=== PATIENT | female | born 1995 | race Caucasian/White ===

== ENCOUNTER 2017-10-13 15:16 | Emergency (ER) | payer BC, SELFPAY ==
[2017-10-13 15:21] VITALS: BP 131/81; PULSE 88; RESP 16; TEMP 37; O2SAT 98
[2017-10-13 15:43] LABS: Clarity Sl Cloudy
[2017-10-13 15:44] LABS: Bilirubin Color Interference (Negative); Blood Color Interference (Negative); Glucose Color Interference mg/dL (Negative); Ketones Color Interference mg/dL (Negative); Leukocyte Esterase Color Interference (Negative); Nitrite Color Interference (Negative); Urobilinogen Color Interference EU/dL (Up TO 0.2)
[2017-10-13 15:49] LABS: Bacteria Many HPF (Negative); C & S Indicated? Yes; RBC >50 (0-2); WBC >50 HPF (0-5)
--- NOTE | 2017-10-13 15:53 | ED.GENADUL ---
Disposition Clinical Impression: Urinary tract infection Disposition: HOME Condition: Stable Instructions: Urinary Tract Infection in Women (ED) Additional Instructions: Return immediately for any new or worsening symptoms including high fevers, persistent vomiting, or any further concerns she may have. Otherwise follow-up with your primary care provider as previously scheduled for next week for reassessment and take your antibiotics until fully complete. Prescriptions: Cephalexin [Keflex] 500 mg PO Q8H #21 cap Ondansetron ODT [Zofran Odt] 4 mg PO Q8H PRN #9 tabef PRN Reason: Nausea Referrals: Cristina Brown PA [Primary Care Provider] - 1 week (Follow-up with your primary care provider as previously arranged for reassessment.) Medical Decision Making - Lab Data Laboratory Tests 10/13/17 15:25 Urine Color [place] Urine Clarity Sl cloudy Urine pH Not Applicable Ur Specific [place] 1.020 Urine Protein Color interference Urine Ketones Color interference Urine Blood Color interference Urine Nitrite Color interference Urine Bilirubin Color interference Urine Urobilinogen Color interference Ur Leukocyte Esterase Color interference Urine RBC >50 H Urine WBC >50 Ur Epithelial Cells Not Applicable Urine Crystals Not Applicable Urine Bacteria Many Urine Mucus Not Applicable Ur Culture Indicated? Yes Urine Glucose Color interference Results reviewed for labs ordered during visit: Yes - Medical Decision Making Patient presenting to the emergency department for chief complaint of burning urination, and less than 24 hours of right flank pain and some associated nausea. Physical exam shows right CVA tenderness and suprapubic tenderness otherwise unremarkable exam. Patient did state that she has had vaginal discharge for years and no change in this and no odor vaginal exam was offered but she stated no chance of sexually transmitted disease and that due to this going on for years she would prefer to follow-up with gynecology for exam. I feel that deferring this exam at this time is appropriate given symptoms are more consistent with urinary tract infection and more suspicion of radiation to right flank and actually pyelonephritis given the patient's vital signs are stable and patient is overall well in appearance nontoxic. Plan to perform urinalysis and test. After review of urinalysis which is obscured by patient taking AZO tablets but does show significant number of WBCs and bacteria culture was automatically ordered by lab and I do feel that treatment is warranted. Patient was previously on Bactrim within 6 months so I do feel that putting patient on Keflex is appropriate at this time. Patient prescribed Keflex 500 mg every 8 hours for 7 days and informed that she should follow-up with her primary care provider in 1 week for reassessment. Patient to return immediately for any new or worsening symptoms. Patient also prescribed Zofran for any further nausea. Patient encouraged to return for any new or worsening symptoms including high fevers, persistent vomiting, or any further concerns she may have. After discussion of diagnosis and plan of care with patient patient agreed and stated no further needs, questions, or concerns at this time. History of Present Illness - General Chief complaint: Urinary Stated complaint: KIDNEY PAIN, UTI Time Seen by Provider: 10/13/17 15:22 - History of Present Illness Initial comments: Patient reports 3 days ago she began having some suprapubic pain and burning with urination. She did have symptoms a couple weeks ago and was seen at [facility] but never started her antibiotics. Yesterday she began having significant flank pain along with the burning urination is now feeling sick. She did state that she got nauseous along with her symptoms but otherwise denies fever chills, vomiting, diarrhea. Onset/Timin -: days(s) Location: back (flank), abdomen (Suprapubic) Severity scale (1-10): 8 Quality: aching Consistency: constant Improves with: none Worsens with: none Associated Symptoms: denies other symptoms Treatments Prior to Arrival: other (AZO) - Related Data Acetaminophen [Tylenol] 325 mg PO PRN 04/19/17 Norelgestromin/Ethin.estradiol [Xulane Patch] 1 each TD weekly 90 Days #9 patch.wk 06/02/17 Ibuprofen [Motrin] 600 mg PO TID PRN #15 tab 07/19/17 Cephalexin [Keflex] 500 mg PO Q8H #21 cap 10/13/17 Ondansetron ODT [Zofran Odt] 4 mg PO Q8H PRN #9 tabef 10/13/17 Allergies Allergy/AdvReac Type Severity Reaction Status Date / Time aspirin AdvReac Intermediate Nausea Unverified 07/19/17 06:30 Review of Systems Constitutional: malaise. denies: chills, fever Respiratory: no symptoms reported Gastrointestinal: abdominal pain (Suprapubic), nausea. denies: vomiting, diarrhea Genitourinary: as per HPI, urgency, dysuria, frequency, discharge (For years with no change, no odor). 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 Absent: respiratory distress, wheezes, rales, rhonchi, stridor - Cardiovascular Cardiovascular Exam: Present: regular rate, normal rhythm, normal heart sounds. Absent: tachycardia, systolic murmur, diastolic murmur, rubs, gallop, clicks - GI/Abdominal GI/Abdominal exam: Present: soft, tenderness (Suprapubic), normal bowel sounds. Absent: guarding, rebound, rigid, organomegaly, mass, bruit - Expanded GI/Abdominal Exam No standard instances GI/Abdominal exam: Absent: Mendieta's sign, Rovsing's sign, tenderness at Mcburney's Point - Back Exam Back exam: Present: CVA tenderness (R). Absent: CVA tenderness (L) - Neurological Exam Neurological exam: Present: alert, oriented X3, normal gait. Absent: altered - Skin Skin exam: Present: warm, dry, normal color Course Vital Signs - 24 hr 10/13/17 15:21 Temperature 37.0 C Pulse 88 Respiratory 16 Rate Blood Pressure 131/81 Pulse Oximetry 98
[2017-10-13] MEDS: Cephalexin 500 MG CAP PO (16:10)
[2017-10-13] MEDS: Ondansetron O.D.T. 4 MG TABEF PO (16:10)
[2017-10-13 16:13] VITALS: BP 131/81; PULSE 88; RESP 16; TEMP 37; O2SAT 98
== END 2017-10-13 16:20 | disposition home or self-care (01) ==
PROVIDERS: Emergency Provider Physician Assistant; PCP Physician Assistant Medical
DX: N39.0 Urinary tract infection, site not specified (principal); B96.20 Unspecified Escherichia coli [E. coli] as the cause of diseases classified elsewhere
CPT/HCPCS: 81025; 87077; 99283; 81003; 81015; 87086; 87186

== ENCOUNTER → 2017-10-19 18:05 | Outpatient (REF) | payer BC, SELFPAY ==
[2017-10-19 20:57] LABS: Epithelial Cells Many HPF (Negative); Other Cells Mod Transitional (Negative); WBC 20-50 HPF (0-5)
[2017-10-19 20:58] LABS: Bacteria Many HPF (Negative); C & S Indicated? No/Sq. Contamination; Crystals Negative HPF (Negative); Mucus Moderate (Negative)
== END ==
LOC: NCHCN 18:05
PROVIDERS: PCP Physician Assistant Medical; Visit Provider Specialist/Technologist Athletic Trainer
DX: N39.0 Urinary tract infection, site not specified (principal); R10.2 Pelvic and perineal pain
CPT/HCPCS: 81015; 87480; 87510; 87660

== ENCOUNTER 2017-11-15 18:54 | Outpatient (REF) | payer BC, SELFPAY | END 2017-11-15 19:14 | LOC: NCHCN 18:54 | PROVIDERS: PCP Physician Assistant Medical; Visit Provider Physician Assistant Medical | DX: R11.0 Nausea (principal); R31.9 Hematuria, unspecified; R10.9 Unspecified abdominal pain | CPT/HCPCS: 87086 ==

== ENCOUNTER 2017-11-17 13:16 | Outpatient (CLI) | payer BC, SELFPAY ==
--- NOTE | 2017-11-17 12:52 | DI.US_ITS ---
SYMPTOMS/DIAGNOSIS: JUDY FLANK PAIN, BLOOD IN URINE, ? KIDNEY STONES RENAL ULTRASOUND: Comparison is made with renal colic CT dated [id number]. The kidneys are normal in size and show normal parenchymal thickness and echogenicity. No renal calculi or hydronephrosis is seen. There is no perinephritic collection. The bladder prevoid volume measured 171 cc's. Both ureteral jets were identified. There is no postvoid residual. No bladder mass or bladder stone is seen. IMPRESSION: Negative renal ultrasound.
== END 2017-11-17 13:36 ==
PROVIDERS: PCP Physician Assistant Medical; Visit Provider Specialist/Technologist Athletic Trainer
DX: R31.9 Hematuria, unspecified (principal); R10.31 Right lower quadrant pain; R10.32 Left lower quadrant pain
CPT/HCPCS: 76770

== ENCOUNTER 2017-11-29 15:19 | Outpatient (REF) | payer BC, SELFPAY ==
[2017-12-01 10:45] LABS: HIV-1/2 Ag & Ab Screen Negative (NEGAT)
[2017-12-01 12:25] LABS: Hepatitis C Ab w Rflx HCV PCR Negative (NEGAT)
[2017-12-01 12:29] LABS: Syphilis Serology (RPR) Negative (Negative)
[2017-12-01 14:22] LABS: Chlamydia Result Negative; GC Result Negative; Specimen Description CERVIX
== END 2017-11-29 15:39 ==
LOC: NCHCN 15:19
PROVIDERS: PCP Physician Assistant Medical; Visit Provider Physician Assistant Medical
DX: N89.8 Other specified noninflammatory disorders of vagina (principal); Z11.3 Encounter for screening for infections with a predominantly sexual mode of transmission; Z11.4 Encounter for screening for human immunodeficiency virus [HIV]; Z01.84 Encounter for antibody response examination; N39.0 Urinary tract infection, site not specified
CPT/HCPCS: 86803; 87389; 87491; 87591; 86592; 87086; 87480; 87510; 87660

== ENCOUNTER 2018-03-02 16:43 | Outpatient (REF) | payer BC, SELFPAY ==
[2018-03-05 13:56] LABS: Chlamydia Result Negative; GC Result Negative
== END 2018-03-02 17:03 ==
LOC: LBN 16:43
PROVIDERS: PCP Physician Assistant Medical; Visit Provider Obstetrics & Gynecology Gynecology
DX: R10.2 Pelvic and perineal pain (principal); Z11.3 Encounter for screening for infections with a predominantly sexual mode of transmission
CPT/HCPCS: 87491; 87591; 87480; 87510; 87660

== ENCOUNTER 2018-04-11 15:56 | Emergency (ER) | payer BC, SELFPAY ==
--- NOTE | 2018-04-11 16:34 | NUR.NOTE ---
last night PT developed flank pain 7/10 bilateral and when the PT urinates she states 10/10 pain in her urethra. urin dark urn (ornge/brown) pt has a history of UTIs she states more than i can count
[2018-04-11 16:39] VITALS: BP 134/70; PULSE 95; RESP 15; TEMP 36.8; O2SAT 99
[2018-04-11 17:25] LABS: Clarity Cloudy; Specific Gravity 1.025 (1.005-1.025)
[2018-04-11 17:46] LABS: WBC >50 HPF (0-5)
[2018-04-11 17:47] LABS: C & S Indicated? Yes; RBC >50 (0-2)
--- NOTE | 2018-04-13 19:07 | NUR.NOTE ---
Nursing Note: called patient at 1900 04/13/2018 regarding positive Escherichia coli in urine patient stated that she eloped from our ED and received care the same day at [facility] she received levofloxacin 500 mg daily for 7 days. I reported her treatment to DR. Kendall and he stated that it was appropriate.
== END 2018-04-11 18:43 ==
PROVIDERS: Emergency Provider Physician Assistant; PCP Family Medicine
DX: N39.0 Urinary tract infection, site not specified (principal); Z53.21 Procedure and treatment not carried out due to patient leaving prior to being seen by health care provider
CPT/HCPCS: 87077; 99282; 81003; 81015; 87086; 87186

== ENCOUNTER 2019-07-19 16:33 | Emergency (ER) | payer BC, SELFPAY ==
--- NOTE | 2019-07-19 16:36 | ED.GENADUL_ITS ---
Discharge Plan Disposition Patient Disposition: HOME Condition: Good Discharge Details Chief Complaint: FlankPain Clinical Impression: Abdominal pain, Hypokalemia Primary Care Provider: Chika Fleming V ED Provider: Ana M Villeda Home Meds and New Rx's Prescriptions: New ondansetron 4 mg tablet,disintegrating 4 mg PO Q6H PRN (Reason: nausea and vomiting) Qty: 14 RF: 0 Continued acetaminophen [Tylenol] 325 MG tablet 325 mg PO PRN RF: 0 norethindrone acetate 5 mg tablet 5 mg PO DAILY RF: 0 Lupron Depot (6 Month) 45 mg Syringe Kit 45 mg IM [id number] RF: 0 Discharge Instructions Instructions: Hypokalemia (ED), Abdominal Pain (ED) Additional Instructions: Encourage water intake. You may use the Zofran as prescribed to help with any recurrence of your nausea. Please call Dr. Desouza tomorrow morning to schedule follow-up appointment to discuss your recurrence abdominal discomfort. Your labs are reassuring here. Your potassium was low. You may replace this either with oral supplementations and vitamins or increase your potassium in your diet. If you develop new or worsening symptoms please seek care urgently once again. Referrals: Chika Fleming MD [Primary Care Provider] - Wyatt Desouza [ [facility] ST[facility]FF PHYSICIAN] - Discharge Data Discharge Date/Time-TO BE ENTERED AT DEPARTURE: 07/19/19 18:37 Medical Decision Making Patient is a pleasant 24-year-old female with past medical history of multiple urinary tract infections, anxiety, BV, chlamydia, depression, endometriosis presenting today with chief complaint of 1 month of nausea and left-sided abdominal pain. She reports that she is having nausea for the past month since stopping her leuprolide. She reports that the Lupron was helping with this chronic nausea that she associated with her endometriosis. Patient reports that she had an exploratory laparotomy in January. Is been on the Lupron since that time. Patient reports that the current symptoms are very similar to when her endometriosis historically. She is concerned this may be returning. She denies any unusual vaginal discharge. No dysuria. Has had UTIs historically and states that this does not feel similar. Denies any fevers or chills. Left- sided abdominal pain began this afternoon and does radiate around to the left flank. This pain is worse with rotational movements, particularly rotation to the right. She denies any chest pain or shortness of breath. Denies any alcohol intake. No illicit drug use. On exam, patient is resting comfortably. Lungs are clear, normal cardiac exam, no CVA tenderness. Although patient endorses some mild discomfort along the length of the left side of the abdomen, no peritoneal findings were noted. Patient is not tender over her pelvis. At this point, patient's history is most concerning for recurrent endometriosis. Her abdominal exam is without evidence of surgical abdomen. No pain over McBurney's point, negative Mendieta sign. She has no tenderness over her pelvis. History and exam are not consistent with ovarian torsion. UPT is negative, history is not consistent with ectopic . Patient has had multiple CTs historically. I do not feel that imaging is warranted at this time and will begin with baseline screening labs. Labs were reviewed and discussed with the patient. Urine was contaminated. However, she is largely asymptomatic at this time. She reports that this does not feel like her urinary tract infections have historically. Patient's potassium is low at 3.2. She was given oral supplementation here and I did enco urage potassium intake at home. No leukocytosis. Labs otherwise without significant abnormality. Patient is very teary. She states that this feels very similar to when she has had endometriosis historically. She is concerned that the cessation of the Lupron caused her symptoms to return. She states that this is very debilitating for her historically. She is followed closely by gynecology at [facility]. Encourage that she follow Dr. Desouza to schedule more prompt follow-up appointment. She does have appointment in a few weeks. Patient did have good resolution of her symptoms while on Lupron. Patient and I discussed new/worsening symptoms that should prompt her to seek care urgently once again. [facility] General Mode of arrival: ambulatory . Date/Time Provider Initiated Documentation: 07/19/19 16:34 . Limitations to Documentation: no limitations . Information obtained by: patient and RN notes reviewed . History of Present Illness 24 year old F presents to the emergency department with the chief complaint of left sided abdominal pain, nausea, described as moderate and similar to prior episodes (endorses chronic abdominal pain associated with endometriosis. L sided pain new today. Nausea x 1 month), with intensity rated at 5. Quality is described as aching, and is localized to the abdomen. Patient reports radiation to back. Patient started experiencing this hour(s) (left sided abdominal pain began this morning) and it has been constant. Immobilization improves symptom(s), Movement worsens symptoms . Patient notes loss of appetite and nausea/vomiting (endorses nausea x 1 month); denies chest pain, cough, fever/chills, rash and shortness of breath. Patient did receive the following treatments prior to arrival, none Related Data Home Medications Medication Instructions Recorded Confirmed acetaminophen [Tylenol] 325 mg PO PRN 04/19/17 07/19/19 Lupron Depot (6 Month) 45 mg IM [id number] 07/19/19 07/19/19 norethindrone acetate 5 mg PO DAILY 07/19/19 07/19/19 ondansetron 4 mg PO Q6H PRN #14 tab 07/19/19 Previous Rx's Medication Instructions Recorded ondansetron 4 mg PO Q6H PRN #14 tab 07/19/19 Allergies Allergy/AdvReac Type Severity Reaction Status Date / Time aspirin AdvReac Intermediate Nausea Unverified 07/19/19 16:42 General SANTHOSH: 3 Review of Systems Constitutional Constitutional: Reports as per HPI, Denies chills, Denies fatigue, Denies fever(s) and Denies headache(s) ENT Ears, Nose, Mouth, and Throat: Denies headache(s) Cardiovascular Cardiovascular: Reports as per HPI, Denies chest pain and Denies dyspnea Respiratory Respiratory: Reports as per HPI, Denies cough and Denies dyspnea Gastrointestinal Gastrointestinal: Reports as per HPI Musculoskeletal Musculoskeletal: Reports as per HPI and Denies back pain Integumentary/Breasts Skin/Breast: Reports as per HPI and Denies rash Neurologic Neurologic: Reports as per HPI and Denies headache(s) Endocrine Endocrine: Denies fatigue [facility] Medical History BV (bacterial vaginosis) (Resolved) 11/2016. Rx with Metronidazole 03/20/17. Rx with Metronidazole. Chlamydia infection (Resolved) 04/17/14. Treated with neg LEANNE. 06/04/15 New infection. Rx with Azithromycin 03/29/2016 Rx with Azithromycin. LEANNE neg 05/02/16. Contraceptive management (Acute) 03/2014 Nexplanon 07/2016 Nexplanon removed. OCPs started. 09/2016 Noncompliant with OCPs. Mirena IUD inserted. 05/2017 Mirena removed, Ortho Evra patch initiated Dysmenorrhea in adolescent (Resolved) improved with hormonal contraception. Frequent headaches (Resolved) ? menstrual related. UTI (urinary tract infection) (Resolved) 03/2017 EColi. Surgical History Repair of umbilical hernia (Resolved ~2010) Family History (Updated 03/12/14 @ 22:30 by Vero Simpson MD) Mother No problems noted. Other Graves disease Social History Smoking/Tobacco Use Status: Never Alcohol Intake: never Drug use: Current Sobriety Substance use type: marijuana and other Details: marijauna daily 4-5 x day Housing: house Number of Children: 0 current occupation: [employer] Sexually active: Yes Seatbelt use: always Do you feel safe in your relationship?: Yes Female Reproductive History Menstrual control method: patch Exam Const General: cooperative, healthy appearing, comfortable, no acute distress and well developed Nutritional Appearance: average body habitus and well nourished Orientation: alert and awake HENMT Head: normal to inspection Mouth: moist mucous membranes Resp Effort & Inspection: normal respiratory effort, able to speak in complete sentences and no respiratory distress Auscultation: clear to auscultation bilaterally, no rales, no rhonchi and no wheezes Cardio Rate: regular rate Rhythm: regular rhythm Heart Sounds: S1 normal and S2 normal GI Inspection: normal to inspection, no abdominal wall ecchymosis, no edema, non- distended, no visible herniation and no visible pulsation Palpation: soft, no hepatosplenomegaly, not firm, no guarding, no hernias, no masses, not rigid and tender (fairly diffuse tenderness along left side) obturator sign negative, psoas sign negative and with no rebound tenderness Percussion: normal to percussion Auscultation: normal bowel sounds Back/Spine/Pelvis Back: no CVA tenderness Thoracic/Lumbar Spine: thoracic and lumbar spine normal to inspection (tenderness with rotation to right side) Skin General skin exam: no rashes or lesions noted Trauma: no lacerations or abrasions Neuro General: patient alert and patient awake Cognition: normal cognition Speech: speech normal Gait: normal gait Psych Appearance: grossly normal and well kempt Mental Status: mental status grossly normal Speech and Movement: speech and movement normal
[2019-07-19 16:40] VITALS: BP 132/86; PULSE 89; RESP 18; TEMP 36.7; O2SAT 98
[2019-07-19] MEDS: Ondansetron 4 MG/2 ML VIAL IVP (17:03)
[2019-07-19] MEDS: Lactated Ringers 1,000 ML 1000 ML IV (17:03)
[2019-07-19] MEDS: Normal Saline Flush 10 ML SYR IVP (17:04)
[2019-07-19 17:43] LABS: ALT 20 U/L (14-59); AST 13 U/L (15-37); Albumin 4.7 g/dL (3.4-5.0); Alkaline Phosphatase 70 U/L (46-116); Anion Gap 4.2 mmol/L (3-11); BUN 12 mg/dL (7-18); Bilirubin, Total 0.4 mg/dL (0.2-1.0); CO2 30.8 mmol/L (21.0-32.0); CREATININE 0.91 mg/dL (0.55-1.02); Calcium 9.2 mg/dL (8.5-10.1); Chloride 101 mmol/L (98-107); Glucose 97 mg/dL (74-106); Lipase 80 U/L (73-393); Potassium 3.2 mmol/L (3.5-5.1); Sodium 136 mmol/L (136-145); Total Protein 8.5 g/dL (6.4-8.2)
[2019-07-19 17:54] LABS: Abs Immature Grans 0.01 k/cumm (0.0-0.09); Absolute Basophil Count 0.02 k/cumm (0.0-0.2); Absolute Eosinophil Count 0.04 k/cumm (0.0-0.7); Absolute Lymphocyte Count 2.08 k/cumm (1.2-3.4); Absolute Monocyte Count 0.51 k/cumm (0.11-0.7); Absolute Neutrophil Count 4.02 k/cumm (1.2-6.7); Basophils % 0.3; Eosinophils % 0.6; HCT 42.2 % (36.0-46.0); HGB 14.1 g/dL (12.0-15.5); Immature Grans % 0.1 %; Lymphocytes % 31.1; Mean Corp. HGB Concentration 33.4 g/dL (32.0-36.0); Mean Corpuscular Hemoglobin 30.1 pg (27.0-33.0); Mean Corpuscular Volume 90.2 fL (80-95); Mean Platelet Volume 10.5 fL (8.0-11.0); Monocytes % 7.6; Neutrophils % 60.3; Platelet Count 280 x1000/uL (130-400); RBC 4.68 m/cumm (4.00-5.20); RBC Distribution Width 11.7 % (11.7-14.6); White Blood Cell Count 6.68 k/cumm (4.4-10.8)
[2019-07-19 18:03] LABS: Bilirubin Negative (Negative); Blood Negative (Negative); Clarity Clear (Clear); Glucose Negative (Negative); Ketones Negative (Negative); Leukocyte Esterase Trace (Negative); Nitrite Negative (Negative); Specific Gravity 1.025 (1.005-1.025); Urobilinogen 0.2 EU/dL (Up TO 0.2); pH 7.5 (5-8)
[2019-07-19 18:08] LABS: RBC Negative HPF (0-2); WBC 0-2 HPF (0-5)
[2019-07-19 18:09] LABS: Bacteria Few HPF (Negative); C & S Indicated? No/Sq. Contamination; Casts Negative LPF (Negative); Crystals Moderate Amorphous HPF (Negative); Epithelial Cells Moderate HPF (Negative); Mucus Trace (Negative)
[2019-07-19] MEDS: POTASSIUM CHLORIDE 20 MEQ, POTASSIUM CHLORIDE 10 MEQ 30 MEQ PO (18:21)
== END 2019-07-19 18:37 | disposition home or self-care (01) ==
PROVIDERS: Emergency Provider Physician Assistant; PCP Family Medicine
DX: R10.32 Left lower quadrant pain (principal); M54.5 Low back pain; R11.0 Nausea; E87.6 Hypokalemia; Z87.440 Personal history of urinary (tract) infections
CPT/HCPCS: 36415; 80053; 81025; 83690; 96361; 96374; 99284; 81003; 81015; 85025; J2405

== ENCOUNTER 2019-12-18 08:10 | Emergency (ER) | payer SELFPAY ==
[2019-12-18 08:19] VITALS: BP 107/76; PULSE 110; RESP 16; TEMP 36.7; O2SAT 99
--- NOTE | 2019-12-18 08:38 | ED.GENADUL_ITS ---
Discharge Plan Disposition Patient Disposition: HOME Condition: Stable Discharge Details Clinical Impression: Diarrhea Primary Care Provider: Chika Fleming V ED Provider: Sohan Youngblood Home Meds and New Rx's Prescriptions: Continued acetaminophen [Tylenol] 325 MG tablet 325 mg PO PRN RF: 0 Discharge Instructions Instructions: Acute Diarrhea (ED) Additional Instructions: At this time you have declined any testing. Plenty of fluids to avoid dehydration. [id number] Imodium as directed for discomfort. Please watch for new or worsening symptoms and return to the ER for any concerns. Otherwise I recommend reaching out to your primary care provider at your convenience for outpatient care. Stand Alone Forms: Work Release Medical Decision Making 24-year-old female presents requesting a work note so she may return to work today. She had diarrhea and abdominal cramping yesterday which caused her to leave work early. She reports feeling much improved today, feels as though she can go to work normally, and denies any abdominal pain. She denies fever, black tarry stools, bright red blood in her stools, recent travel, sick contact or bad food exposure. She does admit that she is lactose intolerant and had milk 2 nights ago which may have caused her symptoms. She declines any blood work, IV access, IV fluids etc. She states I am sorry for wasting your time, I just need a work note. Patient appears well, nontoxic. Heart rate was 110 in triage but upon my evaluation she was in the upper 80s. Abdomen is soft, nontender. She is tolerating p.o. fluids without difficulty. Will provide work note to return to work at 9:00 this morning. She was encouraged to return to the ER for new or worsening symptoms, otherwise contact her primary care provider. Patient has no additional questions or concerns. Medical Records Medical records reviewed: Yes I reviewed the patient's medical records. HPI General Mode of arrival: ambulatory . Date/Time Provider Initiated Documentation: 12/18/19 08:12 . Limitations to Documentation: no limitations . Information obtained by: patient . HPI Narrative: 24-year-old female presents to the ER requesting a return to work note. She states that yesterday she left work early because she had mild diarrhea and is scheduled to return to work at 9 AM this morning, work requires her to be seen and obtain a work note. She reports that she is lactose intolerant, had milk the night before, and wonders if this may have caused her symptoms. She reports that this morning she feels significantly better than she did yesterday. She had mild abdominal cramping with the diarrhea yesterday but denies any pain today. Denies any recent travel, sick exposure, bad food exposure. She denies fever, chest pain, back pain, nausea, vomiting, dysuria, constipation, black tarry stools or bright red blood in her stools. She has made it known that she does not desire to have any blood work, IV access, IV fluid, etc. Related Data Home Medications Medication Instructions Recorded Confirmed acetaminophen [Tylenol] 325 mg PO PRN 04/19/17 12/18/19 Allergies Allergy/AdvReac Type Severity Reaction Status Date / Time aspirin AdvReac Intermediate Nausea Unverified 12/18/19 08:22 General Stated Complaint: Abd Prob SANTHOSH: 3 Review of Systems Constitutional Constitutional: Denies fever(s) and Denies headache(s) ENT Ears, Nose, Mouth, and Throat: Denies headache(s) Cardiovascular Cardiovascular: Denies chest pain Respiratory Respiratory: Denies cough Gastrointestinal Gastrointestinal: Reports abdominal pain, Denies melena, Denies hematochezia, Reports diarrhea, Denies nausea and Denies vomiting Musculoskeletal Musculoskeletal: Denies back pain Integumentary/Breasts Skin/Breast: Denies rash Neurologic Neurologic: Denies headache(s) [facility] Medical History BV (bacterial vaginosis) 11/2016. Rx with Metronidazole 03/20/17. Rx with Metronidazole. Chlamydia infection 04/17/14. Treated with neg LEANNE. 06/04/15 New infection. Rx with Azithromycin 03/29/2016 Rx with Azithromycin. LEANNE neg 05/02/16. Contraceptive management 03/2014 Nexplanon 07/2016 Nexplanon removed. OCPs started. 09/2016 Noncompliant with OCPs. Mirena IUD inserted. 05/2017 Mirena removed, Ortho Evra patch initiated Dysmenorrhea in adolescent improved with hormonal contraception. Frequent headaches ? menstrual related. UTI (urinary tract infection) 03/2017 EColi. Surgical History Repair of umbilical hernia (~2010) Family History Mother No problems noted. Other Graves disease Social History Smoking/Tobacco Use Status: Never Alcohol Intake: never Drug use: Current Sobriety Substance use type: marijuana and other Details: marijauna daily 4-5 x day Housing: house Number of Children: 0 current occupation: [employer] [place] [employer] Sexually active: Yes Seatbelt use: always Do you feel safe at home: Yes Do you feel safe in your relationship?: Yes Female Reproductive History Menstrual control method: patch Exam Const General: cooperative, healthy appearing, comfortable and no acute distress Orientation: alert and awake HENMT Head: normal to inspection, normocephalic and atraumatic Mouth: moist mucous membranes Eyes Conjunctivae: conjunctivae normal Sclera: sclerae normal Neck Neck: normal visual inspection, full ROM, trachea midline and supple Resp Effort & Inspection: normal respiratory effort and able to speak in complete sentences Auscultation: clear to auscultation bilaterally Cardio Rate: regular rate Rhythm: regular rhythm GI Palpation: soft, not firm, no guarding, not rigid and nontender Back/Spine/Pelvis Back: No back tenderness Skin General skin exam: no rashes or lesions noted Neuro General: patient alert, patient awake, moves all extremities and no focal motor deficits Cognition: normal cognition Speech: speech normal Gait: normal gait Sensory Exam: no sensory deficits noted Psych Appearance: grossly normal Mental Status: mental status grossly normal Course Vital Signs Vital signs: Vital Signs Temperature 36.7 C 12/18/19 08:19 Pulse 110 H 12/18/19 08:19 Respiratory Rate 16 12/18/19 08:19 Blood Pressure 107/76 12/18/19 08:19 Pulse Oximetry 99 12/18/19 08:19 Temperature 36.7 C 12/18/19 08:19 Temperature Source Tympanic 12/18/19 08:19 Pulse 110 H 12/18/19 08:19 Respiratory Rate 16 12/18/19 08:19 Blood Pressure 107/76 12/18/19 08:19 Blood Pressure Position Sitting 12/18/19 08:19 Pulse Oximetry 99 12/18/19 08:19 Oxygen Delivery Method Room Air 12/18/19 08:19 Oxygen Flow Rate 0 12/18/19 08:19 Pain Level 4 12/18/19 08:19
== END 2019-12-18 08:46 | disposition home or self-care (01) ==
PROVIDERS: Emergency Provider Physician Assistant; PCP Internal Medicine
DX: R19.7 Diarrhea, unspecified (principal); Z02.79 Encounter for issue of other medical certificate
CPT/HCPCS: 99282

== ENCOUNTER 2020-02-18 04:07 | Emergency (ER) | payer BC, SELFPAY ==
[2020-02-18 04:15] VITALS: BP 149/96; PULSE 89; RESP 18; TEMP 36.4; O2SAT 98
--- NOTE | 2020-02-18 04:27 | ED.GENADUL_ITS ---
Discharge Plan Disposition Patient Disposition: HOME Condition: Stable Discharge Details Clinical Impression: Nausea Primary Care Provider: Lucy Waters ED Provider: Chris Kendall Home Meds and New Rx's Prescriptions: New ondansetron 4 mg tablet,disintegrating 4 mg PO Q8H PRN (Reason: nausea and vomiting) Qty: 30 RF: 0 Discharge Instructions Additional Instructions: follow up as scheduled on monday with your provider you can take 1000mg tylenol and if not allergies to it 600mg ibuprofen every 6 hours if you feel more ill, have worsening pain or persistent vomit return to the emergency department Medical Decision Making 24 yo female who states she has a hx of endometriosis for which she is prescribed oxycodone, anxiety, comes in with lower abdominal and pelvic pain radiating to the back since yesterday. She didn't take any oxycodone or other medications as she felt like she may throw it up. She arrives tearful though when talking does speak clearly and seems less in pain. She localizes the pain to the left and right lower abdomen and is tender with no guarding or rebound and no upper abdominal tenderness. Denies vaginal bleeding or d/c and urine hcg negative. Could be exacerbation of her endometriosis but could also be torsion vs appendicitis vs diverticulitis among other pathology. I recommended lab work and a cat scan but she declines and states she just wants to have zofran to help her nausea. She has the capacity to make her own decisions and understands risks of missing these and other pathology that ct and lab work would show along with possible pelvic exam but she declines and just wants her nausea to go away as she states this feels just like her endometriosis. Will administer zofran and reassess. pt tolerating po and does have some relief of pain with tylenol and would like to go home and f/u with her obgyn as scheduled on monday. She still declinse workup at this time, she understands she can return if she would like lab work and imaging and another abdominal exam. Differential Diagnosis Differential Diagnosis: torsion, endometriosis, uti, ectopic, appendicitis Medical Records Medical records reviewed: Yes I reviewed the patient's medical records. HPI General Mode of arrival: ambulatory . Date/Time Provider Initiated Documentation: 02/18/20 04:19 . Limitations to Documentation: no limitations . Information obtained by: patient . History of Present Illness 24 year old F presents to the emergency department with the chief complaint of nausea, described as moderate, Patient started experiencing this day(s) (1) and it has been constant. No relieving factors improve symptom(s), No exacerbating factors reported . Patient notes denies cough. 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 Rx with Metronidazole 03/20/17. Rx with Metronidazole. Chlamydia infection 04/17/14. Treated with neg LEANNE. 06/04/15 New infection. Rx with Azithromycin 03/29/2016 Rx with Azithromycin. LEANNE neg 05/02/16. Contraceptive management 03/2014 Nexplanon 07/2016 Nexplanon removed. OCPs started. 09/2016 Noncompliant with OCPs. Mirena IUD inserted. 05/2017 Mirena removed, Ortho Evra patch initiated Dysmenorrhea in adolescent improved with hormonal contraception. Frequent headaches ? menstrual related. UTI (urinary tract infection) 03/2017 EColi. Surgical History Repair of umbilical hernia (~2010) Family History Mother No problems noted. Other Graves disease Social History Smoking/Tobacco Use Status: Never Smoking risk assessment performed?: Yes Alcohol Intake: never Drug use: Occasionally Substance use type: marijuana and other Details: rasheed daily 4-5 x day Housing: house Number of Children: 0 current occupation: [employer] [place] [employer] Sexually active: Yes Seatbelt use: always Do you feel safe at home: Yes Do you feel safe in your relationship?: Yes Female Reproductive History Menstrual control method: patch Exam Const General: anxious Orientation: alert HENMT Head: normal to inspection Ears: external ears normal General nose exam: external nose normal Mouth: moist mucous membranes Eyes General: appearance normal, both eyes and all related structures Neck Neck: normal visual inspection Resp Effort & Inspection: normal respiratory effort and able to speak in complete sentences Cardio Rate: regular rate GI Palpation: soft and not rigid Skin General skin exam: no rashes or lesions noted Neuro General: patient alert and patient oriented x3 Extrem General: normal to inspection Psych Mental Status: mental status grossly normal Course Vital Signs Vital signs: Vital Signs Temperature 36.4 C L 02/18/20 04:15 Pulse 89 02/18/20 04:15 Respiratory Rate 18 02/18/20 04:15 Blood Pressure 149/96 H 02/18/20 04:15 Pulse Oximetry 98 02/18/20 04:15 Temperature 36.4 C L 02/18/20 04:15 Temperature Source Skin 02/18/20 04:15 Pulse 89 02/18/20 04:15 Respiratory Rate 18 02/18/20 04:15 Respiratory Effort 02/18/20 04:22 Blood Pressure 149/96 H 02/18/20 04:15 Blood Pressure Position Sitting 02/18/20 04:15 Pulse Oximetry 98 02/18/20 04:15 Oxygen Delivery Method Room Air 02/18/20 04:15 Oxygen Flow Rate 0 02/18/20 04:15 Pain Level 10 02/18/20 04:22
[2020-02-18] MEDS: Ondansetron O.D.T. 4 MG TABEF PO (04:32)
[2020-02-18] MEDS: Acetaminophen 500 MG TAB 1000 MG PO (04:32)
[2020-02-18] MEDS: Ibuprofen 600 MG TAB PO (05:05)
== END 2020-02-18 05:15 | disposition home or self-care (01) ==
PROVIDERS: Emergency Provider Emergency Medicine; PCP Internal Medicine
DX: R11.0 Nausea (principal); N80.9 Endometriosis, unspecified
CPT/HCPCS: 81025; 99283

== ENCOUNTER 2020-05-08 07:07 | Emergency (ER) | payer BC, SELFPAY ==
[2020-05-08 07:09] VITALS: BP 123/83; PULSE 103; RESP 14; TEMP 36.4; O2SAT 97
--- NOTE | 2020-05-08 07:38 | W.ED.GENAD ---
Discharge Plan Disposition Patient Disposition: HOME Condition: Stable Discharge Details Clinical Impression: Conjunctivitis, Swelling of left eyelid Primary Care Provider: Lucy Waters ED Provider: Edna Duran Home Meds and New Rx's Prescriptions: No Action No Known Home Meds RF: 0 Discharge Instructions Instructions: Blepharitis (ED), Conjunctivitis (ED) Additional Instructions: Apply the erythromycin ointment to your left eye including the portion of your upper and lower eyelid most closest to your eye 4 times daily for the next 5 days. Alternate tylenol and motrin as needed and directed for pain. Follow-up with your primary care doctor in 1 week. Return to the emergency department with any worsening or new concerning symptoms, such as fever, increased pain, redness or swelling. Discharge Data Discharge Date/Time-TO BE ENTERED AT DEPARTURE: 05/08/20 08:43 Discharge Physician: Edna Duran Medical Decision Making 25-year-old female presents with left eye and eyelid irritation, itching and tenderness since last night. She is concerned about possible pinkeye. Vitals within normal limits. She appears nontoxic. She has minimal left conjunctival injection with minimal left upper and lower eyelid edema and erythema just closest lashes. PERRLA. EOMI. No pain with EOMI. normal ENT exam. No focal deficits. No meningeal signs. No lymphadenopathy. Presentation most likely consistent with an early bacterial conjunctivitis, also consider a superficial early bacterial infection of upper or lower eyelid or a stye. Does not appear consistent with periorbital or orbital cellulitis. History and presentation not consistent with allergic or viral conjunctivitis. As she has tenderness to her eyelid and also complained of yellow crusting, will treat with erythromycin ointment to her eye and eyelids. Advised to return here immediately if she develops any new or worsening symptoms such as fever, increased pain, redness or swelling for reevaluation. Medical Records Medical records reviewed: Yes I reviewed the patient's medical records. HPI General Mode of arrival: ambulatory. Date/Time Provider Initiated Documentation: 05/08/20 07:38. Limitations to Documentation: no limitations. Information obtained by: patient. HPI Narrative: Patient is a 25-year-old female presents with left eye and eyelid irritation, itching and tenderness since last night. Patient states she is concerned about possible pinkeye. She denies any known exposure to pinkeye. She states the left upper and lower eyelid is slightly tender to touch. She also admits to tearing and minimal crusted yellow discharge. She denies headache, dizziness, neck pain, runny nose, sore throat or cough. She admits to some blurry vision in her left eye. She denies any new soaps, lotions, detergents, face wash, and states she does not wear make-up. She denies any other new medications. Related Data Home Medications Medication Instructions Recorded Confirmed Unknown [No Known Home Meds] 05/08/20 05/08/20 Allergies Allergy/AdvReac Type Severity Reaction Status Date / Time aspirin AdvReac Intermediate Nausea Unverified 05/08/20 07:11 General Stated Complaint: EyeProblem SANTHOSH: 5 Review of Systems All systems reviewed & are unremarkable except as noted in HPI and below Constitutional Constitutional: Reports as per HPI, Denies chills and Denies fever(s) Eyes Eyes: Denies blurry vision, Reports irritation and Reports itchy eyes ENT Ears, Nose, Mouth, and Throat: Denies dizziness, Denies sore throat and Denies throat swelling Cardiovascular Cardiovascular: Denies chest pain and Denies dyspnea Respiratory Respiratory: Denies cough and Denies dyspnea Gastrointestinal Gastrointestinal: Denies abdominal pain, Denies diarrhea and Denies vomiting Genitourinary Genitourinary: Denies hematuria and Denies dysuria Musculoskeletal Musculoskeletal: Denies back pain and Denies numbness Integumentary/Breasts Skin/Breast: Denies lesions and Denies rash Neurologic Neurologic: Denies dizziness, Denies localized weakness and Denies numbness Allergic/Immunologic Allergic/Immunologic: Reports itchy eyes and Denies throat swelling [facility] Medical History BV (bacterial vaginosis) 11/2016. Rx with Metronidazole 03/20/17. Rx with Metronidazole. Chlamydia infection 04/17/14. Treated with neg LEANNE. 06/04/15 New infection. Rx with Azithromycin 03/29/2016 Rx with Azithromycin. LAENNE neg 05/02/16. Contraceptive management 03/2014 Nexplanon 07/2016 Nexplanon removed. OCPs started. 09/2016 Noncompliant with OCPs. Mirena IUD inserted. 05/2017 Mirena removed, Ortho Evra patch initiated Dysmenorrhea in adolescent improved with hormonal contraception. Frequent headaches ? menstrual related. UTI (urinary tract infection) 03/2017 EColi. Surgical History Repair of umbilical hernia (~2010) Family History Mother No problems noted. Other Graves disease Social History Smoking/Tobacco Use Status: Never Smoking risk assessment performed?: Yes Alcohol Intake: never Drug use: Daily Substance use type: marijuana Housing: house Number of Children: 0 current occupation: [employer] [place] [employer] Sexually active: Yes Seatbelt use: always Do you feel safe at home: Yes Do you feel safe in your relationship?: Yes Female Reproductive History Menstrual control method: patch Exam Const General: cooperative, healthy appearing and no acute distress HENMT Head: normal to inspection Ears: hearing grossly normal bilaterally, external ears normal and TM's normal bilaterally General nose exam: external nose normal Mouth: oral mucosae normal Throat: posterior oropharynx normal Eyes General: appearance normal, both eyes and all related structures Periorbital: periorbital findings normal Eyelids: eyelid abnormality left upper eyelid erythema (very minimal upper eyelid near lashes), swelling (mild edema lower part near lashes) and tenderness (lower aspect near lashes) and left lower eyelid swelling (mild area just below lashes) Conjunctivae: conjunctival abnormality left conjunctival injection (very minimal); without chemosis, without discharge, without pallor and without subconjunctival hemmorhages Sclera: sclerae normal Cornea: corneas normal Pupils: PERRL EOM: EOM intact bilaterally Neck Neck: normal visual inspection Resp Effort & Inspection: normal respiratory effort and able to speak in complete sentences Cardio Rate: regular rate Skin General skin exam: no rashes or lesions noted Neuro General: patient alert, patient awake and patient oriented x3 Motor: muscle tone normal throughout Extrem General: normal to inspection and full ROM Psych Appearance: grossly normal Affect: normal affect Course Vital Signs Vital signs: Vital Signs Temperature 97.5 F L 05/08/20 07:09 Pulse 103 H 05/08/20 07:09 Respiratory Rate 14 05/08/20 07:09 Blood Pressure 123/83 05/08/20 07:09 Pulse Oximetry 97 05/08/20 07:09 Temperature 97.5 F L 05/08/20 07:09 Temperature Source Oral 05/08/20 07:09 Pulse 103 H 05/08/20 07:09 Respiratory Rate 14 05/08/20 07:09 Respiratory Effort Non-Labored 05/08/20 07:24 Blood Pressure 123/83 05/08/20 07:09 Blood Pressure Position Sitting 05/08/20 07:09 Pulse Oximetry 97 05/08/20 07:09 Oxygen Delivery Method Room Air 05/08/20 07:09 Oxygen Flow Rate 0 05/08/20 07:09 Pain Level 3 05/08/20 07:09
[2020-05-08 08:43] VITALS: PULSE 96
[2020-05-08] MEDS: Erythromycin Ophth Oint 3.5 GM TUBE OU (08:43)
== END 2020-05-08 08:43 | disposition home or self-care (01) ==
PROVIDERS: Emergency Provider Physician Assistant; PCP Internal Medicine
DX: H10.022 Other mucopurulent conjunctivitis, left eye (principal); H01.00B Unspecified blepharitis left eye, upper and lower eyelids
CPT/HCPCS: 99283

== ENCOUNTER 2020-05-23 19:29 | Emergency (ER) | payer BC, SELFPAY ==
[2020-05-23 19:33] VITALS: BP 136/89; PULSE 86; RESP 16; TEMP 36.3; O2SAT 100
--- NOTE | 2020-05-23 19:58 | ED.GENADUL_ITS ---
Discharge Plan Disposition Patient Disposition: HOME Condition: Stable Discharge Details Clinical Impression: Dental infection Primary Care Provider: Lucy Waters ED Provider: Sohan Youngblood Home Meds and New Rx's Prescriptions: New ondansetron HCl [Zofran] 4 mg tablet 4 mg PO Q8H PRNQty: 10 RF: 0 amoxicillin 875 mg tablet 875 mg PO BID Qty: 20 RF: 0 No Action No Known Home Meds RF: 0 Discharge Instructions Instructions: Dental Abscess (ED) Additional Instructions: Amoxicillin and Zofran as directed. [id number] Tylenol and/or Motrin as directed for discomfort. Cool and/or warm compresses every 2 hours for 20 minutes. Please watch for new or worsening symptoms and return to the ER for any concerns. Using the dental list provided, please establish dental care on Monday during business hours. Medical Decision Making 25-year-old female presents complaining of left lower dental pain for the past 24-48 hours. She is concerned about a dental infection and is requesting antibiotics. Patient is comfortable taking [id number] medications for pain control. Given her nausea, I will give her a single dose of Zofran now and then her first dose of amoxicillin as pharmacies are closed, she can case picker her prescription tomorrow. I will also provide her with a dental list to help expedite outpatient dental care. She appears well, nontoxic, manages secretions no difficulty, no evidence of trismus. She was encouraged to return to the ER for new or worsening symptoms. Patient comfortable with this plan and has no additional questions or concerns. Medical Records Medical records reviewed: Yes I reviewed the patient's medical records. HPI General Mode of arrival: ambulatory . Date/Time Provider Initiated Documentation: 05/23/20 19:50 . Limitations to Documentation: no limitations . Information obtained by: patient . HPI Narrative: This is a 25-year-old female, past medical history that includes anxiety, headaches, presenting to the ER today reporting worsening left lower dental pain over the past 1-2 days. She has taken [id number] medication with minimal relief. She now feels na useous. She denies fever, difficulty swallowing or speaking. She is able to manage her secretions. Patient states that she uses marijuana daily but does not smoke cigarettes. She does not have any dental care and reports that she is probably not seen a dentist in at least 10 years. No additional concerns or complaints at this time Related Data Home Medications Medication Instructions Recorded Confirmed Unknown [No Known Home Meds] 05/08/20 05/23/20 amoxicillin 875 mg PO BID #20 tab 05/23/20 ondansetron HCl [Zofran] 4 mg PO Q8H PRN #10 tab 05/23/20 Previous Rx's Medication Instructions Recorded amoxicillin 875 mg PO BID #20 tab 05/23/20 ondansetron HCl [Zofran] 4 mg PO Q8H PRN #10 tab 05/23/20 Allergies Allergy/AdvReac Type Severity Reaction Status Date / Time aspirin AdvReac Intermediate Nausea Unverified 05/23/20 19:37 General Stated Complaint: DentalOral SANTHOSH: 5 Review of Systems Constitutional Constitutional: Denies fever(s) ENT Ears, Nose, Mouth, and Throat: Denies neck pain and Denies sore throat Gastrointestinal Gastrointestinal: Reports nausea Musculoskeletal Musculoskeletal: Denies neck pain [facility] Medical History BV (bacterial vaginosis) 11/2016. Rx with Metronidazole 03/20/17. Rx with Metronidazole. Chlamydia infection 04/17/14. Treated with neg LEANNE. 06/04/15 New infection. Rx with Azithromycin 03/29/2016 Rx with Azithromycin. LEANNE neg 05/02/16. Contraceptive management 03/2014 Nexplanon 07/2016 Nexplanon removed. OCPs started. 09/2016 Noncompliant with OCPs. Mirena IUD inserted. 05/2017 Mirena removed, Ortho Evra patch initiated Dysmenorrhea in adolescent improved with hormonal contraception. Frequent headaches ? menstrual related. UTI (urinary tract infection) 03/2017 EColi. Surgical History Repair of umbilical hernia (~2010) Family History Mother No problems noted. Other Graves disease Social History Smoking/Tobacco Use Status: Never Smoking risk assessment performed?: Yes Alcohol Intake: never Drug use: Daily Substance use type: marijuana Housing: house Number of Children: 0 current occupation: [employer] [place] [employer] Sexually active: Yes Seatbelt use: always Do you feel safe at home: Yes Do you feel safe in your relationship?: Yes Female Reproductive History Menstrual control method: patch Exam Const General: cooperative, healthy appearing, comfortable and no acute distress Orientation: alert and awake [facility] Head: normal to inspection, normocephalic and atraumatic Ears: external ears normal, TM's normal bilaterally and EAC's normal General nose exam: external nose normal Face and sinus: normal facial exam Mouth: oral mucosae normal and moist mucous membranes Teeth and gingiva: poor dentition (Throughout) Teeth image: 1. Dental caries with discomfort to palpation. No swelling, erythema, drainage, pointing abscess Throat: posterior oropharynx normal Eyes General: appearance normal, both eyes and all related structures Conjunctivae: conjunctivae normal Neck Neck: normal visual inspection, full ROM, no lymphadenopathy, trachea midline, supple and nontender Resp Effort & Inspection: normal respiratory effort and able to speak in complete sentences Auscultation: clear to auscultation bilaterally Cardio Rate: regular rate Rhythm: regular rhythm Skin General skin exam: no rashes or lesions noted Neuro General: patient alert, patient awake, moves all extremities and no focal motor deficits Cognition: normal cognition Speech: speech normal Sensory Exam: no sensory deficits noted Psych Appearance: grossly normal Mental Status: mental status grossly normal Course Vital Signs Vital signs: Vital Signs Temperature 36.3 C L 05/23/20 19:33 Pulse 86 05/23/20 19:33 Respiratory Rate 16 05/23/20 19:33 Blood Pressure 136/89 05/23/20 19:33 Pulse Oximetry 100 05/23/20 19:33 Temperature 36.3 C L 05/23/20 19:33 Temperature Source Skin 05/23/20 19:33 Pulse 86 05/23/20 19:33 Respiratory Rate 16 05/23/20 19:33 Respiratory Effort 05/23/20 19:37 Blood Pressure 136/89 05/23/20 19:33 Pulse Oximetry 100 05/23/20 19:33 Pain Level 10 05/23/20 19:33
[2020-05-23] MEDS: Amoxicillin 875 MG TAB PO (20:03)
[2020-05-23] MEDS: Ondansetron O.D.T. 4 MG TABEF PO (20:03)
== END 2020-05-23 20:30 | disposition home or self-care (01) ==
PROVIDERS: Emergency Provider Physician Assistant; PCP Internal Medicine
DX: K04.7 Periapical abscess without sinus (principal)
CPT/HCPCS: 99283

== ENCOUNTER 2021-03-14 06:55 | Emergency (ER) | payer BC, SELFPAY ==
[2021-03-14 07:02] VITALS: BP 119/76; PULSE 104; RESP 14; TEMP 36.8; O2SAT 99
[2021-03-14 07:07] VITALS: RESP 16
--- NOTE | 2021-03-14 07:16 | ED.GENADUL_ITS ---
Discharge Plan Disposition Patient Disposition: HOME Condition: Stable Discharge Details Clinical Impression: Exposure to COVID-19 virus, Vaginal bleeding Primary Care Provider: Lucy Waters ED Provider: Chris Kendall Home Meds and New Rx's Prescriptions: Continued ondansetron HCl [Zofran] 4 mg tablet 4 mg PO Q8H PRNQty: 10 RF: 0 Discharge Instructions Additional Instructions: you had a covid test done today, you will be contacted with the results your pregancy test was negative, follow up with your obgyn provider this week if you feel more ill, have difficulty breathing or severe abdominal pain return to the emergency department Stand Alone Forms: PENDING COVID-19 TESTING Medical Decision Making 26 yo female comes in with primary complaint of feeling as though she has covid, has body aches, runny noseand dry cough, no dyspnea or vomit, no severe headaches and states she was exposed at work recently to someone with covid. She is in no distress on exam, normal oxygenation, speaking clearly, clear lung sounds. suspect viral syndrome and will send covid test, do not feel she requires cxr given well appearance and normal oxygenation. She also notes she gets intermittent heavy periods and has one now. Denies any severe abdominal pain or fevers, or vaginal discharge other than blood. She has no abdominal tenderness on exam. Will check urine but she is not pale and not significantly tachycardic. Discussed with pt and she declines pelvic at this time which I feel is reasonable, if negative will have her f/u with her obgyn Differential Diagnosis Differential Diagnosis: covid, dysfunctional bleeding HPI General Mode of arrival: ambulatory . Date/Time Provider Initiated Documentation: 03/14/21 06:56 . Limitations to Documentation: no limitations . Information obtained by: patient . History of Present Illness 26 year old F presents to the emergency department with the chief complaint of concern for covid, described as moderate, Patient started experiencing this day(s) (1) and it has been constant. No relieving factors improve symptom(s), No exacerbating factors reported . Patient did receive the following treatments prior to arrival, none Related Data Home Medications Medication Instructions Recorded Confirmed ondansetron HCl [Zofran] 4 mg PO Q8H PRN #10 tab 05/23/20 03/14/21 Previous Rx's Medication Instructions Recorded ondansetron HCl [Zofran] 4 mg PO Q8H PRN #10 tab 05/23/20 Allergies Allergy/AdvReac Type Severity Reaction Status Date / Time aspirin AdvReac Intermediate Nausea Unverified 03/14/21 07:06 General Stated Complaint: GenMedical SANTHOSH: 3 Review of Systems All systems reviewed & are unremarkable except as noted in HPI and below Constitutional Constitutional: Denies chills, Denies fever(s) and Denies weakness Cardiovascular Cardiovascular: Denies chest pain and Denies dyspnea Respiratory Respiratory: Denies cough and Denies dyspnea Gastrointestinal Gastrointestinal: Denies abdominal pain, Denies nausea and Denies vomiting Musculoskeletal Musculoskeletal: Denies joint swelling Neurologic Neurologic: Denies weakness PFSH All Active Problems (Updated 03/14/21 @ 07:28 by Chris Kendall MD) Conjunctivitis (Acute) Swelling of left eyelid (Acute) Dental infection (Acute) Exposure to COVID-19 virus (Acute) Vaginal bleeding (Acute) Contraceptive management (Acute) 03/2014 Nexplanon 07/2016 Nexplanon removed. OCPs started. 09/2016 Noncompliant with OCPs. Mirena IUD inserted. 05/2017 Mirena removed, Ortho Evra patch initiated Abnormal weight loss (Acute 12/16/11) 04/17 nutrition consult and lab eval. Anxiety (Acute 01/14/13) BV (bacterial vaginosis) (Acute 03/20/17) Breakthrough bleeding on Nexplanon (Acute 03/16/15) Chlamydia (Acute 04/15/14) 05/2014 neg LEANNE. 06/04/15 New infection. Rx with Azithromycin 03/2016 ? new infection vs partner never treated. Rx with Azithromycin for both pt and her partner. 04/28/16 LEANNE - no GC/CT. Pt has been counseled regarding condoms. Constipation (Acute 01/03/12) Dental caries (Acute 12/16/11) Depression (Acute 05/02/14) Eczema (Acute 06/29/12) Excessive and frequent menstruation (Acute 01/03/12) Headache (Acute 12/16/11) IUD (intrauterine device) in place (Acute 09/08/16) Idiopathic scoliosis (Acute 12/16/11) Learning difficulty (Acute 12/16/11) Learning difficulty (Acute 12/16/11) thumb wound (Acute) Medical History BV (bacterial vaginosis) 11/2016. Rx with Metronidazole 03/20/17. Rx with Metronidazole. Chlamydia infection 04/17/14. Treated with neg LEANNE. 06/04/15 New infection. Rx with Azithromycin 03/29/2016 Rx with Azithromycin. LEANNE neg 05/02/16. Contraceptive management 03/2014 Nexplanon 07/2016 Nexplanon removed. OCPs started. 09/2016 Noncompliant with OCPs. Mirena IUD inserted. 05/2017 Mirena removed, Ortho Evra patch initiated Dysmenorrhea in adolescent improved with hormonal contraception. Frequent headaches ? menstrual related. UTI (urinary tract infection) 03/2017 EColi. Surgical History Repair of umbilical hernia (~2010) Family History Mother No problems noted. Other Graves disease Social History Smoking/Tobacco Use Status: Never Smoking risk assessment performed?: Yes Alcohol Intake: never Drug use: Daily Substance use type: marijuana Housing: house Number of Children: 0 current occupation: [employer] Sexually active: Yes Seatbelt use: always Do you feel safe at home: Yes Do you feel safe in your relationship?: Yes Female Reproductive History Menstrual control method: patch Exam Const General: no acute distress Orientation: alert HENMT Head: normal to inspection Ears: external ears normal General nose exam: external nose normal Mouth: moist mucous membranes Eyes General: appearance normal, both eyes and all related structures Neck Neck: normal visual inspection Resp Effort & Inspection: normal respiratory effort and able to speak in complete sentences Cardio Rate: regular rate GI Palpation: soft and nontender Skin General skin exam: no rashes or lesions noted Neuro General: patient alert and patient oriented x3 Extrem General: normal to inspection Psych Mental Status: mental status grossly normal Course Vital Signs Vital signs: Vital Signs Temperature 36.8 C 03/14/21 07:02 Pulse 104 H 03/14/21 07:02 Respiratory Rate 14 03/14/21 07:02 Blood Pressure 119/76 03/14/21 07:02 Pulse Oximetry 99 03/14/21 07:02 Temperature 36.8 C 03/14/21 07:02 Temperature Source Skin 03/14/21 07:02 Pulse 104 H 03/14/21 07:02 Respiratory Rate 16 03/14/21 07:07 Respiratory Effort 03/14/21 07:07 Respiratory Depth Normal 03/14/21 07:07 Respiratory Pattern Normal 03/14/21 07:07 Blood Pressure 119/76 03/14/21 07:02 Pulse Oximetry 99 03/14/21 07:02 Oxygen Delivery Method Room Air 03/14/21 07:02 Oxygen Flow Rate 0 03/14/21 07:02 Pain Level 4 03/14/21 07:02
[2021-03-14 07:57] LABS: Bilirubin Negative (Negative); Blood Moderate (Negative); Clarity Clear (Clear); Glucose Negative (Negative); Ketones 15 mg/dL (Negative); Leukocyte Esterase Negative (Negative); Nitrite Negative (Negative); Urobilinogen 0.2 EU/dL (Up TO 0.2); pH 8.5 (5-8)
[2021-03-14 08:39] LABS: Bacteria Moderate HPF (Negative); Crystals Negative HPF (Negative); Epithelial Cells Moderate HPF (Negative); RBC 0-2 HPF (0-2); WBC Negative HPF (0-5)
[2021-03-14 08:40] LABS: C & S Indicated? No/Sq. Contamination; Mucus Heavy (Negative)
[2021-03-15 17:17] LABS: COVID-19 RT-PCR UVMMC Result Positive (Negative)
--- NOTE | 2021-03-15 19:14 | W.ED.FU ---
03/15/21 1710 patient contacted to go over COVID-positive results. Informed patient about CDC recommended quarantine and guidelines. After full discussion of COVID guidelines and quarantine, reasons that patient should be reassessed, and answering all the patient's questions she stated no further needs questions or concerns at this time.
== END 2021-03-14 07:48 | disposition home or self-care (01) ==
PROVIDERS: Emergency Provider Emergency Medicine; PCP Internal Medicine
DX: U07.1 COVID-19 (principal); N93.9 Abnormal uterine and vaginal bleeding, unspecified
CPT/HCPCS: 81025; 99282; U0003; 81003; 81015; 99283

== ENCOUNTER 2021-04-04 10:48 | Emergency (ER) | payer BC, SELFPAY ==
[2021-04-04 10:54] VITALS: BP 120/82; PULSE 107; RESP 16; TEMP 36.8; O2SAT 98
--- NOTE | 2021-04-04 11:07 | ED.GENADUL_ITS ---
Discharge Plan Disposition Patient Disposition: HOME Condition: Improving Discharge Details Clinical Impression: Urinary tract infection Primary Care Provider: Lucy Waters ED Provider: Juan Enriquez Home Meds and New Rx's Prescriptions: New cephalexin 500 mg capsule 500 mg PO TID 7 Days Qty: 21 RF: 0 Continued ondansetron HCl [Zofran] 4 mg tablet 4 mg PO Q8H PRNQty: 10 RF: 0 No Action acetaminophen 650 mg Tablet 1,300 mg PO QID PRNRF: 0 Discharge Instructions Instructions: Urinary Tract Infection in Women (ED) Additional Instructions: May continue urostat. Take antibiotics as prescribed. Next dose this evening. Home to rest today. Small, frequent sips of fluids to maintain hydration. Return to the emergency department for any acute concerns. Medical Decision Making 26-year-old female presents with hours of progressive suprapubic cramping, burning, urgency and frequency of urination with associated hematuria this morning. Right flank discomfort and subjective fever at home. Patient has a slight tachycardia with a pulse of 106. She is tender overlying the right flank in the suprapubic region. Most consistent with acute cystitis and probable ascending UTI. IBS established, screening labs obtained, patient given fluids, parenteral analgesia, antibiotic. CBC shows elevated white blood cell count of 13, remainder of CBC and chemistries reassuring. Urinalysis shows a predominance of bacteria and white blood cells. Consistent with acute urinary tract infection. Patient improving with fluids. I will place her on a course of Keflex after receiving ceftriaxone in the emergency department. HPI General Mode of arrival: ambulatory . Date/Time Provider Initiated Documentation: 04/04/21 10:50 . Limitations to Documentation: no limitations . Information obtained by: patient . History of Present Illness 26 year old F presents to the emergency department with the chief complaint of Urinary urgency and hesitancy with bloody urine today, described as moderate and similar to prior episodes, and is localized to the abdomen and pelvis. Patient reports no radiation. Patient started experiencing this hour(s) and it has been intermittent. No relieving factors improve symptom(s), Patient notes loss of appetite; denies fever/chills. Patient did receive the following treatments prior to arrival, other (Urostat) Related Data Home Medications Medication Instructions Recorded Confirmed ondansetron HCl [Zofran] 4 mg PO Q8H PRN #10 tab 05/23/20 04/04/21 acetaminophen 1,300 mg PO QID PRN 04/04/21 04/04/21 cephalexin 500 mg PO TID 7 Days #21 cap 04/04/21 Previous Rx's Medication Instructions Recorded ondansetron HCl [Zofran] 4 mg PO Q8H PRN #10 tab 05/23/20 cephalexin 500 mg PO TID 7 Days #21 cap 04/04/21 Allergies Allergy/AdvReac Type Severity Reaction Status Date / Time aspirin AdvReac Intermediate Nausea Unverified 04/04/21 11:02 General Stated Complaint: FlankPain SANTHOSH: 3 Review of Systems Narrative: Otherwise healthy young female. Denies being . 6 systems reviewed and otherwise negative PFSH All Active Problems (Updated 04/04/21 @ 11:56 by Juan Enriquez MD) Conjunctivitis (Acute) Swelling of left eyelid (Acute) Dental infection (Acute) Exposure to COVID-19 virus (Acute) Vaginal bleeding (Acute) Urinary tract infection (Acute) Contraceptive management (Acute) 03/2014 Nexplanon 07/2016 Nexplanon removed. OCPs started. 09/2016 Noncompliant with OCPs. Mirena IUD inserted. 05/2017 Mirena removed, Ortho Evra patch initiated Abnormal weight loss (Acute 12/16/11) 04/17 nutrition consult and lab eval. Anxiety (Acute 01/14/13) BV (bacterial vaginosis) (Acute 03/20/17) Breakthrough bleeding on Nexplanon (Acute 03/16/15) Chlamydia (Acute 04/15/14) 05/2014 neg LEANNE. 06/04/15 New infection. Rx with Azithromycin 03/2016 ? new infection vs partner never treated. Rx with Azithromycin for both pt and her partner. 04/28/16 LEANNE - no GC/CT. Pt has been counseled regarding condoms. Constipation (Acute 01/03/12) Dental caries (Acute 12/16/11) Depression (Acute 05/02/14) Eczema (Acute 06/29/12) Excessive and frequent menstruation (Acute 01/03/12) Headache (Acute 12/16/11) IUD (intrauterine device) in place (Acute 09/08/16) Idiopathic scoliosis (Acute 12/16/11) Learning difficulty (Acute 12/16/11) Learning difficulty (Acute 12/16/11) thumb wound (Acute) Medical History BV (bacterial vaginosis) 11/2016. Rx with Metronidazole 03/20/17. Rx with Metronidazole. Chlamydia infection 04/17/14. Treated with neg LEANNE. 06/04/15 New infection. Rx with Azithromycin 03/29/2016 Rx with Azithromycin. LEANNE neg 05/02/16. Dysmenorrhea in adolescent improved with hormonal contraception. Frequent headaches ? menstrual related. Surgical History Repair of umbilical hernia (~2010) Family History Mother No problems noted. Other Graves disease Social History Smoking/Tobacco Use Status: Never Smoking risk assessment performed?: Yes Alcohol Intake: never Drug use: Daily Substance use type: marijuana Housing: house Number of Children: 0 current occupation: [employer] Sexually active: Yes Seatbelt use: always Do you feel safe at home: Yes Do you feel safe in your relationship?: Yes Female Reproductive History Menstrual control method: patch Exam Narrative Exam Narrative: GEN: awake, alert, oriented 3. Pleasant, well groomed, interactive. HEAD: Normocephalic, atraumatic ENT: Mucous membranes moist, oropharynx unremarkable, External ear exam unremarkable EYES: PERRL, EOMI NECK: Full ROM, no PROSPER, no menigismus CHEST/RESP: Nontender, clear to auscultation bilateral, no wheeze/rhonchi/rales CARDIOVASCULAR: RRR, no murmur, rub mitchel. 2+ Rad pulse bilateral ABDOMEN: Soft, suprapubic tenderness without rebound or guarding, no mass. +Bowel sounds. Right flank tender to percussion. EXT: Full ROM, no edema, no rash Neuro: Grossly normal neurologic exam, conversant, interactive. Psych: Speech fluent, thoughts congruent, affect normal Course Vital Signs Vital signs: Vital Signs Temperature 36.8 C 04/04/21 10:54 Pulse 107 H 04/04/21 10:54 Respiratory Rate 16 04/04/21 10:54 Blood Pressure 120/82 04/04/21 10:54 Pulse Oximetry 98 04/04/21 10:54 Temperature 36.8 C 04/04/21 10:54 Temperature Source Temporal Artery Scan 04/04/21 10:54 Pulse 107 H 04/04/21 10:54 Respiratory Rate 16 04/04/21 10:54 Respiratory Effort Non-Labored 04/04/21 11:00 Blood Pressure 120/82 04/04/21 10:54 Blood Pressure Position Sitting 04/04/21 10:54 Pulse Oximetry 98 04/04/21 10:54 Oxygen Delivery Method Room Air 04/04/21 10:54 Oxygen Flow Rate 0 04/04/21 10:54 Pain Level 6 04/04/21 11:01 Lab/Test Results Lab/Test Results: POC- Test(urine) Negative
[2021-04-04 11:23] LABS: Clarity Cloudy (Clear)
[2021-04-04 11:26] LABS: Epithelial Cells Few HPF (Negative); Other Cells Rare Renal (Negative); WBC 20-50 HPF (0-5)
[2021-04-04 11:27] LABS: Bacteria Moderate HPF (Negative); C & S Indicated? Yes; Casts 0-2 Coarse Granular LPF (Negative); Crystals Moderate Amorphous HPF (Negative); Mucus Trace (Negative)
[2021-04-04 11:29] LABS: Abs Immature Grans 0.04 10^3/uL (0.0-0.06); Absolute Basophil Count 0.07 10^3/uL (0.0-0.2); Absolute Eosinophil Count 0.13 10^3/uL (0.0-0.7); Absolute Lymphocyte Count 1.57 10^3/uL (1.2-3.4); Basophils % 0.5; HCT 40.1 % (36.0-46.0); HGB 13.4 g/dL (11.2-15.7); Immature Grans % 0.3; Lymphocytes % 11.8; MCH 31.2 pg (27.0-33.0); MCHC 33.4 % (32.0-36.0); MCV 93.5 fL (80-95); MPV 10.8 fL (8.0-11.0); Monocytes % 6.5; Neutrophils % 79.9; Nucleated RBC 0 %; Platelet Count 291 10^3/uL (130-400); RBC 4.29 10^6/uL (3.93-5.22); RDW 11.8 % (11.7-14.6); RDW-SD 39.7 fL; WBC 13.29 10^3/uL (4.4-10.8)
[2021-04-04] MEDS: cefTRIAXone 1 GM/50 ML BAG IVPB (11:30)
[2021-04-04] MEDS: Normal Saline 1,000 ML 1000 ML IV (11:30)
[2021-04-04 11:34] LABS: Absolute Monocyte Count 0.86 10^3/uL (0.1-0.8); Absolute Neutrophil Count 10.62 10^3/uL (1.2-6.7)
[2021-04-04 11:44] LABS: Anion Gap 8.4 mmol/L (3-11); BUN 7 mg/dL (7-18); CO2 28.6 mmol/L (21.0-32.0); Calcium 9.1 mg/dL (8.5-10.1); Chloride 102 mmol/L (98-107); Glucose 95 mg/dL (74-106); Potassium 3.5 mmol/L (3.5-5.1); Sodium 139 mmol/L (136-145)
[2021-04-04 12:04] VITALS: BP 106/66; PULSE 70; RESP 16; TEMP 36.6; O2SAT 100
== END 2021-04-04 13:01 | disposition home or self-care (01) ==
PROVIDERS: Emergency Provider Emergency Medicine; PCP Internal Medicine
DX: N39.0 Urinary tract infection, site not specified (principal); B96.20 Unspecified Escherichia coli [E. coli] as the cause of diseases classified elsewhere; R00.0 Tachycardia, unspecified
CPT/HCPCS: 36415; 80048; 81025; 87077; 96361; 96365; 99284; 81003; 81015; 85025; 87086; 87186; 99283; J0696

== ENCOUNTER 2022-03-14 18:16 | Emergency (ER) | payer SELFPAY ==
[2022-03-14 18:46] VITALS: BP 130/88; PULSE 95; RESP 16; TEMP 36.7; O2SAT 99
[2022-03-14 19:02] VITALS: BP 135/89; PULSE 95; RESP 22; TEMP 35.8; O2SAT 99
--- NOTE | 2022-03-14 19:19 | ED.GENADUL_ITS ---
Discharge Plan Disposition Patient Disposition: Home Condition: Stable Discharge Details Clinical Impression: Hives Primary Care Provider: Lucy Waters ED Provider: Dick Aparicio Home Meds and New Rx's Prescriptions: New prednisone 20 mg tablet 40 mg PO DAILY Qty: 10 0RF Continued ondansetron HCl [Zofran] 4 mg tablet 4 mg PO Q8H PRNQty: 10 0RF Discontinued acetaminophen 650 mg Tablet 1,300 mg PO QID PRN Discharge Instructions Instructions: Urticaria (ED) Additional Instructions: If you develop any new or significant worsening of symptoms feel free to return the emergency department for reassessment. Otherwise feel free to follow-up with your primary care provider or CERTIFIED MASTER SAFE TECHNICIAN for reassessment especially if you are not improving in the next 48 hours. Referrals: Lucy Waters [Primary Care Provider] - Discharge Data Discharge Date/Time-TO BE ENTERED AT DEPARTURE: 03/14/22 19:43 Medical Decision Making Patient presenting to the emergency department for chief complaint of rash. She states that this started about 5 days ago and has been increasing since. She is approximately 10 days and denies all other symptoms. She does state that she was around animals that were rubbing up against her legs the day before the rash appeared. Denies any difficulty breathing swallowing abdominal pain and states she is healing well from the . Physical exam shows hives more on the lower extremities around the ankles but somewhat present on the upper thighs and upper extremities. Exam is otherwise unremarkable. Patient in no signs of anaphylactic shock no fever no chills. Patient states she is not breast-feeding. Given well differentiated hives I doubt help syndrome and suspect more of hives secondary to animal exposure. We will treat patient symptomatically with prednisone and antihistamines. Discussed with patient close monitoring return and follow-up precautions. After discussion of diagnosis and plan of care patient has no further needs, questions, or concerns and states clear understanding to return to the emergency department for any worsening symptoms. This documentation was generated using [employer] system, please disregard any oddities of phrase or misspellings. HPI General Mode of arrival: ambulatory . Date/Time Provider Initiated Documentation: 03/14/22 18:56 . Limitations to Documentation: no limitations . Information obtained by: patient and RN notes reviewed . History of Present Illness 27 year old F presents to the emergency department with the chief complaint of itchy rash, described as moderate, Quality is described as other (itchy ), Patient started experiencing this week(s) (5) and it has been constant. No relieving factors improve symptom(s), No exacerbating factors reported . Patient notes no other symptoms.. Patient did receive the following treatments prior to arrival, other (Calamine lotion) Related Data Home Medications Medication Instructions Recorded Confirmed ondansetron HCl 4 mg tablet 4 mg PO Q8H PRN #10 tabs 21 04/04/21 (Zofran) prednisone 20 mg tablet 40 mg PO DAILY #10 tabs 03/14/22 Previous Rx's Medication Instructions Recorded ondansetron HCl 4 mg tablet 4 mg PO Q8H PRN #10 tabs 05/23/20 (Zofran) prednisone 20 mg tablet 40 mg PO DAILY #10 tabs 03/14/22 Allergies Allergy/AdvReac Type Severity Reaction Status Date / Time aspirin AdvReac Intermediate Nausea Unverified 04/04/21 11:02 General Stated Complaint: RashLesion SANTHOSH: 4 Review of Systems Constitutional Constitutional: Denies chills and Denies fever(s) Eyes Eyes: Denies irritation and Denies itchy eyes ENT Ears, Nose, Mouth, and Throat: Denies lip swelling, Denies sore throat, Denies throat swelling and Denies tongue swelling Cardiovascular Cardiovascular: Denies chest pain and Denies dyspnea Respiratory Respiratory: Denies cough, Denies dyspnea and Denies wheezing Gastrointestinal Gastrointestinal: Denies diarrhea, Denies nausea and Denies vomiting Musculoskeletal Musculoskeletal: Denies joint swelling Integumentary/Breasts Skin/Breast: Reports as per HPI, Reports erythema and Reports rash Hematologic/Lymphatic Hematologic/Lymphatic: Denies easy bruising Allergic/Immunologic Allergic/Immunologic: Reports as per HPI, Reports urticaria, Denies itchy eyes, Denies lip swelling, Denies throat swelling, Denies tongue swelling and Denies wheezing PFSH All Active Problems (Updated 03/14/22 @ 19:32 by Dick Aparicio NP) Conjunctivitis (Acute) Swelling of left eyelid (Acute) Dental infection (Acute) Exposure to COVID-19 virus (Acute) Hives (Acute) Contraceptive management (Acute) 03/2014 Nexplanon 07/2016 Nexplanon removed. OCPs started. 09/2016 Noncompliant with OCPs. Mirena IUD inserted. 05/2017 Mirena removed, Ortho Evra patch initiated Abnormal weight loss (Acute 12/16/11) 04/17 nutrition consult and lab eval. Anxiety (Acute 01/14/13) BV (bacterial vaginosis) (Acute 03/20/17) Breakthrough bleeding on Nexplanon (Acute 03/16/15) Chlamydia (Acute 04/15/14) 05/2014 neg LEANNE. 06/04/15 New infection. Rx with Azithromycin 03/2016 ? new infection vs partner never treated. Rx with Azithromycin for both pt and her partner. 04/28/16 LEANNE - no GC/CT. Pt has been counseled regarding condoms. Constipation (Acute 01/03/12) Dental caries (Acute 12/16/11) Depression (Acute 05/02/14) Eczema (Acute 06/29/12) Excessive and frequent menstruation (Acute 01/03/12) Headache (Acute 12/16/11) IUD (intrauterine device) in place (Acute 09/08/16) Idiopathic scoliosis (Acute 12/16/11) Learning difficulty (Acute 12/16/11) Learning difficulty (Acute 12/16/11) thumb wound (Acute) Medical History BV (bacterial vaginosis) 11/2016. Rx with Metronidazole 03/20/17. Rx with Metronidazole. Chlamydia infection 04/17/14. Treated with neg LEANNE. 06/04/15 New infection. Rx with Azithromycin 03/29/2016 Rx with Azithromycin. LEANNE neg 05/02/16. Dysmenorrhea in adolescent improved with hormonal contraception. Frequent headaches ? menstrual related. Surgical History Repair of umbilical hernia (~2010) Family History Mother No problems noted. Other Graves disease Social History Smoking/Tobacco Use Status: Never Smoking risk assessment performed?: Yes Alcohol Intake: never Drug use: Daily Substance use type: marijuana Housing: house Number of Children: 0 current occupation: [employer] Sexually active: Yes Seatbelt use: always Do you feel safe at home: Yes Do you feel safe in your relationship?: Yes Female Reproductive History Menstrual control method: patch Exam Const General: cooperative, no acute distress and not ill appearing Orientation: alert, awake and oriented x3 HENMT Mouth: lip normal, tongue normal, oropharynx normal and moist mucous membranes Throat: posterior oropharynx normal Resp Effort & Inspection: normal respiratory effort, able to speak in complete sentences and no respiratory distress Auscultation: clear to auscultation bilaterally Cardio Rate: regular rate Rhythm: regular rhythm Heart Sounds: S1 normal and S2 normal Skin Rashes: rashes noted (Diffuse hives more on the lower extremities) Neuro General: patient alert, patient awake, patient oriented x3, moves all extremities and no focal motor deficits Sensory Exam: no sensory deficits noted Course Vital Signs Vital signs: Vital Signs Temperature 36.7 C 03/14/22 18:46 Pulse 95 H 03/14/22 18:46 Respiratory Rate 16 03/14/22 18:46 Blood Pressure 130/88 03/14/22 18:46 Pulse Oximetry 99 03/14/22 18:46 Temperature 35.8 C L 03/14/22 19:02 Temperature Source Tympanic 03/14/22 19:02 Pulse 95 H 03/14/22 19:02 Respiratory Rate 22 03/14/22 19:02 Respiratory Effort 03/14/22 19:06 Blood Pressure 135/89 03/14/22 19:02 Blood Pressure Position Sitting 03/14/22 19:02 Pulse Oximetry 99 03/14/22 19:02 Oxygen Delivery Method Room Air 03/14/22 19:02 Oxygen Flow Rate 0 03/14/22 19:02 End Tidal Co2 3 03/14/22 18:46
[2022-03-14] MEDS: Cetirizine 10 MG TAB PO (19:36)
[2022-03-14] MEDS: Famotidine 20 MG TAB 40 MG PO (19:36)
[2022-03-14] MEDS: predniSONE 20 MG TAB 60 MG PO (19:37)
[2022-03-14 19:39] VITALS: BP 132/77; PULSE 85; RESP 16; TEMP 35.7; O2SAT 98
== END 2022-03-14 19:43 | disposition home or self-care (01) ==
PROVIDERS: Emergency Provider Nurse Practitioner Family; PCP Internal Medicine
DX: L50.8 Other urticaria (principal)
CPT/HCPCS: 99283; 99284; J7512

== ENCOUNTER 2022-11-03 18:00 | Emergency (ER) | payer BC, SELFPAY ==
[2022-11-03 18:08] VITALS: BP 124/97; PULSE 110; RESP 20; TEMP 36.8; O2SAT 99
--- NOTE | 2022-11-03 18:17 | ED.GENADUL_ITS ---
Discharge Plan Disposition Patient Disposition: Home Condition: Stable Discharge Details Chief Complaint: Sorethroat Clinical Impression: Pharyngitis Primary Care Provider: Lucy Waters ED Provider: Jaden Ramsay Home Meds and New Rx's Prescriptions: No Action ondansetron HCl [Zofran] 4 mg tablet 4 mg PO Q8H PRNQty: 10 0RF prednisone 20 mg tablet 40 mg PO DAILY Qty: 10 0RF Discharge Instructions Instructions: Pharyngitis (ED) Medical Decision Making 27-year-old female presents with sore throat the past couple of days history of strep throat, erythematous oropharynx without exudate, midline uvula, tolerating secretions no stridor no signs of deep space infection of head or neck. [id number] swab has been ordered. Dexamethasone ordered. Further treatment pending strep swab HPI General Date/Time Provider Initiated Documentation: 11/03/22 18:03 . HPI Narrative: 27-year-old female presents with sore throat over the last couple of days, history of strep throat in the past, painful swallowing. Related Data Home Medications Medication Instructions Recorded Confirmed ondansetron HCl 4 mg tablet 4 mg PO Q8H PRN #10 tabs 05/23/21 04/04/21 (Zofran) prednisone 20 mg tablet 40 mg PO DAILY #10 tabs 03/14/22 Previous Rx's Medication Instructions Recorded ondansetron HCl 4 mg tablet 4 mg PO Q8H PRN #10 tabs 05/23/20 (Zofran) prednisone 20 mg tablet 40 mg PO DAILY #10 tabs 03/14/22 Allergies Allergy/AdvReac Type Severity Reaction Status Date / Time aspirin AdvReac Intermediate Nausea Unverified 04/04/21 11:02 General Stated Complaint: Sorethroat SANTHOSH: 4 Review of Systems Narrative: Review of Systems Constitutional: negative Eyes: negative ENT: Sore throat Cardiovascular: negative Respiratory: negative Gastrointestinal: negative : negative Musculoskeletal: negative Skin: negative Neurologic: negative Psych: negative PFSH All Active Problems (Updated 11/03/22 @ 18:22 by Jaden Ramsay MD) Conjunctivitis (Acute) Swelling of left eyelid (Acute) Dental infection (Acute) Exposure to COVID-19 virus (Acute) Pharyngitis (Acute) Contraceptive management (Acute) 03/2014 Nexplanon 07/2016 Nexplanon removed. OCPs started. 09/2016 Noncompliant with OCPs. Mirena IUD inserted. 05/2017 Mirena removed, Ortho Evra patch initiated Abnormal weight loss (Acute 12/16/11) 04/17 nutrition consult and lab eval. Anxiety (Acute 01/14/13) BV (bacterial vaginosis) (Acute 03/20/17) Breakthrough bleeding on Nexplanon (Acute 03/16/15) Chlamydia (Acute 04/15/14) 05/2014 neg LEANNE. 06/04/15 New infection. Rx with Azithromycin 03/2016 ? new infection vs partner never treated. Rx with Azithromycin for both pt and her partner. 04/28/16 LEANNE - no GC/CT. Pt has been counseled regarding condoms. Constipation (Acute 01/03/12) Dental caries (Acute 12/16/11) Depression (Acute 05/02/14) Eczema (Acute 06/29/12) Excessive and frequent menstruation (Acute 01/03/12) Headache (Acute 12/16/11) IUD (intrauterine device) in place (Acute 09/08/16) Idiopathic scoliosis (Acute 12/16/11) Learning difficulty (Acute 12/16/11) Learning difficulty (Acute 12/16/11) thumb wound (Acute) Medical History BV (bacterial vaginosis) 11/2016. Rx with Metronidazole 03/20/17. Rx with Metronidazole. Chlamydia infection 04/17/14. Treated with neg LEANNE. 06/04/15 New infection. Rx with Azithromycin 03/29/2016 Rx with Azithromycin. LEANNE neg 05/02/16. Dysmenorrhea in adolescent improved with hormonal contraception. Frequent headaches ? menstrual related. Surgical History Repair of umbilical hernia (~2010) Family History Mother No problems noted. Other Graves disease Social History Smoking/Tobacco Use Status: Never Smoking risk assessment performed?: Yes Alcohol Intake: never Drug use: Daily Substance use type: marijuana Housing: house Number of Children: 0 current occupation: [employer] Sexually active: Yes Seatbelt use: always Do you feel safe at home: Yes Do you feel safe in your relationship?: Yes Female Reproductive History Menstrual control method: patch Exam Narrative Exam Narrative: Physical Examination General: alert, awake, cooperative, resting comfortably, no acute distress HEENT: normocephalic, atraumatic; PERRL, EOM intact, conjunctiva normal; no nasal discharge; moist mucous membranes, erythematous oropharynx without exudate, tolerating secretions, midline uvula Neck: supple, trachea midline; full ROM Chest: normal to inspection Respiratory: normal respiratory effort, speaking in full sentences Skin: no lesions, rashes or trauma appreciated Neuro: AAOx3, normal speech, moving all extremities Psych: Appropriate mood and affect Course Vital Signs Vital signs: Vital Signs Temperature 36.8 C 11/03/22 18:08 Pulse 110 H 11/03/22 18:08 Respiratory Rate 20 11/03/22 18:08 Blood Pressure 124/97 H 11/03/22 18:08 Pulse Oximetry 99 11/03/22 18:08 Temperature 36.8 C 11/03/22 18:08 Pulse 110 H 11/03/22 18:08 Respiratory Rate 20 11/03/22 18:08 Blood Pressure 124/97 H 11/03/22 18:08 Blood Pressure Position Sitting 11/03/22 18:08 Pulse Oximetry 99 11/03/22 18:08 Oxygen Delivery Method Room Air 11/03/22 18:08 Oxygen Flow Rate 0 11/03/22 18:08
[2022-11-03] MEDS: Dexamethasone 10 MG/ML VIAL PO (18:32)
== END 2022-11-03 18:42 | disposition home or self-care (01) ==
LOC: ER 19:05
PROVIDERS: Emergency Provider Emergency Medicine; PCP Internal Medicine
DX: J02.9 Acute pharyngitis, unspecified (principal)
CPT/HCPCS: 87880; 99282; 87081; 99283; J1100

== ENCOUNTER 2022-11-06 02:17 | Emergency (ER) | payer BC, SELFPAY ==
[2022-11-06 02:20] VITALS: BP 123/83; PULSE 83; RESP 98; TEMP 37.3; O2SAT 98
--- NOTE | 2022-11-06 02:27 | ED.GENADUL_ITS ---
Discharge Plan Disposition Patient Disposition: Home Condition: Stable Discharge Details Chief Complaint: RashLesion Clinical Impression: Hand, foot and mouth disease Primary Care Provider: Lucy Waters ED Provider: Jaden Ramsay Home Meds and New Rx's Prescriptions: No Action ondansetron HCl [Zofran] 4 mg tablet 4 mg PO Q8H PRNQty: 10 0RF prednisone 20 mg tablet 40 mg PO DAILY Qty: 10 0RF Discharge Instructions Instructions: Viral Syndrome (ED) Medical Decision Making 27-year-old female presents with small papules and vesicles to palms and soles of feet, resolving pharyngitis, recent exposure to daughter who is 8 months old who contracted tgzd-hlcq-ygq-mouth from daycare. Likely xrxe-ihrx-xxe-mouth disease. Home care instructions and return precautions given. Patient is hemodynamically stable alert oriented nontoxic tolerating secretions HPI General Date/Time Provider Initiated Documentation: 11/06/22 02:18 . HPI Narrative: 27-year-old female recent visit for pharyngitis, presents with blisters to hands and feet, 8-month-old daughter recently contracted zbth-tujp-gtm-mouth from daycare. Related Data Home Medications Medication Instructions Recorded Confirmed ondansetron HCl 4 mg tablet 4 mg PO Q8H PRN #10 tabs 21 11/06/22 (Zofran) prednisone 20 mg tablet 40 mg PO DAILY #10 tabs 03/14/22 11/06/22 Previous Rx's Medication Instructions Recorded ondansetron HCl 4 mg tablet 4 mg PO Q8H PRN #10 tabs 05/23/20 (Zofran) prednisone 20 mg tablet 40 mg PO DAILY #10 tabs 03/14/22 Allergies Allergy/AdvReac Type Severity Reaction Status Date / Time aspirin AdvReac Intermediate Nausea Unverified 11/06/22 02:24 General Stated Complaint: RashLesion SANTHOSH: 5 Review of Systems Narrative: Review of Systems Constitutional: negative Eyes: negative ENT: negative Cardiovascular: negative Respiratory: negative Gastrointestinal: negative : negative Musculoskeletal: negative Skin: Rash Neurologic: negative Psych: negative PFSH All Active Problems (Updated 11/06/22 @ 02:30 by Jaden Ramsay MD) Conjunctivitis (Acute) Swelling of left eyelid (Acute) Dental infection (Acute) Exposure to COVID-19 virus (Acute) Pharyngitis (Acute) Hand, foot and mouth disease (Acute) Contraceptive management (Acute) 03/2014 Nexplanon 07/2016 Nexplanon removed. OCPs started. 09/2016 Noncompliant with OCPs. Mirena IUD inserted. 05/2017 Mirena removed, Ortho Evra patch initiated Abnormal weight loss (Acute 12/16/11) 04/17 nutrition consult and lab eval. Anxiety (Acute 01/14/13) BV (bacterial vaginosis) (Acute 03/20/17) Breakthrough bleeding on Nexplanon (Acute 03/16/15) Chlamydia (Acute 04/15/14) 05/2014 neg LEANNE. 06/04/15 New infection. Rx with Azithromycin 03/2016 ? new infection vs partner never treated. Rx with Azithromycin for both pt and her partner. 04/28/16 LEANNE - no GC/CT. Pt has been counseled regarding condoms. Constipation (Acute 01/03/12) Dental caries (Acute 12/16/11) Depression (Acute 05/02/14) Eczema (Acute 06/29/12) Excessive and frequent menstruation (Acute 01/03/12) Headache (Acute 12/16/11) IUD (intrauterine device) in place (Acute 09/08/16) Idiopathic scoliosis (Acute 12/16/11) Learning difficulty (Acute 12/16/11) Learning difficulty (Acute 12/16/11) thumb wound (Acute) Medical History BV (bacterial vaginosis) 11/2016. Rx with Metronidazole 03/20/17. Rx with Metronidazole. Chlamydia infection 04/17/14. Treated with neg LEANNE. 06/04/15 New infection. Rx with Azithromycin 03/29/2016 Rx with Azithromycin. LEANNE neg 05/02/16. Dysmenorrhea in adolescent improved with hormonal contraception. Frequent headaches ? menstrual related. Surgical History Repair of umbilical hernia (~2010) Family History Mother No problems noted. Other Graves disease Social History Smoking/Tobacco Use Status: Never Smoking risk assessment performed?: Yes Alcohol Intake: never Drug use: Daily Substance use type: marijuana Housing: house Number of Children: 0 current occupation: [employer] Sexually active: Yes Seatbelt use: always Do you feel safe at home: Yes Do you feel safe in your relationship?: Yes Female Reproductive History Menstrual control method: patch Exam Narrative Exam Narrative: Physical Examination General: alert, awake, cooperative, resting comfortably, no acute distress HEENT: normocephalic, atraumatic; PERRL, EOM intact, conjunctiva normal; no nasal discharge; moist mucous membranes, oral and pharyngeal mucosa normal, tolerating secretions Neck: supple, trachea midline; full ROM Chest: normal to inspection Respiratory: normal respiratory effort, speaking in full sentences, clear to auscultation, no wheezing, rales or rhonchi Cardiac: regular rate, regular rhythm, S1S2 intact, no murmurs rubs or gallops GI: abdomen soft, non-tender, non-distended; no palpable mass or hepatosplenomegaly Skin: Small papules/vesicles to palms and soles of feet Neuro: AAOx3, normal speech, moving all extremities Psych: Appropriate mood and affect Course Vital Signs Vital signs: Vital Signs Temperature 37.3 C 11/06/22 02:20 Pulse 83 11/06/22 02:20 Respiratory Rate 98 H 11/06/22 02:20 Blood Pressure 123/83 11/06/22 02:20 Pulse Oximetry 98 11/06/22 02:20 Temperature 37.3 C 11/06/22 02:20 Temperature Source Oral 11/06/22 02:20 Pulse 83 11/06/22 02:20 Respiratory Rate 98 H 11/06/22 02:20 Respiratory Effort Normal 11/06/22 02:22 Blood Pressure 123/83 11/06/22 02:20 Pulse Oximetry 98 11/06/22 02:20 Oxygen Delivery Method Room Air 11/06/22 02:20 Oxygen Flow Rate 0 11/06/22 02:20 Pain Level 7 11/06/22 02:20
== END 2022-11-06 02:43 | disposition home or self-care (01) ==
PROVIDERS: Emergency Provider Emergency Medicine; PCP Internal Medicine
DX: B08.4 Enteroviral vesicular stomatitis with exanthem; J02.9 Acute pharyngitis, unspecified
CPT/HCPCS: 99282

== ENCOUNTER 2023-01-12 17:15 | Emergency (ER) | payer BC, SELFPAY ==
[2023-01-12 17:25] VITALS: BP 118/77; PULSE 110; RESP 20; TEMP 36.6; O2SAT 99
[2023-01-12 17:28] VITALS: O2SAT 97
--- OUTSIDE RECORDS SUMMARY | 2023-01-12 17:33 | XMS_ITS | Continuity of Care Document ---
Author Name Unknown Organization [facility] Address [address] [place] [address] Care Team Providers Care Opticianry Teacher Name Role Phone BENNY NIX Primary Care Physician Unavailab le Encounter LT_CO FIN NBR [id number] Date(s): 12/24/21 - 12/24/[address] [address]- [place] Discharge Disposition: Home or Self Care Attending Physician: Dr. Wyatt Desouza MD, FACOG Admitting Physician: Dr. Wyatt Desouza MD, FACOG Referring Physician: Dr. Wyatt Desouza MD, FACOG Allergies, Adverse Reactions, Alerts Substance Reaction Severity Status Aspir 81 stomach pain, nausea, vomiting Severe Active Assessment and Plan Future Appointments Appointment Date:01/21/2022 02:00:00 PM Scheduled Provider: Location:[facility] Appointment Type:OB Follow Up Medications Multi + DHA 0 Refill(s) Start Date: 12/24/21 Status: Ordered Proctosol-HC 2.5% topical cream BID, 1 Unknown, 0 Refill(s) Start Date: 12/24/21 Status: Ordered Problem List Condition Confirmation Course Effective Dates Status H ealt Status Informant Endometriosis Confirmed Active Depression with anxiety Confirmed Active Encounter for prophylactic administration of RhoGAM Confirmed Active Confirmed 05/23/21 Active Rh negative Confirmed Active Scoliosis Confirmed Active Procedures Procedure Date Related Diagnosis Body Site Status Endometriosis 06/03/20 Completed Laparoscopic excision of pel aneta endometriosis 10/16/19 Completed Colonoscopy 1 10/07/19 Completed EGD (esophagogastroduodenosc opy) gastric outlet reduction 10/07/19 Complet ed Laparoscopic excision of pel aneta endometriosis 12/12/18 Completed Umbilical hernia 2011 Complete d 1negative except for hemorrhoids Results Laboratory List Name Date ABO/Rh Echo 12/24/21 Rhogam 12/24/21 Automated Diff 12/24/21 ABSC Echo (Antibody Screen Echo) 2 CBC w/ Diff 12/24/21 Glucose 1Hr 50 gm OB 12/24/21 Most recent to oldest [Reference Range]: 1 WBC [4.8-10.8 K/mcL] 10.0 K/mcL (12/24/21 7:37 AM) RBC [4.20-6.10 Million/mcL] 3.61 Million /mcL *LOW* (12/24/21 7:37 AM) Neutro Auto [42.2-75.2 %] 77.8 % *HI* (12/24/21 7:37 AM) Lymph Auto [20.5-51.1 %] 11.9 % *LOW* (12/24/21 7:37 AM) Day Auto [1.7-9.3 %] 7.2 % (12/24/21 7:37 AM) Basophil Auto [0.0-0.2 %] 0.6 % *HI* (12/24/21 7:37 AM) Baso Absolute [0.0-0.2 K/mcL] 0.1 K/mcL (12/24/21 7:37 AM) MCV [80.0-99.0 fL] 95.6 fL (12/24/21 7:37 AM) MCHC [32.0-36.0 g/dL] 33.6 g/dL (12/24/21 7:37 AM) Lymph Absolute [1.2-3.4 K/mcL] 1.2 K/mcL (12/24/21 7:37 AM) Hct [37.0-52.0 %] 34.5 % *LOW* (12/24/21 7:37 AM) Day Absolute [0.1-0.6 K/mcL] 0.7 K/mcL *HI* (12/24/21 7:37 AM) MCH [27.0-31.0 pg] 32.1 pg *HI* (12/24/21 7:37 AM) Neutro Absolute [1.4-6.5 K/mcL] 7.7 K/mc L *HI* (12/24/21 7:37 AM) Hgb [12.0-18.0 g/dL] 11.6 g/dL *LOW* (12/24/21 7:37 AM) MPV [7.4-10.4 fL] 10.2 fL (12/24/21 7:37 AM) Platelets [130-400 K/mcL] 237 K/mcL (12/24/21 7:37 AM) Eos Absolute [0.0-0.2 K/mcL] 0.1 K/mcL (12/24/21 7:37 AM) RDW-CV [11.5-14.5 %] 12.4 % (12/24/21 7:37 AM) Imm Gran Absolute 0.18 *NA* (12/24/21 7:37 AM) Imm Gran Auto [0.0-0.5 %] 1.8 % *HI* (12/24/21 7:37 AM) Rhogam Ready Done (12/24/21 8:37 AM) ABO/Rh Echo A NEG *Unknown* (12/24/21 8:37 AM) Gluc 1hr OB 146 *NA* (12/24/21 7:37 AM) Eos, Auto [0.00-3.00 %] 0.70 % (12/24/21 7:37 AM) ABSC Echo Negative ABSC (12/24/21 7:37 AM) Social History Social History Type Response Tobacco Never tobacco user, Marijuana Tobacco Use:. Sex Patient Care team information Personnel Name: BENNY NIX Address: Address: [facility] [address] [place] [place] [address]
--- OUTSIDE RECORDS SUMMARY | 2023-01-12 17:33 | XMS_ITS | Continuity of Care Document ---
Author Name Unknown Organization [facility] Ambulatory Clinics Address [address] [place] [address] Care Team Providers Care Frame Bander Name Role Phone BENNY NIX Primary Care Physician Unavailab le Encounter [facility] NBR [id number] Date(s): 04/14/22 - 04/14/22 [facility] Ambulatory Clinics [address] [place], [place] [address] Encounter Diagnosis Encounter for insertion of subdermal contraceptive(Discharge Diagnosis) - 04/14/22 state(Discharge Diagnosis) - 04/14/22 Discharge Disposition: Home or Self Care Attending Physician: Amelie Clements APRN Allergies, Adverse Reactions, Alerts Substance Reaction Severity Status Aspir 81 stomach pain, nausea, vomiting Severe Active Aspartame Migraine Severe Active Assessment and Plan Future Appointments Future Scheduled Tests Laboratory* Group B Strep ([facility]) 02/16/22 Functional Status 04/14/22 Recent Travel History No recent travel Other exposure to Infectious Disease Non e Medications No Known Medications Problem List Condition Confirmation Course Effective Dates Status H ealth Status Informant Atopic dermatitis Confirmed Active Endometriosis Confirmed Active Depression with anxiety Confirmed Active Encounter for supervision of normal first in third trimester Confirmed Active Encounter for prophylactic administration of RhoGAM Confirmed Active Rh negative Confirmed Active Scoliosis Confirmed Active Procedures Procedure Date Related Diagnosis Body Site Status Section 1 03/05/22 Comple jamal Endometriosis 06/03/20 Completed Laparoscopic excision of pel aneta endometriosis 10/16/19 Completed Colonoscopy 2 10/07/19 Completed EGD (esophagogastroduodenosc opy) gastric outlet reduction 10/07/19 Complet ed Laparoscopic excision of pel aneta endometriosis 12/12/18 Completed Umbilical hernia 2011 Complete d 1auto-populated from documented surgical case 2negative except for hemorrhoids Vital Signs Most recent to oldest [Reference Range]: 1 Blood Pressure [90-140/60-90 mmHg] 116/7 2mmHg (04/14/22 9:00 AM) Weight 82.4 kg (04/14/22 9:00 AM) Weight Measured (lbs) 181.661 lb (04/14/22 9:00 AM) [place] Body Weight Calculated 56.909 kg (04/14/22 9:00 AM) Height 165 cm (04/14/22 9:00 AM) Height/Length Measured (inches) 64.96 in (04/14/22 9:00 AM) BSA Measured 1.94 m2 (04/14/22 9:00 AM) Body Mass Index 30.27 kg/m2 (04/14/22 9:00 AM) Social History Social History Type Response Smoking Status Smoking tobacco use: Never tobacco user; Smoking tobacco use: Marijuana;Never entered on: 02/21/22 Sex summary Document * Event Display: Summary Document Authored Date: [id number] SYLVIA ODONNELL : 1995 Age: 27 Years SYLVIA ODONNELL : [birth year] Summary (Date of Report: 03/23/22) G 1 P 0 (0,0,0,0) Gestation: [place] LMP: 05/23/2021 (from pt. history) YELENA: 03/06/2022 YELENA/EGA Method: Ultrasound EGA: Delivered Gestation info at delivery: Baby A : 39 weeks 6 days SYLVIA ODONNELL : [birth year] Antepartum Note Date: 02/21/22 14:46 (38 weeks) By: Filiberto Preciado 2+ pretibial edema Date: 02/09/22 13:36 (36 weeks) By: Dick Parker MD Some brown show, +edema. SYLVIA ODONNELL : [birth year] Problems (Active Problems Only) (SNOMED CT: 373717292, Onset: 05/23/21) Rh negative (SNOMED CT: 495515141, Onset: --) Scoliosis deformity of spine (SNOMED CT: 326941998, Onset: --) Mixed anxiety and depressive disorder (SNOMED CT: 455438390, Onset: --) Endometriosis (clinical) (SNOMED CT: 000080228, Onset: --) Patient encounter status (SNOMED CT: 590725731, Onset: --) Abnormal glucose tolerance test during - baby not yet delivered (SNOMED CT: 6968603099, Onset: --) Normal (SNOMED CT: 759961625, Onset: --) SYLVIA ODONNELL : [birth year] Risk Factors and Genetic Screening All Results Documented Since 05/23/2021 Risk Factors (Current ) No risk factors have been recorded for this . Ethnic Screening No ethnicities have been recorded. Genetic Disorders Screening No genetic disorders have been recorded. SYLVIA ODONNELL : [birth year] Gestational Age (EGA) and YELENA * Note: EGA calculated as of 03/23/2022 YELENA: 03/06/2022 EGA*: 39 weeks 6 days Type: Authoritative Method Date: 08/11/2021 Method: Ultrasound (08/11/2021) Confirmation: Confirmed Description: -- Comments: -- Entered by: Roseanna Hathaway on 12/23/2021 Other YELENA Calculations for this : Method: Last Menstrual Period Method Date: 05/23/2021 YELENA: 02/27/2022 EGA (At Entry): 30 weeks 5 days Type: Non-Authoritative Comments: -- Entered by: Elizabeth Desouza MD, FACOG on 12/24/2021 Method: Ultrasound Method Date: 11/02/2021 YELENA: 03/09/2022 EGA (At Entry): 21 weeks 6 days Type: Non-Authoritative Comments: -- Entered by: Roseanna Hathaway on 12/23/2021 SYLVIA ODONNELL : [birth year] Measurements Pre- Weight: 63.50 kg 03/02/22 (39 weeks) Recent Weight Measured: 94.600 kg (+) 03/05/22 (39 weeks) Height/Length Measured: 165.100 cm 03/05/22 (39 weeks) Body Mass Index Measured: 34.710 kg/m2 03/05/22 (39 weeks) SYLVIA ODONNELL : [birth year] Exam and Notes Date EGA FunHt PTL S/S Cervix BP Weight Urine Baby cm Dil Eff(%) Sta mmHg lbs kg Gluc Prot FHR Activity Fet Pres 03/05/22 39w6d -- -- 3 -- -- -- *208... -- -- Baby A = 145 *Present pe... -- 03/04/22 39w5d -- -- 0 50% -3 131/77 *208... -- -- Baby A = 135 *Present pe... -- 03/02/22 39w3d -- -- -- -- -- 124/76 *208... Negative Trace -- -- -- 02/21/22 38w1d 39 None 0 50% -3 134/60 *213... Negative Trace Baby A = 145 *Present pe... Vertex 02/16/22 37w3d 40 *Cram.. 0 0% -3 126/80 *214... Negative Negative Baby A = 150bpm *Present pe... Vertex 02/09/22 36w3d 37 -- -- -- -- 132/72 *199... Negative Negative Baby A = 155 *Present pe... -- 02/07/22 36w1d -- -- 0 -- -- 121/78 *186... -- -- Baby A = 140 *Present pe... -- 01/23/22 34w0d -- -- 0 -- -- -- -- -- -- Baby A = 140bpm *Present pe... -- 01/12/22 32w3d 35 *Abdo.. -- -- -- 124/72 *186... Negative Negative Baby A = 155bpm *Present pe... Transverse 01/04/22 31w2d 31 None -- -- -- 120/62 *185... Negative Trace Baby A = 150 *Present pe... -- 12/24/21 29w5d -- -- -- -- -- 112/64 *181... 50 m Negative -- -- -- Next Visit: +1 weeks from 02/21/2022 * Labor Signs & Symptoms 02/16/2022 Cramps 01/12/2022 Abdominal pain * Weight 03/05/2022 208.593(lbs) 94.600(kg) 2022 208.593(lbs) 94.6(kg) 03/02/2022 208.593(lbs) 94.6(kg) 02/21/2022 213.003(lbs) 96.6(kg) 02/16/2022 214.106(lbs) 97.1(kg) 02/09/2022 199.773(lbs) 90.6(kg) 02/07/2022 186.984(lbs) 84.8(kg) 01/12/2022 186.984(lbs) 84.8(kg) 01/04/2022 185.000(lbs) 83.9(kg) 12/24/2021 181.251(lbs) 82.2(kg) * Activity 03/05/2022 Present per patient 2022 Present per patient 2022 Present per patient 02/21/2022 Present per patient 02/16/2022 Present per patient 02/09/2022 Present per patient 02/07/2022 Present per patient 01/23/2022 Present per patient 01/12/2022 Present per patient 01/04/2022 Present per patient SYLVIA ODONNELL : [birth year] Physical Exams Physical Exam Mental Status Level of Consciousness: Alert (03/17/22) Orientation Assessment: Identifies self (03/17/22) Affect/Behavior: Appropriate, Calm, Cooperative (03/05/22) Distress: None (03/04/22) HEENT Mouth: Mouth appears normal (03/07/22) Throat: Throat appears normal (03/07/22) Cardiovascular Cardiovascular Symptoms: Edema (03/07/22) Nail Bed Color: Normal for ethnicity (03/07/22) Capillary Refill: 2 seconds or less (03/07/22) Skin Temperature, Upper Extremities: Warm (03/07/22) Skin Temperature, Lower Extremities: Hot (03/07/22) Heart Rhythm: Regular (03/07/22) Respiratory Respiratory Symptoms: None (03/07/22) Respirations: Unlabored (03/17/22) Respiratory Pattern: Regular (03/07/22) Respiratory Pattern ICU: Normal (03/17/22) Oxygen Therapy: Room air (03/08/22) SpO2: 100 % (03/17/22) Cough: Able to clear secretions (03/07/22) Sputum Consistency:: Thin (03/05/22) All Lobes Breath Sounds: Clear (03/05/22) Gastrointestinal GI Symptoms: None (03/07/22) Abdomen Description: Rounded, Symmetric (03/07/22) Abdomen Palpation: Soft, Tender to palpation (03/07/22) Bowel Sounds All Quadrants: Present (03/04/22) Passing Flatus: Yes (03/06/22) Musculoskeletal Ambulatory Devices: None (03/05/22) Extremities Edema Edema: Lower Extremities (03/05/22) Integumentary Skin Color General: Usual for ethnicity (03/07/22) Skin Color: Normal for ethnicity (03/17/22) Skin Description: [place], Dry (03/17/22) Skin Temperature: Warm (03/17/22) Skin Turgor: Elastic (03/07/22) Skin Moisture General: Dry (03/07/22) Skin Integrity: Intact, no abnormalities (03/05/22) Mucous Membrane Color: [place] (03/07/22) Mucous Membrane Description: Moist, Intact (03/07/22) SYLVIA ODONNELL : [birth year] Blood Types and Anti-D Immune Globulin Blood Type and Screen Mother ABO/Rh: -- Mother Antibody Screen: -- Father of Baby ABO/Rh: -- Father of Baby Antibody Screen: -- Anti-D Immune Globulin Rho(D) Initial Status: -- Rho(D) 28 Week Status: -- Rho(D) Dates Given: -- SYLVIA ODONNELL : [birth year] Tests and Lab Results Results ending with 'TR' have been keyed in by the practice or interpreted manually. Result Date: Estimated weeks post onset will display next to actual result date. Test Result Date Ref Range Imm Gran Absolute (N) 0.18 12/24/21 (29 weeks) Neutro Auto (H) 77.8 % 12/24/21 (29 weeks) (42.2 - 75.2) Eos, Auto 0.70 % 12/24/21 (29 weeks) (0.00 - 3.00) Eos Absolute 0.1 K/mcL 12/24/21 (29 weeks) (0.0 - 0.2) Imm Gran Auto (H) 1.8 % 12/24/21 (29 weeks) (0.0 - 0.5) Merrick Absolute (H) 0.7 K/mcL 12/24/21 (29 weeks) (0.1 - 0.6) Basophil Auto (H) 0.6 % 12/24/21 (29 weeks) (0.0 - 0.2) Neutro Absolute (H) 7.7 K/mcL 12/24/21 (29 weeks) (1.4 - 6.5) Merrick Auto 7.2 % 12/24/21 (29 weeks) (1.7 - 9.3) Lymph Absolute 1.2 K/mcL 12/24/21 (29 weeks) (1.2 - 3.4) Lymph Auto (L) 11.9 % 12/24/21 ( weeks) (20.5 - 51.1) Baso Absolute 0.1 K/mcL 12/24/21 ( weeks) (0.0 - 0.2) RDW-CV 12.4 % 12/24/21 ( weeks) (11.5 - 14.5) Platelets 237 K/mcL 12/24/21 ( weeks) (130 - 400) MPV 10.2 fL 12/24/21 ( weeks) (7.4 - 10.4) Hgb (L) 11.6 g/dL 12/24/21 ( weeks) (12.0 - 18.0) MCH (H) 32.1 pg 12/24/21 ( weeks) (27.0 - 31.0) Hct (L) 34.5 % 12/24/21 ( weeks) (37.0 - 52.0) MCHC 33.6 g/dL 12/24/21 ( weeks) (32.0 - 36.0) MCV 95.6 fL 12/24/21 ( weeks) (80.0 - 99.0) WBC 10.0 K/mcL 12/24/21 ( weeks) (4.8 - 10.8) RBC (L) 3.61 Million/mcL 12/24/21 (29 weeks) (4.20 - 6.10) Protein Urine Dipstick Negative 12/24/21 (29 weeks) Glucose Urine Dipstick 50 mg/dl 12/24/21 (29 weeks) ABSC Echo Negative ABSC 12/24/21 (29 weeks) ABO/Rh Echo (U) A NEG 12/24/21 (29 weeks) Rhogam Ready Done 12/24/21 (29 weeks) Gluc 1hr OB (N) 146 12/24/21 (29 weeks) Gluc Fasting OB (N) 84 12/29/21 (30 weeks) Gluc 2 Hr OB 100gm (N) 78 12/29/21 (30 weeks) Gluc 1 Hr OB 100gm (N) 119 12/29/21 (30 weeks) Gluc 3 Hr OB 100gm (N) 61 12/29/21 (30 weeks) Glucose Urine Dipstick Negative 01/04/22 (31 weeks) Protein Urine Dipstick Trace 01/04/22 (31 weeks) Urine Color Urine Dipstick Yellow 01/04/22 (31 weeks) Urine Appearance Urine Dipstick Slightly cloudy 01/04/22 (31 weeks) Glucose Urine Dipstick Negative 01/12/22 (32 weeks) Protein Urine Dipstick Negative 01/12/22 (32 weeks) Glucose Urine Dipstick Negative 02/09/22 (36 weeks) Protein Urine Dipstick Negative 02/09/22 (36 weeks) Protein Urine Dipstick Negative 02/16/22 (37 weeks) Glucose Urine Dipstick Negative 02/16/22 (37 weeks) Group B Strep ([facility]) Negative 02/16/22 (37 weeks) Negative Urine Appearance Urine Dipstick Slightly cloudy 02/21/22 (38 weeks) Urine Color Urine Dipstick Yellow 02/21/22 (38 weeks) Protein Urine Dipstick Trace 02/21/22 (38 weeks) Glucose Urine Dipstick Negative 02/21/22 (38 weeks) Glucose Urine Dipstick Negative 03/02/22 (39 weeks) Protein Urine Dipstick Trace 03/02/22 (39 weeks) Symptomatic as defined by CDC? (N) Unknown 03/04/22 (39 weeks) Hospitalized due to COVID-19? (N) Unknown 03/04/22 (39 weeks) Group care resident? (N) Unknown 03/04/22 (39 weeks) SARS-CoV-2 (COVID-19) RP-BFire Not Detected 03/04/22 (39 weeks) Not Detected In ICU? (N) No 03/04/22 (39 weeks) Employed in healthcare? (N) Unknown 03/04/22 (39 weeks) status? (N) 03/04/22 (39 weeks) Glucose Level 89 mg/dL 03/05/22 (39 weeks) (74 - 106) Platelets 255 K/mcL 03/05/22 (39 weeks) (130 - 400) MPV (H) 10.9 fL 03/05/22 (39 weeks) (7.4 - 10.4) Hgb 12.3 g/dL 03/05/22 (39 weeks) (12.0 - 18.0) MCH (H) 32.9 pg 03/05/22 (39 weeks) (27.0 - 31.0) Hct (L) 35.3 % 03/05/22 (39 weeks) (37.0 - 52.0) MCHC 34.8 g/dL 03/05/22 (39 weeks) (32.0 - 36.0) MCV 94.4 fL 03/05/22 (39 weeks) (80.0 - 99.0) RBC (L) 3.74 Million/mcL 03/05/22 (39 weeks) (4.20 - 6.10) WBC (H) 14.5 K/mcL 03/05/22 (39 weeks) (4.8 - 10.8) RDW-CV 12.9 % 03/05/22 (39 weeks) (11.5 - 14.5) Imm Gran Absolute (N) 0.22 03/05/22 (39 weeks) Imm Gran Auto (H) 1.5 % 03/05/22 (39 weeks) (0.0 - 0.5) Eos, Auto 0.50 % 03/05/22 (39 weeks) (0.00 - 3.00) Neutro Auto (H) 82.3 % 03/05/22 (39 weeks) (42.2 - 75.2) Lymph Auto (L) 8.5 % 03/05/22 (39 weeks) (20.5 - 51.1) Baso Absolute 0.0 K/mcL 03/05/22 (39 weeks) (0.0 - 0.2) Basophil Auto 0.3 % 03/05/22 (39 weeks) (0.0 - 0.8) Eos Absolute 0.1 K/mcL 03/05/22 (39 weeks) (0.0 - 0.2) Neutro Absolute (H) 11.9 K/mcL 03/05/22 (39 weeks) (1.4 - 6.5) Merrick Absolute (H) 1.0 K/mcL 03/05/22 (39 weeks) (0.1 - 0.6) Lymph Absolute 1.2 K/mcL 03/05/22 (39 weeks) (1.2 - 3.4) Merrick Auto 6.9 % 03/05/22 (39 weeks) (1.7 - 9.3) ABSC Echo Positive 03/05/22 (39 weeks) ABO/Rh Echo (U) A NEG 03/05/22 (39 weeks) Antibody ID (U) Passive Anti-D 03/05/22 (39 weeks) .Hb (N) 12.6 03/05/22 (39 weeks) eAvg Glucose (N) 111 03/05/22 (39 weeks) Hgb A1c Percent 5.5 % 03/05/22 (39 weeks) (4.0 - 6.0) .Hgb A1c (N) 0.46 03/05/22 (39 weeks) Syphilis Abs Qual Non Reactive 03/05/22 (39 weeks) Non Reactive SYLVIA ODONNELL: [birth year] Actions No Actions have been documented. SYLVIA ODONNELL: [birth year] Situational Awareness No comments have been documented. SYLVIA ODONNELL : [birth year] Allergies (Active and Proposed Allergies Only) Aspir 81 (Severity: Severe, Onset: Unknown) Reactions: stomach pain, nausea, vomiting SYLVIA ODONNELL : [birth year] Medications Prescriptions and Home Medications Currently Active or Taking Macrobid 100 mg oral capsule SI mg = 1 cap, Oral, BID, for 5 days, 10 cap, 0 Refill(s) Ordered: 03/17/22 Provider: DO Niko Smith Multivitamins (Historically recorded) SI tab, Oral, Daily, 0 Refill(s) Ordered: 03/04/22 Provider: -- Inactive or Suspended (Prescriptions and documented medications since 02/22/21) Dulcolax Laxative 5 mg oral delayed release tablet (Historically recorded) SI Unknown, 0 Refill(s) Status: Discontinued Ordered: 12/24/21 Provider: -- Eucerin Eczema Relief (Historically recorded) SI Refill(s) Status: Discontinued Ordered: 01/04/22 Provider: -- Lotrimin AF 2% topical powder SI blossom, Topical, BID, for 14 days, 133 g, 1 Refill(s) Status: Discontinued Ordered: 01/04/22 Provider: Amelie Clements APRN miconazole 2% topical cream SI blossom, Topical, BID, for 14 days, 60 g, 1 Refill(s) Status: Discontinued Ordered: 01/04/22 Provider: Amelie Clements APRN Multi + DHA (Historically recorded) SI Refill(s) Status: Discontinued Ordered: 12/24/21 Provider: -- Proctosol-HC 2.5% topical cream (Historically recorded) SIG: BID, 1 Unknown, 0 Refill(s) Status: Discontinued Ordered: 12/24/21 Provider: -- Medication Administrations In-Office/Hospital (All in-office/hospital administrated medications ordered since 02/22/21) Multivitamins (Multiple Vitamins [LTTL]) 1 tab, Oral, Daily Status: Canceled Ordered: 03/04/22 Provider: Elizabeth Desouza MD, FACOG Multivitamins (Multiple Vitamins [LTTL]) 1 tab, Oral, Daily Status: Canceled Ordered: 03/04/22 Provider: Elizabeth Desouza MD, FACOG ceFAZolin (cefazolin) 2 g = 50 mL, N/A, Once Status: Completed Ordered: 03/05/22 Provider: Monica, Generated citric acid-sodium citrate 334 mg-500 mg/5 mL (sodium citrate-citric acid) 30 mL, N/A, Once Status: Completed Ordered: 03/05/22 Provider: Monica Generated dexamethasone 10 mg = 1 mL, N/A, Once Status: Completed Ordered: 03/05/22 Provider: RaymondUser, Generated docusate-senna 50 mg-8.6 mg (docusate-senna) 1 tab, N/A, Once Status: Completed Ordered: 03/06/22 Provider: Monica Generated ePHEDrine 50 mg = 1 mL, N/A, Once Status: Completed Ordered: 03/05/22 Provider: Monica Generated erythromycin ophthalmic 0.5% (erythromycin ophthalmic) 1 blossom, N/A, Once Status: Completed Ordered: 03/05/22 Provider: DomainUser, Generated lidocaine 1% (lidocaine) 20 mL, N/A, Once Status: Completed Ordered: 03/05/22 Provider: DomainUser, Generated metoclopramide 10 mg = 2 mL, N/A, Once Status: Completed Ordered: 03/05/22 Provider: DomainUser, Generated midazolam 2 mg = 2 mL, N/A, Once Status: Completed Ordered: 03/05/22 Provider: DomainUser, Generated mineral oil 100% (mineral oil) 30 mL, N/A, Once Status: Completed Ordered: 03/05/22 Provider: DomainUser, Generated miSOPROStol (miSOPROStol 25 mcg (Quarter) Tab [LTTL]) 25 mcg = 0.25 tab, VAG, Once Status: Completed Ordered: 03/04/22 Provider: Elizabeth Desouza MD, FACOG miSOPROStol 100 mcg = 1 tab, N/A, Once Status: Completed Ordered: 03/04/22 Provider: DomainUser, Generated miSOPROStol (miSOPROStol 50 mcg (Half) Tab [LTTL]) 50 mcg = 0.5 tab, VAG, Once Status: Completed Ordered: 03/04/22 Provider: Elizabeth Desouza MD, FACOG miSOPROStol 1,000 mcg = 5 tab, N/A, Once Status: Completed Ordered: 03/05/22 Provider: DomainUser, Generated morphine 10 mg = 1 mL, N/A, Once Status: Completed Ordered: 03/04/22 Provider: DomainUser, Generated morphine (Morphine 10 mg/mL Inj 1 ml [LTTL]) 10 mg = 1 mL, IM, Once Status: Completed Ordered: 03/04/22 Provider: Elizabeth Desouza MD, FACOG multivitamin (multivitamin, ) 1 tab, N/A, Once Status: Completed Ordered: 03/06/22 Provider: DomainUser, Generated NIFEdipine 10 mg = 1 cap, N/A, Once Status: Completed Ordered: 02/07/22 Provider: DomainUser, Generated NIFEdipine (NIFEdipine 10 mg Cap [LTTL]) 10 mg = 1 cap, Oral, Once Status: Completed Ordered: 02/07/22 Provider: Dick Parker MD ondansetron 4 mg = 2 mL, N/A, Once Status: Completed Ordered: 03/05/22 Provider: DomainUser, Generated oxytocin 30 units = 3 mL, N/A, Once Status: Completed Ordered: 03/05/22 Provider: DomainUser, Generated oxytocin 10 units = 1 mL, N/A, Once Status: Completed Ordered: 03/05/22 Provider: DomainUser, Generated oxytocin 20 units = 2 mL, N/A, Once Status: Completed Ordered: 03/05/22 Provider: DomainUser, Generated Phenergan (Promethazine 25 mg/mL Inj 1 mL Vial [LTTL]) 25 mg = 1 mL, IM, Once Status: Completed Ordered: 03/04/22 Provider: Elizabeth Desouza MD, RIKYOG promethazine 25 mg = 1 mL, N/A, Once Status: Completed Ordered: 03/04/22 Provider: RaymondUser, Generated propofol 200 mg = 20 mL, N/A, Once Status: Completed Ordered: 03/05/22 Provider: RaymondUser, Generated oxytocin IV additive 30 units + Premix Diluent 500 mL (oxytocin 30 units + Premix Diluent 500 mL) Titrate Per Protocol, IV, Stop: 04/04/22 9:11:00 EST Status: Voided Ordered: 03/05/22 Provider: Elizabeth Desouza MD, ETHAN acetaminophen (Acetaminophen 325 mg Tab [LTTL]) 650 mg = 2 tab, Oral, every 4 hr, PRN: pain, mild Status: Discontinued Ordered: 03/05/22 Provider: Elizabeth Desouza MD, FACOG acetaminophen 1,000 mg = 100 mL, 333.33 mL/hr, IV Piggyback, every 6 hr, PRN: pain Status: Discontinued Ordered: 03/05/22 Provider: Elizabeth Desouza MD, FACOG ceFAZolin 2 g = 50 mL, 100 mL/hr, IV Piggyback, Once Status: Discontinued Ordered: 03/05/22 Provider: Elizabeth Desouza MD, FACOG docusate-senna 50 mg-8.6 mg oral tablet (Senna-Docusate 8.6 mg-50 mg Tab [LTTL]) 1 tab, Oral, BID Status: Discontinued Ordered: 03/06/22 Provider: Elizabeth Desouza MD, FACOG ibuprofen (Ibuprofen 600 mg Tab [LTTL]) 600 mg = 1 tab, Oral, every 4 hr, PRN: pain, mild Status: Discontinued Ordered: 03/05/22 Provider: Elizabeth Desouza MD, FACOG ketorolac (Ketorolac 30 mg/mL Inj 1ml Vial [LTTL]) 30 mg = 1 mL, IV Push, every 6 hr, PRN: pain, mild Status: Discontinued Ordered: 03/05/22 Provider: Elizabeth Desouza MD, FACOG Lactated Ringers Injection 1,000 mL (Lactated Ringers 1,000 mL) 100 mL/hr, IV, Stop: 04/04/22 8:05:00 EST Status: Discontinued Ordered: 03/05/22 Provider: Elizabeth Desouza MD, FACOG Lactated Ringers Injection 1,000 mL (Lactated Ringers 1,000 mL) 150 mL/hr, IV, Stop: 04/04/22 9:21:00 EST Status: Discontinued Ordered: 03/05/22 Provider: Elizabeth Desouza MD, FACOG Lactated Ringers Injection 1,000 mL (Lactated Ringers 1,000 mL) 150 mL/hr, IV Status: Discontinued Ordered: 03/05/22 Provider: Elizabeth Desouza MD, FACOG metoclopramide (Metoclopramide 5 mg/mL Inj 2 ml Vial [LTTL]) 10 mg = 2 mL, IV Push, Once Status: Discontinued Ordered: 03/05/22 Provider: Elizabeth Desouza MD, FACOG miSOPROStol (miSOPROStol 25 mcg (Quarter) Tab [LTTL]) 25 mcg = 0.25 tab, VAG, every 3 hr, PRN: other (see comment) Status: Discontinued Ordered: 03/05/22 Provider: Elizabeth Desouza MD, FACOG morphine (Morphine 2 mg/mL Inj 1 ml [LTTL]) 2 mg = 1 mL, IV Push, every 30 min, PRN: pain, moderate Status: Discontinued Ordered: 03/05/22 Provider: Elizabeth Desouza MD, FACOG morphine (Morphine 4 mg/mL Inj 1ml [LTTL]) 4 mg = 1 mL, IV Push, every 30 min, PRN: pain, severe Status: Discontinued Ordered: 03/05/22 Provider: Elizabeth Desouza MD, FACOG naloxone (Naloxone 0.4 mg/mL Inj 1ml Vial [LTTL]) 0.1 mg = 0.25 mL, IV Push, every 5 min, PRN: other (see comment) Status: Discontinued Ordered: 03/05/22 Provider: Elizabeth Desouza MD, FACOG Normal Saline Flush (Sodium Chloride 0.9% Flush IV Yael 10 mL [LTTL]) 10 mL, IV Flush, As Directed, PRN: offline editor Status: Discontinued Ordered: 03/17/22 Provider: Roel Osborne DO oxyCODONE (oxyCODONE 5 mg Tab [LTTL]) 5 mg = 1 tab, Oral, every 4 hr, PRN: pain, moderate Status: Discontinued Ordered: 03/05/22 Provider: Elizabeth Desouza MD, FACOG oxyCODONE (oxyCODONE 5 mg Tab [LTTL]) 10 mg = 2 tab, Oral, every 4 hr, PRN: pain, severe Status: Discontinued Ordered: 03/05/22 Provider: Elizabeth Desouza MD, FACOG oxyCODONE-acetaminophen 5 mg-325 mg oral tablet (Acetaminophen-oxyCODONE 325-5 mg Tab [LTTL]) 1 tab, Oral, every 4 hr, PRN: pain, mild Status: Discontinued Ordered: 03/05/22 Provider: Elizabeth Desouza MD, FACOG oxyCODONE-acetaminophen 5 mg-325 mg oral tablet (Acetaminophen-oxyCODONE 325-5 mg Tab [LTTL]) 2 tab, Oral, every 4 hr, PRN: pain, moderate Status: Discontinued Ordered: 03/05/22 Provider: Elizabeth Desouza MD, FACOG oxytocin 30 units + Lactated Ringers Injection 500 mL (oxytocin 30 units + Lactated Ringers 500 mL) titrate per protocol, Injection, Stop: 04/04/22 9:16:00 EST Status: Discontinued Ordered: 03/05/22 Provider: Elizabeth Desouza MD, FACOG oxytocin IV additive 30 units + Premix Diluent 500 mL (oxytocin 30 units + Premix Diluent 500 mL) Titrate Per Protocol, IV, Stop: 04/04/22 8:04:00 EST Status: Discontinued Ordered: 03/05/22 Provider: Elizabeth Desouza MD, FACOG oxytocin IV additive 30 units + Premix Diluent 500 mL (oxytocin 30 units + Premix Diluent 500 mL) Titrate Per Protocol, IV, Stop: 04/04/22 8:08:00 EST Status: Discontinued Ordered: 03/05/22 Provider: Elizabeth Desouza MD, FACOG Multivitamins (Multiple Vitamins [LTTL]) 1 tab, Oral, Daily Status: Discontinued Ordered: 03/06/22 Provider: Elizabeth Desouza MD, FACOG Sodium Chloride 0.9% 1,000 mL 999 mL/hr, Hydration Bolus, Stop: 03/17/22 3:04:00 EST Status: Discontinued Ordered: 03/17/22 Provider: Roel Osborne DO Sodium Chloride 0.9% 1,000 mL 125 mL/hr, IV Status: Discontinued Ordered: 03/17/22 Provider: Roel Osborne DO sodium citrate-citric acid (Citric Acid-Sodium Citrate Oral Yael 30mL [LTTL]) 30 mL, Oral, Once Status: Discontinued Ordered: 03/05/22 Provider: Elizabeth Desouza MD, FACOG triamcinolone 0.025% topical cream (Trimancinolone Acet 0.025% Top Crm 15 g [LTTL]) 1 blossom, Topical, every 6 hr, PRN: itching Status: Discontinued Ordered: 03/06/22 Provider: Elizabeth Desouza MD, FACOG SYLVIA ODONNELL : 89 Immunizations No immunizations have been administered or recorded as given SYLVIA ODONNELL : 89 Menstrual History Last Recorded Menstrual Period: 05/23/2021 Last Menstrual Period Description: -- Menarche Onset: -- Menarche Frequency: -- Menarche Length: 7 days Date of Menses Prior to LMP: -- On Hormonal Contracept within 2 months of LMP: -- Date of Home Test: -- Comments: -- SYLVIA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
--- OUTSIDE RECORDS SUMMARY | 2023-01-12 17:33 | XMS_ITS | Continuity of Care Document ---
Author Name Unknown Organization [facility] Address [address] [place] [address] Care Team Providers Care Spanner Operator Name Role Phone BENNY NIX Primary Care Physician Unavailab le Encounter [facility] FIN NBR [id number] Date(s): 02/07/22 - 02/07/[address] [address]- [place] Encounter Diagnosis Threatened labor, antepartum(Discharge Diagnosis) - 02/07/22 False labor before 37 completed weeks of gestation, third trimester(Final) - 36 weeks gestation of (Final) - Discharge Disposition: Home or Self Care Attending Physician: Dick Parker MD Admitting Physician: Dick Parker MD Allergies, Adverse Reactions, Alerts Substance Reaction Severity Status Aspir 81 stomach pain, nausea, vomiting Severe Active Assessment and Plan Future Appointments Appointment Date:02/09/2022 12:30:00 PM Scheduled Provider:Dick Parker MD Location:[facility] Appointment Type:OB Follow Up Appointment Date:02/16/2022 07:00:00 AM Scheduled Provider: Location:[facility] Appointment Type:OB Follow Up Appointment Date:02/23/2022 07:00:00 AM Scheduled Provider: Location:[facility] Appointment Type:OB Follow Up Appointment Date:03/02/2022 07:00:00 AM Scheduled Provider: Location:[facility] Appointment Type:OB Follow Up Medications Eucerin Eczema Relief 0 Refill(s) Start Date: 01/04/22 Status: Ordered Lotrimin AF 2% topical powder 1 blossom, Topical, BID, # 133 g, 1 Refill(s), [id number], 165.1, cm, 12/24/21 9:11:00 EDT, Height/Length Dosing, 82.2, kg, 12/24/21 9:11:00 EDT, Weight Dosing Start Date: 01/04/22 Stop Date: 02/01/22 Status: Ordered miconazole 2% topical cream 1 blossom, Topical, BID, # 60 g, 1 Refill(s), Pharmacy: [id number], 165.1, cm, 12/24/21 9:11:00 EDT, Height/Length Dosing, 82.2, kg, 12/24/21 9:11:00 EDT, Weight Dosing Start Date: 01/04/22 Stop Date: 02/01/22 Status: Ordered Multi + DHA 0 Refill(s) Start Date: 12/24/21 Status: Ordered Proctosol-HC 2.5% topical cream BID, 1 Unknown, 0 Refill(s) Start Date: 12/24/21 Status: Ordered Problem List Condition Confirmation Course Effective Dates Status H ealth Status Informant Abnormal glucose tolerance test (GTT) during , antepartum Confirmed Active Endometriosis Confirmed Active Depression with [...] 2011 Complete d 1negative except for hemorrhoids Vital Signs Most recent to oldest [Reference Range]: 1 Temperature Temporal Artery [36-38 Deg C ] 36.8 Deg C (02/07/22 11:03 PM) Peripheral Pulse Rate [60-100 bpm] 96 bp m (02/07/22 11:03 PM) Respiratory Rate [12-24 br/min] 18 br/mi n (02/07/22 11:03 PM) Blood Pressure [90-140/60-90 mmHg] 121/7 8mmHg (02/07/22 11:03 PM) Weight 84.8 kg (02/07/22 11:03 PM) Height 165.1 cm (02/07/22 11:03 PM) Social History Social History Type Response Tobacco Never tobacco user, Marijuana Tobacco Use:. Sex Hospital Discharge Instructions Patient Education 02/07/2022 23:15:53 Signs and Symptoms of Labor Signs and Symptoms of Labor Labor is the body's natural process of moving the baby and the placenta out of the uterus. The process of labor usually starts when the baby is full-term, between 37 and 40 weeks of . Signs and symptoms that you are close to going into labor As your body prepares for labor and the of your baby, you may notice the following symptoms in the weeks and days before true labor starts: ??? Passing a small amount of thick, bloody mucus from your vagina. This is called normal bloody show or losing your mucus plug. This may happen more than a week before labor begins, or right before labor begins, as the opening of the cervix starts to widen (dilate). For some women, the entire mucus plug passes at once. For others, pieces of the mucus plug may gradually pass over several days. ??? Your baby moving (dropping) lower in your pelvis to get into position for (lightening). When this happens, you may feel more pressure on your bladder and pelvic bone and less pressure on your ribs. This may make it easier to breathe. It may also cause you to need to urinate more often andhave problems with bowel movements. ??? Having practice contractions, also called [place] contractions or false labor. These occur at irregular (unevenly spaced) intervals that are more than 10 minutes apart. False labor contractions are common after exercise or sexual activity. They will stop if you change position, rest, ordrink fluids. These contractions are usually mild and do not get stronger over time. They may feel like: ??? A backache or back pain. ??? Mild cramps, similar to menstrual cramps. ??? Tightening or pressure in your abdomen. Other early symptoms include: ??? Nausea or loss of appetite. ??? Diarrhea. ??? Having a sudden burst of energy, or feeling very tired. ??? Mood changes. ??? Having trouble sleeping. Signs and symptoms that labor has begun Signs that you are in labor may include: ??? Having contractions that come at regular (evenly spaced) intervals and increase in intensity. This may feel like more intense tightening or pressure in your abdomen that moves to your back. ??? Contractions may also feel like rhythmic pain in your upper thighs or back that comes and goes at regular intervals. ??? For first-time mothers, this change in intensity of contractions often occurs at a more gradualpace. ??? Women who have given before may notice a more rapid progression of contraction changes. ??? Feeling pressure in the vaginal area. ??? Your water breaking (rupture of membranes). This is when the sac of fluid that surrounds your baby breaks. Fluid leaking from your vagina may be clear or blood-tinged. Labor usually starts [id number] hours of your water breaking, but it may take longer to begin. ??? Some women may feel a sudden gush of fluid. ??? Others notice that their underwear repeatedly becomes damp. Follow these instructions at home: ??? When labor starts, or if your water breaks, call your health care provider or nurse care line. Based on your situation, they will determine when you should go in for an exam. ??? During early labor, you may be able to rest and manage symptoms at home. Some strategies to tryat home include: ??? Breathing and relaxation techniques. ??? Taking a warm bath or shower. ??? Listening to music. ??? Using a heating pad on the lower back for pain. If you are directed to use heat: ??? Place a towel between your skin and the heat source. ??? Leave the heat on for 20???30 minutes. ??? Remove the heat if your skin turns bright red. This is especially important if you are unable to feel pain, heat, or cold. You may have a greater risk of getting burned. Contact a health care provider if: ??? Your labor has started. ??? Your water breaks. Get help right away if: ??? You have painful, regular contractions that are 5 minutes apart or less. ??? Labor starts before you are 37 weeks along in your . ??? You have a fever. ??? You have bright red blood coming from your vagina. ??? You do not feel your baby moving. ??? You have a severe headache with or without vision problems. ??? You have severe nausea, vomiting, or diarrhea. ??? You have chest pain or shortness of breath. These symptoms may represent a serious problem that is an emergency. Do not wait to see if the symptoms will go away. Get medical help right away. Call your local emergency services (911 in the [place] Do not drive yourself to the hospital. Summary ??? Labor is your body's natural process of moving your baby and the placenta out of your uterus. ??? The process of labor usually starts when your baby is full-term, between 37 and 40 weeks of . ??? When labor starts, or if your water breaks, call your health care provider or nurse care line. Based on your situation, they will determine when you should go in for an exam. This information is not intended to replace advice given to you by your health care provider. Make sure you discuss any questions you have with your health care provider. Document Revised: 12/12/2020 Document Reviewed: 12/12/2020 [employer] Patient Education ?? 2021 [employer]. Obstetrics Progress note * Dick Parker MD: PERFORM Event Display: Obstetrics Progress Note Authored Date: [id number] INDIO ODONNELL :1995 Age:26 years Sex:Female Visit Date:02/07/2022 Primary Care Physician: BENNY NIX The patient presents at 36 weeks and??1 day with increased discharge,??the sensation that the baby is getting lower in the pelvis, and??uterine irritability. ??No large gush of fluid.?? Baby remains active.?? She has noted these contractions for the last few days. Objective Vitals & Measurements T:??36.8?C ??(Temporal Artery)?? HR:??96??(Peripheral)?? RR:??18?? BP:??121/78?? HT:??165.1??cm?? WT:??84.8??kg?? Physical Exam The uterus is??soft and gravid. ??Nontender. Sterile vaginal exam:??Closed,??-4,??firm. heart tones: The?? heart rate baseline is in the 130s. ??There is moderate variability and there are accelerations. ??No decelerations. ??She has uterine irritability??with a??regular pattern but they are??mild to moderate in strength. Assessment/Plan 1.??Threatened labor, antepartum??O47.03 The patient has??threatened premature labor with reassuring?? monitoring.?? Her cervix is not changing with these contractions. ??I recommended she be given a dose of nifedipine to help settle her uterus. ??She should be fine to be discharged home. ??I encouraged her to??take some Tylenol and Benadryl and get some rest. ??If she has a large gush of fluid, bleeding, or any other concerning??findings I asked that she call and we can??reassess her.?? Otherwise she can follow-up for her next appointment as scheduled.?? Category 1 nonstress test. Orders: NIFEdipine, 10 mg = 1 cap, Oral, Cap, Once, First Dose: 02/08/22 0:00:00 EST, Stop Date: 02/08/22 0:00:00 EST, Physician Stop, Routine Non-Stress Test (NST), 02/07/22 22:58:00 EST, Stop date 02/07/22 22:58:00 EST Electronically Signed on 02/07/22 11:42 PM Dick Parker MD Patient Care team information Personnel Name: BENNY NIX Address: Address: [facility] [address] [address] [place], [place] [address]
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
--- OUTSIDE RECORDS SUMMARY | 2023-01-12 17:33 | XMS_ITS | Continuity of Care Document ---
Author Name Unknown Organization [facility] Address [address] [place] [address] Care Team Providers Care Box Worker Name Role Phone BENNY NIX Primary Care Physician Unavailab le Encounter [facility] [facility] NBR [id number] Date(s): 12/29/21 - 12/29/[address] [address]- [place] Discharge Disposition: Home or Self Care Attending Physician: Wyatt Desouza MD, FACOG Admitting Physician: Wyatt Desouza MD, FACOG Referring Physician: Wyatt Desouza MD, FACOG Allergies, Adverse Reactions, Alerts Substance Reaction Severity Status Aspir 81 stomach pain, nausea, vomiting Severe Active Assessment and Plan Future Appointments Appointment Date:01/21/2022 02:00:00 PM Scheduled Provider: Location:[facility] Appointment Type:OB Follow Up Medications Multi + DHA 0 Refill(s) Start Date: 12/24/21 Status: Ordered Proctosol-HC 2.5% topical cream BID, 1 Unknown, 0 Refill(s) Start Date: 12/24/21 Status: Ordered Problem List Condition Confirmation Course Effective Dates Status H ealt Status Informant Abnormal glucose tolerance test (GTT) [...] for hemorrhoids Results Laboratory List Name Date .GTT 3 HR OB 100gm 12/29/21 .GTT 2 HR OB 100gm 12/29/21 .GTT 1 HR OB 100gm 12/29/21 .GTT Fasting OB 12/29/21 Most recent to oldest [Reference Range]: 1 Gluc Fasting OB 84 *NA* (12/29/21 8:24 AM) Gluc 1 Hr OB 100gm 119 *NA* (12/29/21 9:24 AM) Gluc 2 Hr OB 100gm 78 *NA* (12/29/21 10:22 AM) Gluc 3 Hr OB 100gm 61 *NA* (12/29/21 11:23 AM) Social History Social History Type Response Tobacco Never tobacco user, Marijuana Tobacco Use:. Sex Patient Care team information Personnel Name: BENNY NIX Address: Address: [facility] [address] [place], [place] [address]
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
--- OUTSIDE RECORDS SUMMARY | 2023-01-12 17:34 | XMS_ITS | Continuity of Care Document ---
Author Name Unknown Organization [facility] Ambulatory [facility] Address [address] [place] [address] Care Team Providers Care Medical Billing And Coding Instructor Name Role Phone BENNY NIX Primary Care Physician Unavailab le Encounter [facility] NBR [id number] Date(s): 02/09/22 - 02/09/22 [facility] [address] [place] [address]- [place] Encounter Diagnosis Encounter for supervision of normal first in third trimester(Discharge Diagnosis) - 02/09/22 Discharge Disposition: Home or Self Care Attending Physician: Dick Parker MD Allergies, Adverse Reactions, Alerts Substance Reaction Severity Status Aspir 81 stomach pain, nausea, vomiting Severe Active Assessment and Plan Future Appointments Appointment Date:02/16/2022 07:00:00 AM Scheduled Provider: Location:[facility] Appointment Type:OB Follow Up Appointment Date:02/23/2022 07:00:00 AM Scheduled Provider: Location:[facility] Appointment Type:OB Follow Up Appointment Date:03/02/2022 07:00:00 AM Scheduled Provider: Location:[facility] Appointment Type:OB Follow Up Medications Lotrimin AF 2% topical powder 1 blossom, Topical, BID, # 133 g, 1 Refill(s), Pharmacy: [facility] [id number], 165.1, cm, 12/24/21 9:11:00 EDT, [...] pel aneta endometriosis 12/12/18 Completed Umbilical hernia 2010 Complete d 1negative except for hemorrhoids Results Most recent to oldest [Reference Range]: 1 Protein Urine Dipstick Negative (02/09/22 1:17 PM) Glucose Urine Dipstick Negative (02/09/22 1:17 PM) Vital Signs Most recent to oldest [Reference Range]: 1 Blood Pressure [90-140/60-90 mmHg] 132/7 2mmHg (02/09/22 1:17 PM) Weight 90.6 kg (02/09/22 1:17 PM) Pre- Weight 63.50 kg (02/09/22 1:17 PM) Cumulative Weight Gain 27 kg (02/09/22 1:17 PM) Height 165.1 cm (02/09/22 1:17 PM) Body Mass Index 33.24 kg/m2 (02/09/22 1:17 PM) Social History Social History Type Response Tobacco Never tobacco user, Marijuana Tobacco Use:. Sex Physician Outpatient Note * Dick Parker MD: PERFORM Event Display: Office Clinic Note Physician Authored Date: [id number] INDIO ODONNELL :1995 Age:26 years Sex:Female Visit Date:02/09/2022 Primary Care Physician: BENNY NIX YELENA/EGA Gestational Age (EGA) and YELENA? * Note: EGA calculated as of 02/09/2022 ?? YELENA:??03/06/2022?EGA*:??36 weeks 3 days ?Type:??Authoritative?Method Date:??08/11/2021 ?Method:??Ultrasound??(08/11/2021) ?Confirmation:??Confirmed ?Description:??-- ?Comments:??-- ?Entered by:??Roseanna Hathaway on 12/23/2021? Other YELENA Calculations for this : ?Method:??Last Menstrual Period ?Method Date:??05/23/2021 ?YELENA:??02/27/2022 ?EGA (At Entry):??30 weeks 5 days ?Type:??Non-Authoritative ?Comments:??-- ?Entered by:??Wyatt Desouza MD, FACOG on 12/24/2021 ?Method:??Ultrasound ?Method Date:??11/02/2021 ?YELENA:??03/09/2022 ?EGA (At Entry):??21 weeks 6 days ?Type:??Non-Authoritative ?Comments:??-- ?Entered by:??Yusuf Hathawayt on 12/23/2021 Chief Complaint Ob Follow-up History of Present Illness No reg CTXs.?? GBS NV. Physical Exam Vitals & Measurements BP:??132/72?? HT:??165.1??cm?? WT:??90.6??kg?? BMI:??33.24?? Risk Factors No risk factors documented Assessment/Plan 1.??Encounter for supervision of normal first in third trimester??Z34.03 Doing well.?? Swelling rec's given.?? GBS NV. Cards Exam and Notes ?? Exams and Notes ?? Date:??02/09/22 EGA:??36w3d Weight (lbs kg):??*199... Fundal Height [...] of pelvic endometriosis (12/13/2018)???Umbilical hernia (2010) Medications Eucerin Eczema Relief Lotrimin AF 2% topical powder, 1 blossom, Topical, BID, 1 refills miconazole 2% topical cream, 1 blossom, Topical, BID, 1 refills Multi + DHA Proctosol-HC 2.5% topical cream, BID Allergies Aspir 81??(stomach pain, nausea, vomiting) Social History Electronic Cigarette/Vaping Electronic Cigarette Use: Never. Home/Environment Lives with Mother. Living situation: Home/Independent. Sexual Sexually active: Yes. Tobacco Never tobacco user, Marijuana Tobacco Use:. Family History Alive: Mother. Alive and well: [...] Performed: 09/08/21 Rubella,Transcribed: Immune Electronically Signed on 02/09/22 01:38 PM Dick Parker MD Patient Care team information Personnel Name: BENNY NIX Address: Address: [facility] [address] [place], [place] [address]
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
--- OUTSIDE RECORDS SUMMARY | 2023-01-12 17:34 | XMS_ITS | Continuity of Care Document ---
Author Name Unknown Organization [facility] Address [address] [place] [address] Care Team Providers Care Health Support Specialist Name Role Phone BENNY NIX Primary Care Physician Unavailab le Encounter [facility] FIN NBR [id number] Date(s): 02/16/22 - 02/16/[address] [id number]- [place] Encounter Diagnosis Encounter for screening(Discharge Diagnosis) - 02/16/22 Discharge Disposition: Home or Self Care Attending Physician: Wyatt Desouza MD, FACOG Admitting Physician: Wyatt Desouza MD, FACOG Allergies, Adverse Reactions, Alerts Substance Reaction Severity Status Aspir 81 stomach pain, nausea, vomiting Severe Active Assessment and Plan Future Appointments Appointment Date:02/23/2022 07:00:00 AM Scheduled Provider: Location:[facility] Appointment Type:OB Follow Up Appointment Date:03/02/2022 07:00:00 AM Scheduled Provider: Location:[facility] Appointment Type:OB Follow Up Diagnostic Tests Pending * Group B Strep (GeneXpert) 02/16/22 Future Scheduled Tests Laboratory* Group B Strep (GeneXpert) 02/16/22 Medications Lotrimin AF 2% topical powder 1 blossom, Topical, BID, # 133 g, 1 Refill(s), Pharmacy: [id number], 165.1, cm, 12/24/21 9:11:00 [...] 2010 Complete d 1negative except for hemorrhoids Social History Social History Type Response Tobacco Never tobacco user, Marijuana Tobacco Use:. Sex Patient Care team information Personnel Name: BENNY NIX Address: Address: [address] [place], [place] [address]
--- OUTSIDE RECORDS SUMMARY | 2023-01-12 17:34 | XMS_ITS | Continuity of Care Document ---
Author Name Unknown Organization [facility] Address [address] [place] [address] Care Team Providers Care Plant Pathologist Name Role Phone DINAH BENNY Primary Care Physician Unavailab le Encounter [facility] NBR [id number] Date(s): 10/10/22 - 10/10/[address] [phone] Encounter Diagnosis Viral upper respiratory infection(Discharge Diagnosis) - 10/10/22 Discharge Disposition: Home or Self Care Attending Physician: Altagracia Joseph MD Allergies, Adverse Reactions, Alerts Substance Reaction Severity Status aspirin Vomiting Moderate Active Aspir 81 stomach pain, nausea, vomiting Severe Active Aspartame Migraine Severe Active Assessment and Plan Diagnostic Tests Pending * SARS-CoV-2 (Covid-19) AG (Dorothy) POCT 10/10/22 Future Scheduled Tests Laboratory* Group B Strep ([facility]) 02/16/22 Functional Status 10/10/22 Other exposure to Infectious Disease COV ID-19 Symptoms Present Medications FLUoxetine 20 mg oral tablet 20 mg = 1 tab, Oral, Daily, # 30 tab, 6 Refill(s), Pharmacy: [facility] [address], darrell Phelan, 03/17/22 1:54:00 EST, Height/Length Dosing, 82, kg, 03/17/22 1:54:00 EST, Weight Dosing Start Date: 08/12/22 Status: Ordered Nexplanon 0 Refill(s) Start Date: 08/12/22 Status: Ordered ondansetron 4 mg oral tablet, disintegrating 4 mg = 1 tab, Oral, TID, X 3 days, # 9 tab, 0 Refill(s), 10/13/22 5:01:00 PM CDT, Pharmacy: [id number], 165, cm, 10/10/22 16:34:00 EDT, Height/Length Dosing, 82, kg, 10/10/22 16:34:00 EDT, Weight Dosing Start Date: 10/10/22 Stop Date: 10/13/22 Status: Ordered predniSONE 20 mg oral tablet 40 mg = 2 tab, Oral, Daily, # 8 tab, 0 Refill(s), Pharmacy: [id number], 165, cm, 10/10/22 16:34:00 EDT, Height/Length Dosing, 82, kg, 10/10/22 16:34:00 EDT, Weight Dosing Start Date: 10/10/22 Stop Date: 10/14/22 Status: Ordered Mental Status 10/10/22 Eye Opening Response Charlene Spontaneous ly Best Verbal Response Charlene Oriented Best Motor Response [place] Obeys comman ds Charlene Coma Score 15 [...] surgical case 2negative except for hemorrhoids Results Radiology Reports * Exam Date Time Procedure Performing Provider Status 10/10/22 5:19 PM XR Chest 2 Views Estrellita Gómez; Dora h (Verified) Notes: (XR Chest 2 Views) Reason For Exam: SOB;Chest pain XR Chest 2 Views PROCEDURE INFORMATION: Exam: XR Chest Exam date and time: 10/10/2022 5:06 PM Age: 27 years old Clinical indication: Other: Chest pain TECHNIQUE: Imaging protocol: Radiologic exam of the chest. Views: 2 views. COMPARISON: CR XR CHEST SINGLE VIEW 12/03/2021 7:01 PM FINDINGS: Lungs: Unremarkable. No consolidation. Pleural spaces: Unremarkable. No pleural effusion. No pneumothorax. Heart/Mediastinum: Unremarkable. No cardiomegaly. Bones/joints: Unremarkable. IMPRESSION: No acute findings. THIS DOCUMENT HAS BEEN ELECTRONICALLY SIGNED BY JABIER SOLORIO MD on 10/10/2022 05:44 PM Final Signed by: Jabier Solorio MD Signed (Electronic Signature): 10/10/2022 5:44 pm Vital Signs Most recent to oldest [Reference Range]: 1 Temperature Oral [35.8-37.3 Deg C] 37.6 Deg C *HI* (10/10/22 4:17 PM) Peripheral Pulse Rate [60-100 bpm] 100 b pm (10/10/22 4:17 PM) Respiratory Rate [12-24 br/min] 20 br/mi n (10/10/22 4:17 PM) Blood Pressure [90-140/60-90 mmHg] 129/7 5mmHg (10/10/22 4:17 PM) Weight Dosing 82.00 kg (10/10/22 4:34 PM) Weight Estimated 82.00 kg (10/10/22 4:17 PM) Height/Length Dosing 165.000 cm (10/10/22 4:34 PM) Height/Length Estimated 165.000 cm (10/10/22 4:17 PM) Social History Social History Type Response Smoking Status Smoking tobacco use: Never tobacco user; Smoking tobacco use: Marijuana;Never entered on: 02/21/22 Sex Female Hospital Discharge Instructions Patient Education 10/10/2022 17:02:34 Upper Respiratory Infection, Adult Upper Respiratory Infection, Adult An upper respiratory infection (URI) is a common viral infection of the nose, throat, and upper airpassages that lead to the lungs. The most common type of URI is the common cold. URIs usually get better on their own, without medical treatment. What are the causes? A URI is caused by a virus. You may catch a virus by: ??? Breathing in droplets from an infected person's cough or sneeze. ??? Touching something that has been exposed to the virus (is contaminated) and then touching your mouth, nose, or eyes. What increases the risk? You are more likely to get a URI if: ??? You are very young or very old. ??? You have close contact with others, such as at work, school, or a health care facility. ??? You smoke. ??? You have long-term (chronic) heart or lung disease. ??? You have a weakened disease-fighting system (immune system). ??? You have nasal allergies or asthma. ??? You are experiencing a lot of stress. ??? You have poor nutrition. What are the signs or symptoms? A URI usually involves some of the following symptoms: ??? Runny or stuffy (congested) nose. ??? Cough. ??? Sneezing. ??? Sore throat. ??? Headache. ??? Fatigue. ??? Fever. ??? Loss of appetite. ??? Pain in your forehead, behind your eyes, and over your cheekbones (sinus pain). ??? Muscle aches. ??? Redness or irritation of the eyes. ??? Pressure in the ears or face. How is this diagnosed? This condition may be diagnosed based on your medical history and symptoms, and a physical exam. Your health care provider may use a swab to take a mucus sample from your nose (nasal swab). This sample can be tested to determine what virus is causing the illness. How is this treated? URIs usually get better on their own within 7???10 days. Medicines cannot cure URIs, but your health care provider may recommend certain medicines to help relieve symptoms, such as: ??? Zscy-itv-powknyk cold medicines. ??? Cough suppressants. Coughing is a type of defense against infection that helps to clear the respiratory system, so take these medicines only as recommended by your health care provider. ??? Fever-reducing medicines. Follow these instructions at home: Activity ??? Rest as needed. ??? If you have a fever, stay home from work or school until your fever is gone or until your health care provider says your URI cannot spread to other people (is no longer contagious). Your health care provider may have you wear a face mask to prevent your infection from spreading. Relieving symptoms ??? Gargle with a mixture of salt and water 3???4 times a day or as needed. To make salt water, completely dissolve ?1 tsp (3???6 g) of salt in 1 cup (237 mL) of warm water. ??? Use a cool-mist humidifier to add moisture to the air. This can help you breathe more easily. Eating and drinking ??? Drink enough fluid to keep your urine pale yellow. ??? Eat soups and other clear broths. General instructions ??? Take olfo-mub-iuegmhb and prescription medicines only as told by your health care provider. These include cold medicines, fever reducers, and cough suppressants. ??? Do not use any products that contain nicotine or tobacco. These products include cigarettes, chewing tobacco, and vaping devices, such as e-cigarettes. If you need help quitting, ask your health care provider. ??? Stay away from secondhand smoke. ??? Stay up to date on all immunizations, including the yearly (annual) flu vaccine. ??? Keep all follow-up visits. This is important. How to prevent the spread of infection to others URIs can be contagious. To prevent the infection from spreading: ??? Wash your hands with soap and water for at least 20 seconds. If soap and water are not available, use hand brush cutter. ??? Avoid touching your mouth, face, eyes, or nose. ??? Cough or sneeze into a tissue or your sleeve or elbow instead of into your hand or into the air. Contact a health care provider if: ??? You are getting worse instead of better. ??? You have a fever or chills. ??? Your mucus is brown or red. ??? You have yellow or brown discharge coming from your nose. ??? You have pain in your face, especially when you bend forward. ??? You have swollen neck glands. ??? You have pain while swallowing. ??? You have white areas in the back of your throat. Get help right away if: ??? You have shortness of breath that gets worse. ??? You have severe or persistent: ??? Headache. ??? Ear pain. ??? Sinus pain. ??? Chest pain. ??? You have chronic lung disease along with any of the following: ??? Making high-pitched whistling sounds when you breathe, most often when you breathe out (wheezing). ??? Prolonged cough (more than 14 days). ??? Coughing up blood. ??? A change in your usual mucus. ??? You have a stiff neck. ??? You have changes in your: ??? Vision. ??? Hearing. ??? Thinking. ??? Mood. These symptoms may be an emergency. Get help right away. Call 911. ??? Do not wait to see if the symptoms will go away. ??? Do not drive yourself to the hospital. Summary ??? An upper respiratory infection (URI) is a common infection of the nose, throat, and upper air passages that lead to the lungs. ??? A URI is caused by a virus. ??? URIs usually get better on their own within 7???10 days. ??? Medicines cannot cure URIs, but your health care provider may recommend certain medicines to help relieve symptoms. This information is not intended to replace advice given to you by your health care provider. Make sure you discuss any questions you have with your health care provider. Document Revised: 09/22/2021 Document Reviewed: 09/22/2021 [employer] Patient Education ?? 2022 [employer]. 10/10/2022 17:02:32 Cough, Adult Cough, Adult Coughing is a reflex that clears your throat and your airways (respiratory system). Coughing helps to heal and protect your lungs. It is normal to cough occasionally, but a cough that happens with other symptoms or lasts a long time may be a sign of a condition that needs treatment. An acute cough may only last 2???3 weeks, while a chronic cough may last 8 or more weeks. Coughing is commonly caused by: ??? Infection of the respiratory systemby viruses or bacteria. ??? Breathing in substances that irritate your lungs. ??? Allergies. ??? Asthma. ??? Mucus that runs down the back of your throat (postnasal drip). ??? Smoking. ??? Acid backing up from the stomach into the esophagus (gastroesophageal reflux). ??? Certain medicines. ??? Chronic lung problems. ??? Other medical conditions such as heart failure or a blood clot in the lung (pulmonary embolism). Follow these instructions at home: Medicines ??? Take ccvv-oos-eyamsgg and prescription medicines only as told by your health care provider. ??? Talk with your health care provider before you take a cough suppressant medicine. Lifestyle ??? Avoid cigarette smoke. Do not use any products that contain nicotine or tobacco, such as cigarettes, e-cigarettes, and chewing tobacco. If you need help quitting, ask your health care provider. ??? Drink enough fluid to keep your urine pale yellow. ??? Avoid caffeine. ??? Do not drink alcohol if your health care provider tells you not to drink. General instructions ??? Pay close attention to changes in your cough. Tell your health care provider about them. ??? Always cover your mouth when you cough. ??? Avoid things that make you cough, such as perfume, candles, cleaning products, or campfire or tobacco smoke. ??? If the air is dry, use a cool mist vaporizer or humidifier in your bedroom or your home to helploosen secretions. ??? If your cough is worse at night, try to sleep in a semi-upright position. ??? Rest as needed. ??? Keep all follow-up visits as told by your health care provider. This is important. Contact a health care provider if you: ??? Have new symptoms. ??? Cough up pus. ??? Have a cough that does not get better after 2???3 weeks or gets worse. ??? Cannot control your cough with cough suppressant medicines and you are losing sleep. ??? Have pain that gets worse or pain that is not helped with medicine. ??? Have a fever. ??? Have unexplained weight loss. ??? Have night sweats. Get help right away if: ??? You cough up blood. ??? You have difficulty breathing. ??? Your heartbeat is very fast. These symptoms may represent a serious problem that is an emergency. Do not wait to see if the symptoms will go away. Get medical help right away. Call your local emergency services (911 in the [place] Do not drive yourself to the hospital. Summary ??? Coughing is a reflex that clears your throat and your airways. It is normal to cough occasionally, but a cough that happens with other symptoms or lasts a long time may be a sign of a condition that needs treatment. ??? Take wdiz-ocy-ibwsotq and prescription medicines only as told by your health care provider. ??? Always cover your mouth when you cough. ??? Contact a health care provider if you have new symptoms or a cough that does not get better after 2???3 weeks or gets worse. This information is not intended to replace advice given to you by your health care provider. Make sure you discuss any questions you have with your health care provider. Document Revised: 03/11/2019 Document Reviewed: 03/11/2019 [employer] Patient Education ?? 2022 [employer]. Follow Up Care 10/10/2022 16:16:20 With:Follow-up with your primary care Address: When:1 week Comments:Follow-up with your primary care as needed, they will be able to reevaluate if necessaryReturn to ED if concerns Discharge instructions * Event Display: Discharge Instructions summary Document * Event Display: Summary Document Authored Date: [id number] INDIO ODONNELL : 1995 Age: 27 Years INDIO ODONNELL : [birth year] Summary (Date of Report: 03/23/22) G 1 P 0 (0,0,0,0) Gestation: Medina LMP: 05/23/2021 (from pt. history) YELENA: 03/06/2022 YELENA/EGA Method: Ultrasound EGA: Delivered Gestation info at delivery: Baby A : 39 weeks 6 days INDIO ODONNELL : [birth year] Antepartum Note Date: 02/21/22 14:46 (38 weeks) By: Filiberto Preciado 2+ pretibial edema Date: 02/09/22 13:36 (36 weeks) By: Dick Parker MD Some brown show, +edema. INDIO ODONNELL : [birth year] Problems (Active Problems Only) (SNOMED CT: 306253540, Onset: 05/23/21) Rh negative (SNOMED CT: 301582606, Onset: --) Scoliosis deformity of spine (SNOMED CT: 521093540, Onset: --) Mixed anxiety and depressive disorder (SNOMED CT: 196199620, Onset: --) Endometriosis (clinical) (SNOMED CT: 740935232, Onset: --) Patient encounter status (SNOMED CT: 772902756, Onset: --) Abnormal glucose tolerance test during - baby not yet delivered (SNOMED CT: 1068805008, Onset: --) Normal (SNOMED CT: 062621394, Onset: --) INDIO ODONNELL : [birth year] Risk [...] Entered by: Roseanna Hathaway on 12/23/2021 INDIO ODONNELL : [birth year] Measurements Pre- Weight: 63.50 [...] Color: Normal for ethnicity (03/17/22) Skin Description: Old Stine, Dry (03/17/22) Skin Temperature: Warm (03/17/22) Skin Turgor: Elastic (03/07/22) Skin Moisture General: Dry (03/07/22) Skin Integrity: Intact, no abnormalities (03/05/22) Mucous Membrane Color: Old Stine (03/07/22) Mucous Membrane Description: Moist, Intact (03/07/22) INDIO ODONNELL: [birth year] Blood Types and Anti-D Immune Globulin Blood Type and Screen Mother ABO/Rh: -- Mother Antibody Screen: -- Father of Baby ABO/Rh: -- Father of Baby Antibody Screen: -- Anti-D Immune Globulin Rho(D) Initial Status: -- Rho(D) 28 Week Status: -- Rho(D) Dates Given: -- INDIO ODONNELL : [birth year] Tests and Lab Results [...] % 12/24/21 (29 weeks) (0.0 - 0.5) [place] Absolute (H) 0.7 K/mcL 12/24/21 (29 weeks) (0.1 - 0.6) Basophil Auto (H) 0.6 % 12/24/21 (29 weeks) (0.0 - 0.2) Neutro Absolute (H) 7.7 K/mcL 12/24/21 (29 weeks) (1.4 - 6.5) [place] Auto 7.2 % 12/24/21 (29 weeks) (1.7 - 9.3) Lymph Absolute 1.2 K/mcL 12/24/21 (29 weeks) (1.2 - 3.4) Lymph Auto (L) 11.9 % 12/24/21 (29 weeks) (20.5 - 51.1) Baso Absolute 0.1 K/mcL 12/24/21 (29 weeks) (0.0 - 0.2) RDW-CV 12.4 % 12/24/21 (29 weeks) (11.5 - 14.5) Platelets 237 K/mcL [...] K/mcL 03/05/22 (39 weeks) (1.4 - 6.5) [place] Absolute (H) 1.0 K/mcL 03/05/22 (39 weeks) (0.1 - 0.6) Lymph Absolute 1.2 K/mcL 03/05/22 (39 weeks) (1.2 - 3.4) [place] Auto 6.9 % 03/05/22 (39 weeks) (1.7 [...] Reactive 03/05/22 (39 weeks) Non Reactive INDIO ODONNELL: [birth year] Actions No Actions have been documented. INDIO ODONNELL: [birth year] Situational Awareness No comments have been documented. INDIO ODONNELL : [birth year] Allergies (Active and Proposed [...] N/A, Once Status: Completed Ordered: 03/06/22 Provider: Monica, Generated ePHEDrine 50 mg = 1 mL, N/A, Once Status: Completed Ordered: 03/05/22 Provider: Monica, Generated erythromycin ophthalmic 0.5% (erythromycin ophthalmic) 1 blossom, N/A, Once Status: Completed Ordered: 03/05/22 Provider: Monica Generated lidocaine 1% (lidocaine) 20 mL, N/A, Once Status: Completed Ordered: 03/05/22 Provider: RaymondUser, Generated metoclopramide 10 mg = 2 mL, N/A, Once Status: Completed Ordered: 03/05/22 Provider: DomainUser, Generated midazolam 2 mg = 2 mL, N/A, Once Status: Completed Ordered: 03/05/22 Provider: RaymondUser, Generated mineral oil 100% (mineral oil) 30 mL, N/A, Once Status: Completed Ordered: 03/05/22 Provider: DomainUser, Generated miSOPROStol (miSOPROStol 25 mcg (Quarter) Tab [LTTL]) 25 mcg = 0.25 tab, VAG, Once Status: Completed Ordered: 03/04/22 Provider: Elizabeth Desouza MD, FACOG miSOPROStol 100 mcg = 1 tab, N/A, Once Status: Completed Ordered: 03/04/22 Provider: RaymondUser, Generated miSOPROStol (miSOPROStol 50 mcg (Half) Tab [LTTL]) 50 mcg = 0.5 tab, VAG, Once Status: Completed Ordered: 03/04/22 Provider: Elizabeth Desouza MD, FACOG miSOPROStol 1,000 mcg = 5 tab, N/A, Once Status: Completed Ordered: 03/05/22 Provider: RaymondUser, Generated morphine 10 mg = 1 mL, N/A, Once Status: Completed Ordered: 03/04/22 Provider: RaymondUser, Generated morphine (Morphine 10 mg/mL Inj 1 ml [LTTL]) 10 mg = 1 mL, IM, Once Status: Completed Ordered: 03/04/22 Provider: Elizabeth Desouza MD, FACOG multivitamin (multivitamin, ) 1 tab, N/A, Once Status: Completed Ordered: 03/06/22 Provider: RaymondUser, Generated NIFEdipine 10 mg = 1 cap, N/A, Once Status: Completed Ordered: 02/07/22 Provider: RaymondUser, Generated NIFEdipine (NIFEdipine 10 mg Cap [LTTL]) [...] Status: Completed Ordered: 03/05/22 Provider: RaymondUser, Generated Phenergan (Promethazine 25 mg/mL Inj 1 mL Vial [LTTL]) 25 mg = 1 mL, IM, Once Status: Completed Ordered: 03/04/22 Provider: Elizabeth Desouza MD, ETHAN promethazine 25 mg = 1 mL, N/A, [...] 10 mL, IV Flush, As Directed, PRN: pipeline operator Status: Discontinued Ordered: 03/17/22 Provider: Roel Osborne [...] Discontinued Ordered: 03/06/22 Provider: Elizabeth Desouza MD, ETHAN Sodium Chloride 0.9% 1,000 mL 999 mL/hr, Hydration Bolus, Stop: 03/17/22 3:04:00 EST Status: Discontinued Ordered: 03/17/22 Provider: Roel Osborne DO Sodium Chloride 0.9% 1,000 mL 125 mL/hr, IV Status: Discontinued Ordered: 03/17/22 Provider: Roel Osborne DO sodium citrate-citric acid (Citric Acid-Sodium Citrate Oral Yael 30mL [LTTL]) 30 mL, Oral, Once Status: Discontinued Ordered: 03/05/22 Provider: Elizabeth Desouza MD, ETHAN triamcinolone 0.025% topical cream (Trimancinolone Acet 0.025% Top Crm 15 g [LTTL]) 1 blossom, Topical, every 6 hr, PRN: itching Status: Discontinued Ordered: 03/06/22 Provider: Elizabeth Desouza MD, ETHAN INDIO ODONNELL : [birth year] Immunizations No immunizations have been administered or recorded as given INDIO ODONNELL : [birth year] Menstrual History Last Recorded Menstrual Period: 05/23/2021 Last Menstrual Period Description: -- Menarche Onset: -- Menarche Frequency: -- Menarche Length: 7 days Date of Menses Prior to LMP: -- On Hormonal Contracept within 2 months of LMP: -- Date of Home Test: -- Comments: -- INDIO ODONNELL : [birth year] History (0,0,0,0) No previous [...] Patient Safety Assessment Safety Assessment INDIO ODONNELL DOB: [birth year] Infection History Infection history negative or [...] Plan: -- Written Plan Location: -- Support Person/Mental Tester Relationship to Pt: Mother Oral Intake OB: -- Labor Preferences: -- Non-Medicinal Pain Relief: -- Anesthesia/Pain Medication During Labor: -- Delivery Plan: -- Infant Feeding: Exclusive breast milk Circumcision: -- Baby For Adoption: -- Patient Requests: -- Father of the Baby's Name: -- Crime Lab Technician Selected: -- Surrogate : -- Support Person's [...] Sho Devine) Lochia Changes: Verbalizes understanding (03/05/22 - Sho Devine) Nutrition Counseling: Verbalizes understanding (03/05/22 - Sho Devine) Pain Management: Verbalizes understanding (03/05/22 - Sho Devine) Postoperative Instructions: Verbalizes understanding (03/05/22 - Sho Devine) Depression: Verbalizes understanding (03/05/22 - Sho Devine) Safety: Verbalizes understanding (03/05/22 - Sho Devine) Safety, Fall: Verbalizes understanding (03/05/22 - Sho Devine) INDIO ODONNELL : [birth year] Registration and Information Race: White Ethnicity: Not , , or Japanese Origin Marital Status: Single Language(s): Welsh Orthodox Preference(s): Nondenominational Occupation/Education: Address, Phone, and Health Plans Home Address: [address] [place] [phone] (Home), --, -- Health Plans: 1 - [facility] Member/Group: [id number] Deductible: $ -- Type: [place] Address: [address], [place], [place] [id number] 2 - SELF PAY Member/Group: -- Deductible: $ -- Type: Self Pay Address: [address] [address], [place] [address] Phone: -- General Information OB Provider(s) Information: Not explicitly recorded. May be noted in encounter section below. See below for detailed information for all visits and information. Delivery Center/Hospital Information: -- Provider Information: -- Referring Provider Information: Elizabeth Desouza MD, [facility] Primary Provider Information: BENNY NIX /Partner Information: -- -- Support Person Information: Colten (Mother) Planned/Unplanned : -- Date Consent Signed for Tubal Ligation: -- Date Record Sent to Hospital: -- INDIO ODONNELL : [birth year] Visits and Encounters (Known encounters since 05/23/2021. May include lab encounters.) Date Location Provider Type Medical Service 04/08/2022 [facility] 03/25/2022 [facility] -- Clinic [facility] 03/17/2022 4 Roel Osborne DO Emergency Emergency Medicine 2022 Nika Desouza MD, [facility]patient [facility]patient 20[facility] 03/02/2022 5 Elizabeth Desouza MD, [facility] Clinic Clinic 02/23/2022 [facility] -- Clinic [facility] 02/21/2022 [facility] -- Clinic [facility] 02/21/2022 4 Filiberto Preciado Clinic Clinic 02/16/2022 [facility] Elizabeth Desouza MD, [facility] Outpatient Lab 02/16/2022 5 -- Clinic Clinic 02/09/2022 1 Dick Parker MD Clinic Clinic 02/07/2022 Nika Parker MD Outpatient in a Bed NST 01/25/2022 [facility] Amelie Clements, DRAFTING LAYOUT MAN [facility] 01/23/2022 A Elizabeth Desouza MD, FACOG Outpatient Observation 01/12/2022 4 Elizabeth Desouza MD, FACOG Clinic Clinic 01/04/2022 2 Amelie Clements, DRAFTING LAYOUT MAN Clinic Clinic 12/29/2021 [facility] Elizabeth Desouza MD, FACOG Outpatient Lab 12/24/2021 [facility] Elizabeth Desouza MD, FACOG Clinic Clinic 12/24/2021 [facility] Elizabeth Desouza MD, FACOG Outpatient Lab 12/03/2021 [facility] ED Gary Eric MD History ED Outpatient 11/02/2021 [facility] [id number] -LIVAN, ELIZABETH History Radiology 10/19/2021 [facility] [id number] -LIVAN, ELIZABETH [facility] Client Billing 09/08/2021 [facility] [id number] -LIVAN, ELIZABETH History Laboratory 08/11/2021 [facility] Amelie Clements, WENDI History Laboratory 06/28/2021 [facility] [id number] -LIVAN, ELIZABETH History Laboratory 06/25/2021 [facility] [id number] -LIVAN, ELIAZBETH History Laboratory 06/07/2021 [facility] ED Pierre Ferris MD History ED Outpatient INDIO ODONNELL : [birth year] Visit / Encounter Location Information The following information represents known location and contact information for locations visitedduring [facility] Business Address: [address] [place] [address] Phone:[phone] [employer] [facility] Business Address: [address] [place] [address] Phone: No phone numbers found on file [...] Malpresentation Cord Blood Sent to Lab: Yes Management Planner: Diann Monroy Maternal Delivery Complications: None Delivery Physician: Elizabeth Desouza MD, FACOG Information Risk Factors: Breech presentation Complications: None Umbilical Cord Description: 3 vessel cord Infant Data Gender: Female ID Band Number: [id number] Outcome: Live Security Tag Number: [id number] Weight: 3.56 kg Score 1 Minute: 9 Score 5 Minute: 9 Crime Lab Technician: Parker Mcnamara MD Note: Items documented with '--' had no clinical data which qualified at time of report creation END OF REPORT Emergency department Discharge instructions * MATT Conte: PERFORM Event Display: ED Discharge Information Authored Date: [id number] INDIO ODONNELL :1995 Age:27 years Sex:Female Visit Date:10/10/2022 Primary Care Physician: BENNY NIX Discharge Instructions We would like to thank you for allowing us to assist you with your healthcare needs. The following includes patient education materials and information regarding your injury/illness. Diagnosis from Today's Visit Viral upper respiratory infection Discharge Vitals Temperature??(Oral) 99.7 ??F (37.6 ??C) Heart Rate??(Peripheral) 100 Respiratory Rate?? 20 Blood Pressure?? 129/75?? Height?? 64.96 in (165.000 cm) Weight??(Estimated) 180.81 lb (82.00 kg) Allergies Aspartame??(Migraine) Aspir 81??(stomach pain, nausea, vomiting) aspirin??(Vomiting) What to Do Next You Need to Schedule the Following Appointments Follow Up with??Follow-up with your primary care When:??Within 1 week Why: Follow-up with your primary care as needed, they will be able to reevaluate if necessary Return to ED if concerns You were treated today on an emergency [...] What How Much When Instructions Next Dose New ondansetron (ondansetron 4 mg oral tablet, disintegrating) 1 tab Oral (given by mouth) 3 times a day Duration: 3 Days Pickup at [facility] New predniSONE (predniSONE 20 mg oral tablet) 2 tab Oral (given by mouth) Every day Duration: 4 Days Pickup at [facility] 268 Unchanged etonogestrel (Nexplanon) Unchanged FLUoxetine (FLUoxetine 20 mg oral tablet) 1 tab Oral (given by mouth) Every day Pharmacy Information [facility] 2681: [address] [place], [place] [phone] Education Materials Upper Respiratory Infection, Adult An upper respiratory infection (URI) is a common viral infection of the nose, throat, and upper airpassages that lead to the lungs. The most common type of URI is the common cold. URIs usually get better on their own, without medical treatment. What are the causes? A URI is caused by a virus. You may catch a virus by: ? Breathing in droplets from an infected person's cough or sneeze. ? Touching something that has been exposed to the virus (is contaminated) and then touching your mouth, nose, or eyes. What increases the risk? You are more likely to get a URI if: ? You are very young or very old. ? You have close contact with others, such as at work, school, or a health care facility. ? You smoke. ? You have long-term (chronic) heart or lung disease. ? You have a weakened disease-fighting system (immune system). ? You have nasal allergies or asthma. ? You are experiencing a lot of stress. ? You have poor nutrition. What are the signs or symptoms? A URI usually involves some of the following symptoms: ? Runny or stuffy (congested) nose. ? Cough. ? Sneezing. ? Sore throat. ? Headache. ? Fatigue. ? Fever. ? Loss of appetite. ? Pain in your forehead, behind your eyes, and over your cheekbones (sinus pain). ? Muscle aches. ? Redness or irritation of the eyes. ? Pressure in the ears or face. How is this diagnosed? This condition may be diagnosed based on your medical history and symptoms, and a physical exam. Your health care provider may use a swab to take a mucus sample from your nose (nasal swab). This sample can be tested to determine what virus is causing the illness. How is this treated? URIs usually get better on their own within 7???10 days. Medicines cannot cure URIs, but your health care provider may recommend certain medicines to help relieve symptoms, such as: ? Vdnx-ixp-jiwmfyi cold medicines. ? Cough suppressants. Coughing is a type of defense against infection that helps to clear the respiratory system, so take these medicines only as recommended by your health care provider. ? Fever-reducing medicines. Follow these instructions at home: Activity ? Rest as needed. ? If you have a fever, stay home from work or school until your fever is gone or until your health care provider says your URI cannot spread to other people (is no longer contagious). Your health care provider may have you wear a face mask to prevent your infection from spreading. Relieving symptoms ? Gargle with a mixture of salt and water 3???4 times a day or as needed. To make salt water, completely dissolve ?1 tsp (3???6 g) of salt in 1 cup (237 mL) of warm water. ? Use a cool-mist humidifier to add moisture to the air. This can help you breathe more easily. Eating and drinking ? Drink enough fluid to keep your urine pale yellow. ? Eat soups and other clear broths. General instructions ? Take tndp-uui-avuzgag and prescription medicines only as told by your health care provider. These include cold medicines, fever reducers, and cough suppressants. ? Do not use any products that contain nicotine or tobacco. These products include cigarettes, chewing tobacco, and vaping devices, such as e-cigarettes. If you need help quitting, ask your health careprovider. ? Stay away from secondhand smoke. ? Stay up to date on all immunizations, including the yearly (annual) flu vaccine. ? Keep all follow-up visits. This is important. How to prevent the spread of infection to others URIs can be contagious. To prevent the infection from spreading: ? Wash your hands with soap and water for at least 20 seconds. If soap and water are not available, use hand brush cutter. ? Avoid touching your mouth, face, eyes, or nose. ? Cough or sneeze into a tissue or your sleeve or elbow instead of into your hand or into the air. Contact a health care provider if: ? You are getting worse instead of better. ? You have a fever or chills. ? Your mucus is brown or red. ? You have yellow or brown discharge coming from your nose. ? You have pain in your face, especially when you bend forward. ? You have swollen neck glands. ? You have pain while swallowing. ? You have white areas in the back of your throat. Get help right away if: ? You have shortness of breath that gets worse. ? You have severe or persistent: ? Headache. ? Ear pain. ? Sinus pain. ? Chest pain. ? You have chronic lung disease along with any of the following: ? Making high-pitched whistling sounds when you breathe, most often when you breathe out (wheezing). ? Prolonged cough (more than 14 days). ? Coughing up blood. ? A change in your usual mucus. ? You have a stiff neck. ? You have changes in your: ? Vision. ? Hearing. ? Thinking. ? Mood. These symptoms may be an emergency. Get help right away. Call 911. ? Do not wait to see if the symptoms will go away. ? Do not drive yourself to the hospital. Summary ? An upper respiratory infection (URI) is a common infection of the nose, throat, and upper air passages that lead to the lungs. ? A URI is caused by a virus. ? URIs usually get better on their own within 7???10 days. ? Medicines cannot cure URIs, but your health care provider may recommend certain medicines to help relieve symptoms. This information is not intended to replace advice given to you by your health care provider. Make sure you discuss any questions you have with your health care provider. Document Revised: 09/22/2021 Document Reviewed: 09/22/2021 [employer] Patient Education ?? 2022 [employer] Cough, Adult Coughing is a reflex that clears your throat and your airways (respiratory system). Coughing helps to heal and protect your lungs. It is normal to cough occasionally, but a cough that happens with other symptoms or lasts a long time may be a sign of a condition that needs treatment. An acute cough may only last 2???3 weeks, while a chronic cough may last 8 or more weeks. Coughing is commonly caused by: ? Infection of the respiratory systemby viruses or bacteria. ? Breathing in substances that irritate your lungs. ? Allergies. ? Asthma. ? Mucus that runs down the back of your throat (postnasal drip). ? Smoking. ? Acid backing up from the stomach into the esophagus (gastroesophageal reflux). ? Certain medicines. ? Chronic lung problems. ? Other medical conditions such as heart failure or a blood clot in the lung (pulmonary embolism). Follow these instructions at home: Medicines ? Take asze-sju-lfcdujp and prescription medicines only as told by your health care provider. ? Talk with your health care provider before you take a cough suppressant medicine. Lifestyle ? Avoid cigarette smoke. Do not use any products that contain nicotine or tobacco, such as cigarettes, e-cigarettes, and chewing tobacco. If you need help quitting, ask your health care provider. ? Drink enough fluid to keep your urine pale yellow. ? Avoid caffeine. ? Do not drink alcohol if your health care provider tells you not to drink. General instructions ? Pay close attention to changes in your cough. Tell your health care provider about them. ? Always cover your mouth when you cough. ? Avoid things that make you cough, such as perfume, candles, cleaning products, or campfire or tobacco smoke. ? If the air is dry, use a cool mist vaporizer or humidifier in your bedroom or your home to help loosen secretions. ? If your cough is worse at night, try to sleep in a semi-upright position. ? Rest as needed. ? Keep all follow-up visits as told by your health care provider. This is important. Contact a health care provider if you: ? Have new symptoms. ? Cough up pus. ? Have a cough that does not get better after 2???3 weeks or gets worse. ? Cannot control your cough with cough suppressant medicines and you are losing sleep. ? Have pain that gets worse or pain that is not helped with medicine. ? Have a fever. ? Have unexplained weight loss. ? Have night sweats. Get help right away if: ? You cough up blood. ? You have difficulty breathing. ? Your heartbeat is very fast. These symptoms may represent a serious problem that is an emergency. Do not wait to see if the symptoms will go away. Get medical help right away. Call your local emergency services (911 in the [place] Do not drive yourself to the hospital. Summary ? Coughing is a reflex that clears your throat and your airways. It is normal to cough occasionally, but a cough that happens with other symptoms or lasts a long time may be a sign of a condition that needs treatment. ? Take kxnp-zwr-ctsfzrh and prescription medicines only as told by your health care provider. ? Always cover your mouth when you cough. ? Contact a health care provider if you have new symptoms or a cough that does not get better after 2???3 weeks or gets worse. This information is not intended to replace advice given to you by your health care provider. Make sure you discuss any questions you have with your health care provider. Document Revised: 03/11/2019 Document Reviewed: 03/11/2019 [employer] Patient Education ?? 2022 [employer] Tests Performed Radiology XR Chest 2 Views 10/10/2022 17:45 EDT Medications and Immunizations Administered Given ondansetron, 4 mg, Oral Patient/Salt Miner Signature Patient Name:ODONNELLINDIO I have received this information and my questions have been answered. Patient/Salt Miner Name: Patient/Salt [place]er Signature: Relationship to Patient: Witness Name/Signature: Date: Electronically Signed on: 10/10/2022 18:02 EDTSigned by:AB Patient Care team information Care Team Personnel Name: BENNY NIX Position: No Access Member Role: Primary Care Physician Address: Address: [facility] [address] [place] [address] Name: MATT Conte Position: Physician Member Role: Physician Health Promotion Educator Address: Address: [address] [place] [id number] Name: Ruthie Fiore Position: Nurse Member Role: ED Nurse Care Team Related Persons Name: COLTEN ODONNELL Address: Home [address] [place], [place] [phone] [facility] Name: COLTEN ODONNELL Address: Home [address] [place], [place] [id number] [facility]
--- OUTSIDE RECORDS SUMMARY | 2023-01-12 17:34 | XMS_ITS | Continuity of Care Document ---
Author Name Unknown Organization [facility] Ambulatory Clinics Address [address] [place] [address] Care Team Providers Care Loss Control Technician Name Role Phone BENNY NIX Primary Care Physician Unavailab le Encounter [facility] NBR [id number] Date(s): 03/02/22 - 03/02/22 [facility] Ambulatory Clinics [address] [place], [place] [address] Encounter Diagnosis 39 weeks gestation of (Discharge Diagnosis) - 03/02/22 Encounter for supervision of normal first in third trimester(Discharge Diagnosis) - 03/02/22 Discharge Disposition: Home or Self Care Attending Physician: Wyatt Desouza MD, FACOG Allergies, Adverse Reactions, Alerts Substance Reaction Severity Status Aspir 81 stomach pain, nausea, vomiting Severe Active Assessment and Plan Future Scheduled Tests Laboratory* Group B Strep ([facility]) 02/16/22 Functional Status 03/02/22 Recent Travel History No recent travel Other exposure to Infectious Disease Non e Medications Multi + DHA 0 Refill(s) Start [...] [Reference Range]: 1 Protein Urine Dipstick Trace (03/02/22 8:06 AM) Glucose Urine Dipstick Negative (03/02/22 8:06 AM) Vital Signs Most recent to oldest [Reference Range]: 1 Blood Pressure [90-140/60-90 mmHg] 124/7 6mmHg (03/02/22 8:06 AM) Weight 94.6 kg (03/02/22 8:06 AM) Pre- Weight 63.50 kg (03/02/22 8:06 AM) Cumulative Weight Gain 31 kg (03/02/22 8:06 AM) Height 165.1 cm (03/02/22 8:06 AM) Body Mass Index 34.71 kg/m2 (03/02/22 8:06 AM) Social History Social History Type Response Smoking Status Smoking tobacco use: Never tobacco user; Smoking tobacco use: Marijuana;Never entered on: 02/21/22 Sex Physician Outpatient Note * Wyatt Desouza MD, FACOG: PERFORM Event Display: Office Clinic Note Physician Authored Date: [id number] INDIO ODONNELL :1995 Age:26 years Sex:Female Visit Date:03/02/2022 Primary Care Physician: BENNY NIX YELENA/EGA Gestational Age (EGA) and YELENA? * Note: EGA calculated as of 03/02/2022 ?? YELENA:??03/06/2022?EGA*:??39 weeks 3 days ?Type:??Authoritative?Method Date:??08/11/2021 ?Method:??Ultrasound??(08/11/2021) ?Confirmation:??Confirmed ?Description:??-- ?Comments:??-- ?Entered by:??Roseanna Hathaway on 12/23/2021? Other YELENA Calculations for this : ?Method:??Last Menstrual Period ?Method Date:??05/23/2021 ?YELENA:??02/27/2022 ?EGA (At Entry):??30 weeks 5 days ?Type:??Non-Authoritative ?Comments:??-- ?Entered by:??Wyatt Desouza MD, FACOG on 12/24/2021 ?Method:??Ultrasound ?Method Date:??11/02/2021 ?YELENA:??03/09/2022 ?EGA (At Entry):??21 weeks 6 days ?Type:??Non-Authoritative ?Comments:??-- ?Entered by:??Roseanna Hathaway on 12/23/2021 Chief Complaint 39 weeks 3 days. Hives itchy on lower abdomen. History of Present Illness Skin rash abdomen.?? Hydrocortisone made it worse Physical Exam Vitals & Measurements BP:??124/76?? HT:??165.1??cm?? WT:??94.6??kg?? BMI:??34.71?? 40 cm uterus. Risk Factors No risk factors documented Assessment/Plan 1.??Encounter for supervision of normal first in third trimester??Z34.03 39 weeks gestation of ??Z3A.39 Cards Exam and Notes ?? Exams and Notes ?? Date:??03/02/22 EGA:??39w3d Weight (lbs kg):??*208... Fundal Height (cm):??-- ? Blood Pressure (mmHg):??124/76 ? Cervix Exam (Dil cm/Eff %/Sta -):--/--/--?? Labor S/S:?? Urine Glucose:??Negative Urine Protein:??Trace Next Visit:? Date:??02/21/22 EGA:??38w1d Weight (lbs kg):??*213... Fundal Height [...] of pelvic endometriosis (12/13/2018)???Umbilical hernia (2010) Medications Multi + DHA Allergies Aspir 81??(stomach pain, [...] Performed: 09/08/21 Rubella,Transcribed: Immune Electronically Signed on 03/02/22 12:47 PM Wyatt Desouza MD, [facility] Patient Care team information Personnel Name: BENNY NIX Address: Address: [facility] [address] [place], [place] [address]
--- OUTSIDE RECORDS SUMMARY | 2023-01-12 17:34 | XMS_ITS | Continuity of Care Document ---
Author Name Unknown Organization [facility] Ambulatory Clinics Address [address] [place] [address] Care Team Providers Care Chemical Dependency Professional Name Role Phone BENNY NIX Primary Care Physician Unavailab le Encounter [facility] NBR [id number] Date(s): 01/12/22 - 01/12/22 [facility] Ambulatory Clinics [address] [place], [place] [address] Encounter Diagnosis (Discharge Diagnosis) - 01/12/22 Abdominal pain in (Discharge Diagnosis) - 01/12/22 Unspecified abdominal pain(Discharge Diagnosis) - 01/12/22 Discharge Disposition: Home or Self Care Attending Physician: Wyatt Desouza MD, FACOG Allergies, Adverse Reactions, Alerts Substance Reaction Severity Status Aspir 81 stomach pain, nausea, vomiting Severe Active Assessment and Plan Future Appointments Appointment Date:01/25/2022 07:45:00 AM Scheduled Provider:mAelie Clements APRN Location:[facility] Appointment Type:OB Follow Up Appointment Date:02/09/2022 12:30:00 PM Scheduled Provider:Dick Parker MD Location:[facility] Appointment Type:OB Follow Up Appointment Date:02/16/2022 07:00:00 AM Scheduled Provider: Location:[facility] Appointment Type:OB Follow Up Appointment Date:02/23/2022 07:00:00 AM Scheduled Provider: Location:[facility] Appointment Type:OB Follow Up Appointment Date:03/02/2022 07:00:00 AM Scheduled Provider: Location:[facility] Appointment Type:OB Follow Up Functional Status 01/12/22 Recent Travel History No recent travel Other exposure to Infectious Disease Non e Medications Eucerin Eczema Relief 0 Refill(s) Start Date: 01/04/22 Status: Ordered Lotrimin AF 2% topical powder 1 blossom, Topical, BID, # 133 g, 1 Refill(s), Pharmacy: [facility], 165.1, cm, 12/24/21 9:11:00 EDT, Height/Length Dosing, 82.2, kg, 12/24/21 9:11:00 EDT, Weight Dosing Start Date: 01/04/22 Stop Date: 02/01/22 Status: Ordered miconazole 2% topical cream 1 blossom, Topical, BID, # 60 g, 1 Refill(s), Pharmacy: [facility], 165.1, cm, 12/24/21 9:11:00 EDT, [...] [Reference Range]: 1 Protein Urine Dipstick Negative (01/12/22 9:08 AM) Glucose Urine Dipstick Negative (01/12/22 9:08 AM) Vital Signs Most recent to oldest [Reference Range]: 1 Blood Pressure [90-140/60-90 mmHg] 124/7 2mmHg (01/12/22 9:08 AM) Weight 84.8 kg (01/12/22 9:08 AM) Pre- Weight 63.50 kg (01/12/22 9:08 AM) Height 165.10 cm (01/12/22 9:08 AM) Social History Social History Type Response Tobacco Never tobacco user, Marijuana Tobacco Use:. Sex Physician Outpatient Note * Wyatt Desouza MD, FACOG: PERFORM Event Display: Office Clinic Note Physician Authored Date: [id number] INDIO ODONNELL :1995 Age:26 years Sex:Female Visit Date:01/12/2022 Primary Care Physician: BENNY NIX YELENA/EGA Gestational Age (EGA) and YELENA? * Note: EGA calculated as of 01/12/2022 ?? YELENA:??03/06/2022?EGA*:??32 weeks 3 days ?Type:??Authoritative?Method Date:??08/11/2021 ?Method:??Ultrasound??(08/11/2021) ?Confirmation:??Confirmed ?Description:??-- ?Comments:??-- ?Entered by:??Roseanna Htahaway on 12/23/2021? Other YELENA Calculations for this : ?Method:??Last Menstrual Period ?Method Date:??05/23/2021 ?YELENA:??02/27/2022 ?EGA (At Entry):??30 weeks 5 days ?Type:??Non-Authoritative ?Comments:??-- ?Entered by:??Wyatt Desouza MD, FACOG on 12/24/2021 ?Method:??Ultrasound ?Method Date:??11/02/2021 ?YELENA:??03/09/2022 ?EGA (At Entry):??21 weeks 6 days ?Type:??Non-Authoritative ?Comments:??-- ?Entered by:??Roseanna Hathaway on 12/23/2021 Chief Complaint Pain umbilicus, nausea. Feels like she has increased swelling, RAMIREZ, bloody nose this AM. History of Present Illness As above. Physical Exam Vitals & Measurements BP:??124/72?? HT:??165.10??cm?? WT:??84.8??kg?? Right nares with ulcer distally and laterally. Neck supple.?? Pupils equal. Chest clear.?? Heart regular.?? Abdomen gravis above umbilicus. Good FH. Risk Factors No risk factors documented Assessment/Plan 1.?Z33.1 Fetus sounds okay 2.??Abdominal pain in ??O26.899 Unspecified abdominal pain??R10.9 No localizing sx and benign exam. Try symptomatic rx- heat, rest and call for bleeding or severe pain. Cards Exam and Notes ?? Exams and Notes ?? Date:??01/12/22 EGA:??32w3d Weight (lbs kg):??*186... Fundal Height [...] Chlamydia Date Performed: 09/08/21 Chlamydia, Transcribed: Negative Gonorrhea, Transcribed: Negative HIV Antibodies, Transcribed: Negative HIV Date Performed: 09/08/21 RPR Date Performed: 09/08/21 RPR, Transcribed: Negative Rubella Date Performed: 09/08/21 Rubella,Transcribed: Immune Electronically Signed on 01/12/22 02:54 PM Wyatt Desouza MD, [facility] Patient Care team information Care Team Personnel Name: BENNY NIX Position: No Access Member Role: Primary Care Physician Address: Address: [facility] [place] [address]- Care Team Related Persons Name: SHAVONNE ODONNELL Address: Home [address] [place], [place] [phone] [facility] Name: SHAVONNE ODONNELL Address: Home [address] [place], [place] [phone] [place]
--- OUTSIDE RECORDS SUMMARY | 2023-01-12 17:34 | XMS_ITS | Continuity of Care Document ---
Author Name Unknown Organization [facility] Ambulatory Clinics Address [address] [place] [address] Care Team Providers Care Director Patient Name Role Phone BENNY NIX Primary Care Physician Unavailab le Encounter [facility] NBR [id number] Date(s): 01/04/22 - 01/04/22 [facility] Ambulatory Clinics [address] [place] [address]- [place] Encounter Diagnosis Encounter for supervision of normal first in third trimester(Discharge Diagnosis) - 01/04/22 Discharge Disposition: Home or Self Care Attending Physician: Amelie Clements APRN Allergies, Adverse Reactions, Alerts Substance Reaction Severity Status Aspir 81 stomach pain, nausea, vomiting Severe Active Assessment and Plan Future Appointments Appointment Date:01/21/2022 02:00:00 PM Scheduled Provider: Location:[facility] Appointment Type:OB Follow Up Functional Status 01/04/22 Other exposure to Infectious Disease Non e Medications Eucerin Eczema Relief 0 Refill(s) Start Date: 01/04/22 Status: Ordered Lotrimin AF 2% topical powder 1 blossom, Topical, BID, # 133 g, 1 Refill(s), Pharmacy: [id number], 165.1, cm, 12/24/21 9:11:00 EDT, Height/Length Dosing, 82.2, kg, 12/24/21 9:11:00 EDT, Weight Dosing Start Date: 01/04/22 Stop Date: 02/01/22 Status: Ordered miconazole 2% topical cream 1 blossom, Topical, BID, # 60 g, 1 Refill(s), Pharmacy: [facility], 165.1, cm, 12/24/21 9:11:00 EDT, [...] [Reference Range]: 1 Protein Urine Dipstick Trace (01/04/22 9:08 AM) Glucose Urine Dipstick Negative (01/04/22 9:08 AM) Urine Color Urine Dipstick Yellow (01/04/22 9:08 AM) Urine Appearance Urine Dipstick Slightly cloudy (01/04/22 9:08 AM) Vital Signs Most recent to oldest [Reference Range]: 1 2 Blood Pressure [90-140/60-90 mmHg] 120/6 2mmHg (01/04/22 9:08 AM) Weight 83.9 kg (01/04/22 9:08 AM) Weight Measured (lbs) 184.968 lb (01/04/22 9:08 AM) [place] Body Weight Calculated 57 kg (01/04/22 9:08 AM) Pre- Weight 63.50 kg (01/04/22 9:08 AM) Cumulative Weight Gain 20 kg (01/04/22 9:08 AM) Height 165.10 cm (01/04/22 9:08 AM) Height/Length Measured (inches) 65 inch (01/04/22 9:08 AM) BSA Measured 1.96 m2 (01/04/22 9:08 AM) Body Mass Index 30.78 kg/m2 (01/04/22 9:08 AM) 30.78 kg/m2 (01/04/22 9:08 AM) Social History Social History Type Response Tobacco Never tobacco user, Marijuana Tobacco Use:. Sex Patient Care team information Personnel Name: STACY NIXRICIA Address: Address: [facility] [address] [place], [place] [address]
--- OUTSIDE RECORDS SUMMARY | 2023-01-12 17:34 | XMS_ITS | Continuity of Care Document ---
Author Name Unknown Organization [facility] Ambulatory Clinics Address [address] [place] [address] Care Team Providers Care Public Administration Teacher Name Role Phone BENNY NIX Primary Care Physician Unavailab le Encounter [facility] NBR [id number] Date(s): 12/24/21 - 12/24/21 [facility] Ambulatory [facility] [address] [place] [address] Encounter Diagnosis Encounter for prophylactic administration of RhoGAM(Discharge Diagnosis) - 12/24/21 with 28 completed weeks gestation(Discharge Diagnosis) - 12/24/21 Discharge Disposition: Home or Self Care Attending Physician: Dr. Wyatt Desouza MD, FACOG Allergies, Adverse Reactions, Alerts Substance Reaction Severity Status Aspir 81 stomach pain, nausea, vomiting Severe Active Assessment and Plan Future Appointments Appointment Date:01/21/2022 02:00:00 PM Scheduled Provider: Location:[facility] Appointment Type:OB Follow Up Functional Status 12/24/21 Recent Travel History No recent travel Other exposure to Infectious Disease Non e Medications Multi + DHA 0 Refill(s) Start Date: 12/24/21 Status: Ordered Proctosol-HC 2.5% topical cream BID, 1 Unknown, 0 Refill(s) Start Date: 12/24/21 Status: Ordered Problem List Condition Confirmation Course Effective Dates Status H ealth Status Informant Endometriosis Confirmed Active Depression with [...] [Reference Range]: 1 Protein Urine Dipstick Negative (12/24/21 9:11 AM) Glucose Urine Dipstick 50 mg/dl (12/24/21 9:11 AM) Vital Signs Most recent to oldest [Reference Range]: 1 2 Blood Pressure [90-140/60-90 mmHg] 112/6 4mmHg (12/24/21 9:11 AM) Weight 82.2 kg (12/24/21 9:11 AM) Weight Measured (lbs) 181.22 lb (12/24/21 9:11 AM) Weight Dosing 82.2 kg (12/24/21 9:11 AM) [place] Body Weight Calculated 57 kg (12/24/21 9:11 AM) Pre- Weight 63.50 kg (12/24/21 9:11 AM) Cumulative Weight Gain 19 kg (12/24/21 9:11 AM) Height 165.10 cm (12/24/21 9:11 AM) Height/Length Measured (inches) 65 inch (12/24/21 9:11 AM) Height/Length Dosing 165.10 cm (12/24/21 9:11 AM) BSA Measured 1.94 m2 (12/24/21 9:11 AM) Body Mass Index 30.16 kg/m2 (12/24/21 9:11 AM) 30.16 kg/m2 (12/24/21 9:11 AM) Social History Social History Type Response Tobacco Never tobacco user, Marijuana Tobacco Use:. Sex Patient Care team information Personnel Name: BENNY NIX Address: Address: [facility] [address] [place], [address]
--- OUTSIDE RECORDS SUMMARY | 2023-01-12 17:34 | XMS_ITS | Continuity of Care Document ---
Author Name Unknown Organization [facility] Ambulatory Clinics Address [address] [place] [address] Care Team Providers Care Supervisor Travel Information Center Name Role Phone BENNY NIX Primary Care Physician Unavailab le Encounter [facility] NBR [id number] Date(s): 08/12/22 - 08/12/22 [facility] Ambulatory Clin[facility] [address] [place] [address]- [place] Discharge Disposition: Home or Self Care Attending Physician: Elizabeth Desouza MD, FACOG Referring Physician: Elizabeth Desouza MD, FACOG Allergies, Adverse Reactions, Alerts Substance Reaction Severity Status Aspir 81 stomach pain, nausea, vomiting Severe Active Aspartame Migraine Severe Active Assessment and Plan Future Scheduled Tests Laboratory* Group B Strep (GeneXpert) 02/16/22 Functional Status 08/12/22 Living Environment Home Environment No qualifying data available Other exposure to Infectious Disease Non e Medications FLUoxetine 20 mg oral tablet 20 mg = 1 tab, Oral, Daily, # 30 tab, 6 Refill(s), Pharmacy: [id number], 165, cm, 03/17/22 1:54:00 EST, Height/Length Dosing, 82, kg, 03/17/22 1:54:00 EST, Weight Dosing Start Date: 08/12/22 Status: Ordered Nexplanon 0 Refill(s) Start Date: 08/12/22 Status: Ordered Problem List Condition Confirmation Course [...] [Reference Range]: 1 Blood Pressure [90-140/60-90 mmHg] 138/8 2mmHg (08/12/22 10:16 AM) Weight 89.4 kg (08/12/22 10:16 AM) Weight Measured (lbs) 197.093 lb (08/12/22 10:16 AM) [place] Body Weight Calculated 57 kg (08/12/22 10:16 AM) Height 165.10 cm (08/12/22 10:16 AM) Height/Length Measured (inches) 65 inch (08/12/22 10:16 AM) BSA Measured 2.02 m2 (08/12/22 10:16 AM) Body Mass Index 32.8 kg/m2 (08/12/22 10:16 AM) Social History Social History Type Response Smoking Status Smoking tobacco use: Never tobacco user; Smoking tobacco use: Marijuana;Never entered on: 02/21/22 Sex Female summary Document * Event Display: Summary Document Authored Date: [id number] INDIO ODONNELL : 1995 Age: 27 Years [...] [birth year] Problems (Active Problems Only) (SNOMED CT: 890823288, Onset: 05/23/21) Rh negative (SNOMED CT: 800861772, Onset: --) Scoliosis deformity of spine (SNOMED CT: 866100662, Onset: --) Mixed anxiety and depressive disorder (SNOMED CT: 500681047, Onset: --) Endometriosis (clinical) (SNOMED CT: 209237460, Onset: --) Patient encounter status (SNOMED CT: 434825649, Onset: --) Abnormal glucose tolerance test during - baby not yet delivered (SNOMED CT: 8788316235, Onset: --) Normal (SNOMED CT: 965582041, Onset: --) INDIO ODONNELL DOB: [birth year] Risk Factors and Genetic Screening All [...] per patient 01/04/2022 Present per patient INDIO ODONNELL: [birth year] Physical Exams Physical Exam Mental Status [...] Color: Normal for ethnicity (03/17/22) Skin Description: Topaz, Dry (03/17/22) Skin Temperature: Warm (03/17/22) Skin Turgor: Elastic (03/07/22) Skin Moisture General: Dry (03/07/22) Skin Integrity: Intact, no abnormalities (03/05/22) Mucous Membrane Color: Topaz (03/07/22) Mucous Membrane Description: Moist, Intact (03/07/22) INDIO ODONNELL : [birth year] Blood Types and Anti-D [...] % 12/24/21 (29 weeks) (0.0 - 0.5) [place] Absolute (H) 0.7 K/mcL 12/24/21 ( weeks) (0.1 - 0.6) Basophil Auto (H) 0.6 % 12/24/21 ( weeks) (0.0 - 0.2) Neutro Absolute (H) 7.7 K/mcL 12/24/21 ( weeks) (1.4 - 6.5) [place] Auto 7.2 % 12/24/21 ( weeks) (1.7 [...] K/mcL 03/05/22 (39 weeks) (1.4 - 6.5) [place] Absolute (H) 1.0 K/mcL 03/05/22 (39 weeks) (0.1 - 0.6) Lymph Absolute 1.2 K/mcL 03/05/22 (39 weeks) (1.2 - 3.4) [place] Auto 6.9 % 03/05/22 (39 weeks) (1.7 [...] No Actions have been documented. INDIO ODONNELL : [birth year] Situational Awareness No comments have been [...] Status: Completed Ordered: 03/05/22 Provider: Monica, Generated dexamethasone 10 mg = 1 mL, [...] Ordered: 03/04/22 Provider: Elizabeth Desouza MD, [facility] miSOPROStol 100 mcg = 1 tab, N/A, Once Status: Completed Ordered: 03/04/22 Provider: DomainUser, Generated miSOPROStol (miSOPROStol 50 mcg (Half) Tab [LTTL]) 50 mcg = 0.5 tab, VAG, Once Status: Completed Ordered: 03/04/22 Provider: Elizabeth Desouza MD, [facility] miSOPROStol 1,000 mcg = 5 tab, N/A, Once Status: Completed Ordered: 03/05/22 Provider: DomainUser, Generated morphine 10 mg = 1 mL, N/A, Once Status: Completed Ordered: 03/04/22 Provider: DomainUser, Generated morphine (Morphine 10 mg/mL Inj 1 ml [LTTL]) 10 mg = 1 mL, IM, Once Status: Completed Ordered: 03/04/22 Provider: Elizabeth Desouza MD, RIKYOG multivitamin (multivitamin, ) 1 tab, N/A, Once [...] mild Status: Discontinued Ordered: 03/05/22 Provider: Elizabeth Dseouza MD, FACOG acetaminophen 1,000 mg = 100 [...] 10 mL, IV Flush, As Directed, PRN: personal lines account manager Status: Discontinued Ordered: 03/17/22 Provider: Roel Osborne [...] Provider: Elizabeth Desouza MD, FACOG INDIO ODONNELL : [birth year] Immunizations No immunizations [...] hernia Age: 15 Years Date: 2009 INDIO ODONNELL: [birth year] Social & Psychosocial History Social History Home/Environment Lives with Mother. Living situation: Home/Independent. Sexual Sexually active: Yes. Substance Abuse Current, Marijuana, Daily Comment: About a bowl/day (02/21/2022 14:10 - Erica Flores) Tobacco Never tobacco user, Marijuana Tobacco Use:. Never Smokeless Tobacco use:. Electronic Cigarette/Vaping Electronic Cigarette Use: Never. Psychosocial History Family/Social Father of Baby Involved: No Patient Safety Assessment Safety Assessment INDIO ODONNELL: [birth year] Infection History Infection history negative or not recorded INDIO ODONNELL: [birth year] Anesthesia and Transfusions Prior Anesthesia or Transfusion Received: Prior general anesthesia, No prior transfusion Prior Anesthesia Reaction(s): Vomiting, Other: Difficulty waking up Prior Transfusion Reaction(s): -- Blood Transfusion Acceptable to Patient: -- INDIO ODONNELL DOB: [birth year] Plan and Patient Requests Desired Delivery Location: -- Education: -- Written Plan: -- Written Plan Location: -- Support Person/Picker Tender Helper Relationship to Pt: Mother Oral Intake OB: -- Labor Preferences: -- Non-Medicinal Pain Relief: -- Anesthesia/Pain Medication During Labor: -- Delivery Plan: -- Feeding: Exclusive breast milk Circumcision: -- Baby For Adoption: -- Patient Requests: -- Father of the Baby's Name: -- Game Advisor Selected: -- Surrogate : -- Support Person's [...] Sho Devine) Nutrition Counseling: Verbalizes understanding (03/05/22 Sho Nolan) Pain Management: Verbalizes understanding (03/05/22 Sho Nolan) Postoperative Instructions: Verbalizes understanding (03/05/22 - Sho Devine) Depression: Verbalizes understanding (03/05/22 Sho Nolan) Safety: Verbalizes understanding (03/05/22 Sho Nolan) Safety, Fall: Verbalizes understanding (03/05/22 - Sho Devine) INDIO ODONNELL : [birth year] Registration and Information Race: White Ethnicity: Not , , or Solomon Islander Origin Marital Status: Single Language(s): Wolof Pentec[employer]alism Preference(s): Worship Occupation/Education: Address, Phone, and Health Plans Home Address: [address] [place] [phone] (Home), --, -- Health Plans: 1 - [facility] Member/Group: [id number] Deductible: $ -- Type: [facility] Address: [address], [place], [place] [id number] 2 - SELF PAY Member/Group: -- Deductible: $ -- Type: Self Pay Address: [address] [address], [place] [address] Phone: -- General Information OB Provider(s) Information: Not explicitly recorded. May be noted in encounter section below. See below for detailed information for all visits and information. Delivery Center/Hospital Information: -- [facility] Provider Information: -- Referring Provider Information: Elizabeth Desouza MD, [facility] Primary Provider Information: BENNY NIX /Partner Information: -- -- Support Person Information: Col[place] (Mother) Planned/Unplanned : -- Date Consent Signed for Tubal Ligation: -- Date Record Sent to Hospital: -- INDIO ODONNELL : [birth year] Visits and Encounters (Known encounters since 05/23/2021. May include lab encounters.) Date Location Provider Type Medical Service 04/08/2022 [facility] -- Clinic Preadmit Clinic 03/25/2022 [facility] -- Clinic Preadmit Clinic 03/17/2022 4 Roel Osborne DO Emergency Emergency Medicine 2022 Nika Desouza MD, [facility] Inpatient Inpatient 2022 A Elizabeth Desouza MD, [facility] Observation Observation 03/02/2022 5 Elizabeth Desouza MD, FACOG Clinic Clinic 02/23/2022 [facility] -- Clinic Preadmit Clinic 02/21/2022 [facility] -- Clinic Preadmit Clinic 02/21/2022 4 Filiberto Preciado Clinic Clinic 02/16/2022 [facility] Elizabeth Desouza MD, FACOG Outpatient Lab 02/16/2022 5 -- Clinic Clinic 02/09/2022 1 Dick Parker MD Clinic Clinic 02/07/2022 A Dick Parker MD Outpatient in a Bed NST 01/25/2022 [facility] Amelie Clements, BACTERIOLOGIST FOOD Preadmit Clinic 01/23/2022 A Elizabeth Desouza MD, FACOG Outpatient Observation 01/12/2022 4 Elizabeth Desouza MD, FACOG Clinic Clinic 01/04/2022 2 Amelie Clements, BACTERIOLOGIST FOOD Clinic Clinic 12/29/2021 [facility] Elizabeth Desouza MD, FACOG Outpatient Lab 12/24/2021 [facility] Elizabeth Desouza MD, FACOG Clinic Clinic 12/24/2021 [facility] Elizabeth Desouza MD, FACOG Outpatient Lab 12/03/2021 [facility] ED Gary Eric MD History ED Outpatient 11/02/2021 [facility]-DiagnostIMG [id number] -LIVAN, ELIZABETH History Radiology 10/19/2021 [facility] [id number] -LIVAN, ELIZABETH History Client Billing 09/08/2021 [facility] [id number] -LIVAN, ELIZABETH History Laboratory 08/11/2021 [facility] Amelie Clements, BACTERIOLOGIST FOOD History Laboratory 06/28/2021 [facility] [id number] -LIVAN, ELIZABETH History Laboratory 06/25/2021 [facility] [id number] -LIVAN, ELIZABETH History Laboratory 06/07/2021 [facility] ED Pierre Ferris MD History ED Outpatient INDIO ODONNELL : [birth year] Visit / Encounter Location Information The following information represents known location and contact information for locations visitedduring [facility] Ambulatory Clinics Business Address: [address] [place] [address] Phone:[phone] [employer] Business Address: [address] [place] [address] Phone: No phone numbers found on file [...] Malpresentation Cord Blood Sent to Lab: Yes Icer Hand: Diann Monroy Maternal Delivery Complications: None Delivery Physician: Elizabeth Desouza MD, FACOG Information Risk Factors: Breech presentation Complications: None Umbilical Cord Description: 3 vessel cord Infant Data Gender: Female ID Band Number: [id number] Outcome: Live Security Tag Number: [id number] Weight: 3.56 kg Score 1 Minute: 9 Score 5 Minute: 9 Game Advisor: Parker Mcnamara MD Note: Items documented with '--' had no clinical data which qualified at time of report creation END OF REPORT Patient Care team information Care Team Personnel Name: BENNY NIX Position: No Access Member Role: Primary Care Physician Address: Address: [facility] [place] [address] [place] [address]- Care Team Related Persons Name: COLTEN ODONNELL Address: Home [address] [place], [place] [id number] [facility] Name: COLTEN ODONNELL Address: Home [address] [place], [place] [id number] [facility]
--- OUTSIDE RECORDS SUMMARY | 2023-01-12 17:34 | XMS_ITS | Continuity of Care Document ---
Author Name Unknown Organization [facility] Ambulatory Clinics Address [address] [place] [address] Care Team Providers Care Cable Driller Name Role Phone BENNY NIX Primary Care Physician Unavailab le Encounter [facility] NBR [id number] Date(s): 02/16/22 - 02/16/22 [facility] Ambulatory Clinics [address] [place] [address] us Encounter Diagnosis Encounter for screening(Discharge Diagnosis) - 02/16/22 37 weeks gestation of (Discharge Diagnosis) - 02/16/22 Discharge Disposition: Home or Self Care Allergies, Adverse Reactions, Alerts Substance Reaction Severity Status Aspir 81 stomach pain, nausea, vomiting Severe Active Assessment and Plan Future Appointments Appointment Date:02/23/2022 07:00:00 AM Scheduled Provider: Location:[facility] Appointment Type:OB Follow Up Appointment Date:03/02/2022 07:00:00 AM Scheduled Provider: Location:[facility] Appointment Type:OB Follow Up Future Scheduled Tests Laboratory* Group B Strep (GeneXpert) 02/16/22 Functional Status 02/16/22 Recent Travel History No recent travel Other exposure to Infectious Disease Non e Medications Lotrimin AF 2% topical powder 1 blossom, Topical, BID, # 133 g, 1 Refill(s), Pharmacy: [id number], 165.1, cm, 12/24/21 9:11:00 [...] [Reference Range]: 1 Protein Urine Dipstick Negative (02/16/22 8:01 AM) Glucose Urine Dipstick Negative (02/16/22 8:01 AM) Vital Signs Most recent to oldest [Reference Range]: 1 Blood Pressure [90-140/60-90 mmHg] 126/8 0mmHg (02/16/22 8:01 AM) Weight 97.1 kg (02/16/22 8:01 AM) Pre- Weight 63.50 kg (02/16/22 8:01 AM) Cumulative Weight Gain 34 kg (02/16/22 8:01 AM) Height 165.1 cm (02/16/22 8:01 AM) Body Mass Index 35.62 kg/m2 (02/16/22 8:01 AM) Social History Social History Type Response Tobacco Never tobacco user, Marijuana Tobacco Use:. Sex Hospital Discharge Instructions Follow Up Care 01/12/2022 09:47:47 With:Wyatt Desouza MD, FACOG Address: [address] [place] [id number] When: Unknown Physician Outpatient Note * Wyatt Desouza MD, FACOG: PERFORM Event Display: Office Clinic Note Physician Authored Date: [id number] INDIO ODONNELL :1995 Age:26 years Sex:Female Visit Date:02/16/2022 Primary Care Physician: BENNY NIX YELENA/EGA Gestational Age (EGA) and YELENA? * Note: EGA calculated as of 02/16/2022 ?? YELENA:??03/06/2022?EGA*:??37 weeks 3 days ?Type:??Authoritative?Method Date:??08/11/2021 ?Method:??Ultrasound??(08/11/2021) ?Confirmation:??Confirmed ?Description:??-- ?Comments:??-- ?Entered by:??Roseanna Hathaway on 12/23/2021? Other YELENA Calculations for this : ?Method:??Last Menstrual Period ?Method Date:??05/23/2021 ?YELENA:??02/27/2022 ?EGA (At Entry):??30 weeks 5 days ?Type:??Non-Authoritative ?Comments:??-- ?Entered by:??Wyatt Desouza MD, FACOG on 12/24/2021 ?Method:??Ultrasound ?Method Date:??11/02/2021 ?YELENA:??03/09/2022 ?EGA (At Entry):??21 weeks 6 days ?Type:??Non-Authoritative ?Comments:??-- ?Entered by:??Roseanna Hathaway on 12/23/2021 Chief Complaint 37 weeks 3 days. GBS today. History of Present Illness Trouble standing at work- support hose don't fit and swelling in legs. Physical Exam Vitals & Measurements BP:??126/80?? HT:??165.1??cm?? WT:??97.1??kg?? BMI:??35.62?? 3+ edema. EFW 7#. Unfavorable cervix Risk Factors No risk factors documented Assessment/Plan 1.??37 weeks gestation of ??Z3A.01 ?? 2.??Encounter for screening??Z36.9 GBS done.?? Ordered: Group B Strep (GeneXpert), Swab, Routine Collect, 02/16/22 8:13:00 EST, Once, Nurse collect, Print Label, Encounter for screening Group B Strep (GeneXpert), Swab, Routine Collect, 02/16/22, Once, Nurse collect, Print Label, Encounter for screening, Order for future visit ?? Cards Exam and Notes ?? Exams and Notes ?? Date:??02/16/22 EGA:??37w3d Weight (lbs kg):??*214... Fundal Height [...] ? Movement:??Present per patient ?Presentation:??-- ? Date:??02/07/22 EGA:??36w2d Weight (lbs kg):??*186... Fundal Height (cm):??-- ? [...] Performed: 09/08/21 Rubella,Transcribed: Immune Electronically Signed on 02/16/22 08:41 AM Wyatt Desouza MD, [facility] [place] [facility] Patient Care team information Personnel Name: BENNY NIX Address: Address: [facility] [address] [place], [place] [address]
--- OUTSIDE RECORDS SUMMARY | 2023-01-12 17:34 | XMS_ITS | Continuity of Care Document ---
Author Name Unknown Organization [facility] Address [address] [place] [address] Care Team Providers Care Community Service Officer Name Role Phone BENNY NIX Primary Care Physician Unavailab le Encounter LTTL_SD FIN NBR [id number] Date(s): 03/04/22 - 03/08/22 [facility] [address] [place] [address]- [place] Encounter Diagnosis exam(Discharge Diagnosis) - 03/06/22 39 weeks gestation of (Discharge Diagnosis) - 03/04/22 Breech presentation(Discharge Diagnosis) - 03/05/22 Discharge Disposition: Home f/u Internal Provider Attending Physician: Wyatt Desouza MD, FACOG Admitting Physician: Wyatt Desouza MD, FACOG Referring Physician: Wyatt Desouza MD, FACOG Allergies, Adverse Reactions, Alerts Substance Reaction Severity Status Aspir 81 stomach pain, nausea, vomiting Severe Active Assessment and Plan Future Appointments Future Scheduled Tests Laboratory* Group B Strep ([facility]) 02/16/22 Functional Status 03/05/22 Verbalizes Home Medications Accurately Family Member Travel History No recent t ravel Recent Travel History No recent travel Other exposure to Infectious Disease Non e Medications Multivitamins 1 tab, Oral, Daily, 0 Refill(s) Start Date: 03/04/22 Status: Ordered Problem List Condition Confirmation Course [...] for hemorrhoids Results Laboratory List Name Date Hemoglobin and Hematocrit 03/06/22 Screen 03/06/22 Rhogam 03/06/22 Automated Diff 03/05/22 ABO/Rh Echo 03/05/22 ABSC Echo (Antibody Screen Echo) 2 Antibody ID 03/05/22 CBC w/ Diff 03/05/22 Glucose Level 03/05/22 Hgb A1c 03/05/22 Syphilis Abs Qual 03/05/22 Most recent to oldest [Reference Range]: 1 2 WBC [4.8-10.8 K/mcL] 14.5 K/mcL *HI* (03/05/22 8:10 AM) RBC [4.20-6.10 Million/mcL] 3.74 Million /mcL *LOW* (03/05/22 8:10 AM) Neutro Auto [42.2-75.2 %] 82.3 % *HI* (03/05/22 8:10 AM) Lymph Auto [20.5-51.1 %] 8.5 % *LOW* (03/05/22 8:10 AM) [place] Auto [1.7-9.3 %] 6.9 % (03/05/22 8:10 AM) Basophil Auto [0.0-0.8 %] 0.3 % (03/05/22 8:10 AM) Glucose Level [74-106 mg/dL] 89 mg/dL (03/05/22 8:10 AM) Baso Absolute [0.0-0.2 K/mcL] 0.0 K/mcL (03/05/22 8:10 AM) MCV [80.0-99.0 fL] 94.4 fL (03/05/22 8:10 AM) MCHC [32.0-36.0 g/dL] 34.8 g/dL (03/05/22 8:10 AM) Lymph Absolute [1.2-3.4 K/mcL] 1.2 K/mcL (03/05/22 8:10 AM) Hct [37.0-52.0 %] 30.6 % *LOW* (03/06/22 7:01 AM) 35.3 % *LOW* (03/05/22 8:10 AM) [place] Absolute [0.1-0.6 K/mcL] 1.0 K/mcL *HI* (03/05/22 8:10 AM) MCH [27.0-31.0 pg] 32.9 pg *HI* (03/05/22 8:10 AM) Neutro Absolute [1.4-6.5 K/mcL] 11.9 K/m cL *HI* (03/05/22 8:10 AM) Hgb [12.0-18.0 g/dL] 10.3 g/dL *LOW* (03/06/22 7:01 AM) 12.3 g/dL (03/05/22 8:10 AM) MPV [7.4-10.4 fL] 10.9 fL *HI* (03/05/22 8:10 AM) Platelets [130-400 K/mcL] 255 K/mcL (03/05/22 8:10 AM) Eos Absolute [0.0-0.2 K/mcL] 0.1 K/mcL (03/05/22 8:10 AM) Antibody ID Passive Anti-D *Unknown* (03/05/22 8:10 AM) eAvg Glucose 111 *NA* (03/05/22 8:10 AM) RDW-CV [11.5-14.5 %] 12.9 % (03/05/22 8:10 AM) Imm Gran Absolute 0.22 *NA* (03/05/22 8:10 AM) Imm Gran Auto [0.0-0.5 %] 1.5 % *HI* (03/05/22 8:10 AM) Rhogam Ready Done (03/06/22 6:00 AM) Hgb A1c Percent [4.0-6.0 %] 5.5 % (03/05/22 8:10 AM) .Hb 12.6 *NA* (03/05/22 8:10 AM) .Hgb A1c 0.46 *NA* (03/05/22 8:10 AM) Syphilis Abs Qual [Non Reactive] Non [place] ctive (03/05/22 8:10 AM) ABO/Rh Echo A NEG *Unknown* (03/05/22 8:10 AM) Eos, Auto [0.00-3.00 %] 0.50 % (03/05/22 8:10 AM) ABSC Echo Positive (03/05/22 8:10 AM) Screen Negative (03/06/22 6:00 AM) Vital Signs Most recent to oldest [Reference Range]: 1 2 3 Temperature Axillary [35.2-38 Deg C] 36.1 Deg C (03/06/22 8:09 AM) 36.7 Deg C (03/05/22 8:00 PM) 36.1 Deg C (03/05/22 3:34 PM) Temperature Temporal Artery [36-38 Deg C] 36.6 Deg C (03/08/22 9:40 AM) 37.1 Deg C (03/07/22 7:44 PM) 36.4 Deg C (03/07/22 7:15 AM) Temperature Temporal Artery (DegF) [97.3-100 Deg F] 97.88 Deg F (03/08/22 9:40 AM) 98.78 Deg F (03/07/22 7:44 PM) 97.52 Deg F (03/07/22 7:15 AM) Temperature Temporal [36.3-37.8 Deg C] 36.9 Deg C (03/04/22 8:20 PM) Apical Heart Rate [60-100 bpm] 90 bpm (03/05/22 7:45 AM) Heart Rate Monitored [60-100 bpm] 96 bpm (03/08/22 9:40 AM) 93 bpm (03/07/22 7:44 PM) 90 bpm (03/07/22 7:15 AM) Respiratory Rate [12-24 br/min] 18 br/min (03/08/22 9:40 AM) 19 br/min (03/07/22 7:44 PM) 18 br/min (03/07/22 7:15 AM) Blood Pressure [90-140/60-90 mmHg] 125/69mmHg (03/08/22 9:40 AM) 130/69mmHg (03/07/22 7:44 PM) 120/65mmHg (03/07/22 7:15 AM) Mean Arterial Pressure, Cuff [65-140 mmHg] 89 mmHg (03/07/22 7:44 PM) 83 mmHg (03/07/22 7:15 AM) 84 mmHg (03/06/22 7:57 PM) Blood Pressure Location Right arm (03/07/22 7:44 PM) Right arm (03/07/22 7:15 AM) Right arm (03/06/22 7:57 PM) Blood Pressure Method Automatic (03/07/22 7:44 PM) Automatic (03/07/22 7:15 AM) Automatic (03/06/22 7:57 PM) Weight 94.600 kg (03/05/22 7:45 AM) 94.600 kg (03/05/22 7:44 AM) 94.6 kg (03/04/22 9:05 PM) Weight Dosing 94.600 kg (03/05/22 7:45 AM) 94.600 kg (03/05/22 7:44 AM) Height 165.100 cm (03/05/22 7:45 AM) 165.100 cm (03/05/22 7:44 AM) 165.10 cm (03/04/22 9:05 PM) Height/Length Dosing 165.100 cm (03/05/22 7:45 AM) 165.100 cm (03/05/22 7:44 AM) Body Mass Index 34.710 kg/m2 (03/05/22 7:45 AM) 34.710 kg/m2 (03/05/22 7:44 AM) Social History Social History Type Response Smoking Status Smoking tobacco use: Never tobacco user; Smoking tobacco use: Marijuana;Never entered on: 02/21/22 Sex Hospital Discharge Instructions Patient Education 03/08/2022 10:49:37 Nathaniel [facility] Post Discharge Instructions(CUSTOM) Dr. Desouza's Post Discharge Instructions Going home after a Vaginal or delivery GENERAL: ??? You have just had a baby. It is normal to feel tired and worn out over the next several weeks. Sleep is difficult to get when you have a . We recommend sleeping when your baby sleeps if possible or asking someone to watch your so you can nap. ??? Some discomfort is expected after a vaginal delivery. Most times this discomfort can be adequately managed with rest, heat, Ibuprofen, and Tylenol. Occasionally a narcotic may be needed for breakthrough pain. If you begin to have pain that is not controlled with the medications you were sent home with or if you develop fever and chills, please give the office a call. ??? Vaginal bleeding is normal as your uterus works on returning to its normal size. While nursing your baby, your uterus may feel crampy and your bleeding may increase during these times. Passing some clots is normal. If bleeding increases over several hours and you soak through a pad or more an hour, we would want a call about that. ??? If you had a vaginal tear that required suturing these sutures will dissolve over the next three weeks. During this process you may notice some yellowish drainage that may have an odor. This is the suture material breaking down, and it is a normal process. Keep the tissue clean with your pericare bottle or by taking a bath. Tucks pads can also be helpful. If you have an incision on your abdomen these sutures will dissolve on their own over the next 2 to 3 weeks. There are sutures that are deeper inside that will take 3 months to dissolve. Remember that eating a diet rich in protein will help your incision heal. When showering let the water run over your incision and pat dry with a towel. You do not need to redress the wound. If it rubs against your pants and feels sore, it is fine to place a gauze pad between your incision and your clothing for cushioning. ??? If you are your milk will come in three or four days after you have given . It is normal for your nipples to feel sore for the first couple of weeks, but it is not normal for them to bleed, crack, or feel so raw that you feel like stopping . We have support on the OB unit. They are very willing to help and provide support in any way they can. If you feel more comfortable, you can also call the office for additional support and guidance. ??? During your we talked about what your control plans would be after your delivery. Some options include: condoms, the Minipill can be started in two weeks even if you are . The Nexplanon can be placed at three weeks. IUD's and regular dose oral contraceptive pills usually are started at the time of your six week post visit. It is advised that you avoid interc ourse for the first six weeks. ??? It is normal to experience post blues. Your hormone levels change dramatically after youdeliver and this can cause you to feel tired, teary eyed, sad, and overwhelmed at times. The post blues typically improve after 2-3 weeks. Post depression can settle in after that and can be very worrisome. If you feel that you cannot stop crying, do not want to see your baby, are struggling to leave your house and/or find that your mind is racing and you can't settle down, please call the office and we can see you to discuss depression and treatment options. ACTIVITY: ??? If you had a vaginal tear please avoid sexual intercourse until your six week post visit. If you had no tearing we recommend that you wait to have intercourse until all of your bleeding has stopped. Keep in mind that you can get if you aren't on anything for contraception. ??? If your baby was delivered by section please avoid sexual intercourse until your six week post visit. You should also do no heavy lifting for six weeks. Any lifting that takes thestrength of both of your arms/hands is contraindicated. If you need both hands because whatever youare lifting is cumbersome that is fine. For example, a laundry basket with a few towels in it. Alsoit is good for you to climb stairs and to go for small walks. ??? Your blood volume doubles during . After delivery your body works on removing all of this extra fluid. You may have noticed that your legs and ankles felt pretty swollen prior to delivery. It is normal to see this swelling get worse after delivery. It gets worse if you aren't drinking enough water and/or if you are eating foods with too much sodium. Push the water and watch your salts to help the swelling resolve as quickly as possible. Putting your feet up and wearing 2 pairs of socks for compression can help as well. MEDICATIONS: ??? Continue all regularly prescribed medications unless your provider told you to stop a particular medication after your delivery. ??? Continue taking your vitamins until your six week post visit or longer if you are still . This vitamin provides you with valuable nutrients/minerals such as iron and folic acid. It is recommended that all women of child bearing age take a supplement that contains Folic Acid. ??? Ibuprofen is the best medication for your baseline pain control. Taking 600mg by mouth every four hours will help with most of your post pain. Taking it with food is best so it doesn't upset your stomach. Taking it consistently will provide you the greatest pain relief. ??? Tylenol combined with a narcotic: You may have been sent home with a narcotic for pain you havethat isn't covered by the Ibuprofen. Most likely this medication will either be Tylenol #3 or Percocet. We recommend trying one tablet in an attempt to get your pain at a five or less on the pain scale. If after twenty minutes your pain is still greater than a five, you may take the second tablet. There is typically 325mg of Tylenol in each tablet. Be careful not to consume more that 3000mg of Tylenol daily. Most people will find that they need narcotic containing medications sparingly and within a few days not at all. If you had a delivery you may need this medication for a few extra days. These medications are constipating, can leave you slightly sick to your stomach and don't help with inflammation. Increase fluids and fiber. You may need an over the counter stool softener such as Colace or Senna. Taper the narcotic medication first and then the Ibuprofen. ??? These are the two main medications that we use for post op/post pain management. See below for the medications that we have recommended you use when you go home. You will have to have the prescriptions filled by your pharmacy. o Ibuprofen 600mg by mouth every four hours for baseline pain control. o Percocet 5/325mg by mouth, 1 or 2 tablets every 4 to 6 hours as needed for pain. o Tylenol #3 by mouth, 1 or 2 tablets every 4 to 6 hours as needed for pain. o Continue taking your vitamins at least until your six week post visit. o Iron Sulfate 325mg by mouth twice daily - take one half hour before meals with a glass of OJ or avitamin C tablet until gone. o Colace or Senakot once or twice daily to avoid constipation. o Norethindrone for control taken daily at the same time starting in 2 weeks. o FOLLOW UP APPOINTMENT: Post appointment is on ??@ . If this time does not work for you, please call the office to reschedule. The number is . If you need to contact Maternity, the number is and ask for the Maternity Department. Follow Up Care 2022 20:00:57 With:Wyatt Desouza MD, FACOG Address: [address] [place] [id number] When:1 to 2 weeks Comments:call office for appointment Discharge instructions * Rula Siegel: PERFORM Event Display: Discharge Instructions Authored Date: [id number] INDIO ODONNELL :1995 Age:27 years Sex:Female Visit Date:2022 Primary Care Physician: BENNY NIX [facility] Discharge Instructions We would like to thank you for allowing us to assist you with your healthcare needs. The following includes patient education materials and information regarding your injury/illness. After you leave the hospital, you may get your health information including your test results, physician notes and discharge information by accessing your Patient Portal. Your Next Steps Discharge Orders Discharge Diet Instruction, Regular Discharge Follow Up Instructions, 03/08/22 11:46:00 EST, When following are met: Follow up appt arranged within 7 days, Follow-up with [facility] in ____ weeks . Discharge Patient Instructions, Continue vitamins. Tylenol or Motrin every 4 hours as needed for pain. Gradually increase activity. Notify doctor if temperature greater than 100.5 ??F. Nothing in vagina for 6 weeks or until bleeding stops. Contraception . Discharge Patient Instructions, Estimated date of return to work ____ weeks. Discharge Patient Instructions, Breastfeed baby Discharge Patient Instructions, No heavy lifting for 6 weeks. Discharge Patient Instructions, No driving for 48 hours. Follow Up Appointments Follow Up with??Wyatt Desouza MD, FACOG When:??Within 1 to 2 weeks Why: call office for appointment Where: [address] [facility] [place] [address] Medications What How Much When Instructions Next Dose Unchanged multivitamin, ( Multivitamins) 1 tab Oral (given by mouth) Every day Your Summary Your Care Team Admitting Physician - Wyatt Desouza MD, ETHAN Attending Physician - Wyatt Desouza MD, FACDARLIN Primary Care Physician - BENNY NIX Referring Physician - Wyatt Desouza MD, FACOG Your Diagnosis exam Breech presentation 39 weeks gestation of Problems Ongoing - Any problem that you are currently receiving treatment for. Abnormal glucose tolerance test (GTT) during , antepartum Depression with anxiety Encounter for prophylactic administration of RhoGAM Encounter for supervision of normal first in third trimester Endometriosis Rh negative Scoliosis Procedures History ??? Section (03/05/2022) Tests Performed/Pending ABO/Rh Echo Antibody ID Antibody Screen Echo Automated Diff CBC w/ Diff Screen Glucose Level Hemoglobin and Hematocrit Hgb A1c Rhogam Syphilis Abs Qual Discharge Vitals Temperature??(Temporal Artery) 97.9 ??F (36.6 ??C) Heart Rate??(Monitored) 96 Respiratory Rate?? 18 Blood Pressure?? 125/69?? Allergies Aspir 81??(stomach pain, nausea, vomiting) Education Materials Dr. Desouza's Post Discharge Instructions Going home after a Vaginal or delivery GENERAL: ? You have just had a baby. It is normal to feel tired and worn out over the next several weeks. Sleep is difficult to get when you have a . We recommend sleeping when your baby sleeps if possible or asking someone to watch your so you can nap. ? Some discomfort is expected after a vaginal delivery. Most times this discomfort can be adequately managed with rest, heat, Ibuprofen, and Tylenol. Occasionally a narcotic may be needed for breakthrough pain. If you begin to have pain that is not controlled with the medications you were sent home with or if you develop fever and chills, please give the office a call. ? Vaginal bleeding is normal as your uterus works on returning to its normal size. While nursing yourbaby, your uterus may feel crampy and your bleeding may increase during these times. Passing some clots is normal. If bleeding increases over several hours and you soak through a pad or more an hour,we would want a call about that. ? If you had a vaginal tear that required suturing these sutures will dissolve over the next three weeks. During this process you may notice some yellowish drainage that may have an odor. This is the suture material breaking down, and it is a normal process. Keep the tissue clean with your pericare bottle or by taking a bath. Tucks pads can also be helpful. If you have an incision on your abdomen these sutures will dissolve on their own over the next 2 to 3 weeks. There are sutures that are deeper inside that will take 3 months to dissolve. Remember that eating a diet rich in protein will help your incision heal. When showering let the water run over your incision and pat dry with a towel. You do not need to redress the wound. If it rubs against your pants and feels sore, it is fine to place a gauze pad between your incision and your clothing for cushioning. ? If you are your milk will come in three or four days after you have given . It is normal for your nipples to feel sore for the first couple of weeks, but it is not normal for them to bleed, crack, or feel so raw that you feel like stopping . We have supporton the OB unit. They are very willing to help and provide support in any way they can. If you feel more comfortable, you can also call the office for additional support and guidance. ? During your we talked about what your control plans would be after your delivery. Some options include: condoms, the Minipill can be started in two weeks even if you are . The Nexplanon can be placed at three weeks. IUD's and regular dose oral contraceptive pills usually are started at the time of your six week post visit. It is advised that you avoid intercourse for the first six weeks. ? It is normal to experience post blues. Your hormone levels change dramatically after you deliver and this can cause you to feel tired, teary eyed, sad, and overwhelmed at times. The post blues typically improve after 2-3 weeks. Post depression can settle in after that and can be very worrisome. If you feel that you cannot stop crying, do not want to see your baby, are struggling to leave your house and/or find that your mind is racing and you can't settle down, please call the office and we can see you to discuss depression and treatment options. ACTIVITY: ? If you had a vaginal tear please avoid sexual intercourse until your six week post visit. Ifyou had no tearing we recommend that you wait to have intercourse until all of your bleeding has stopped. Keep in mind that you can get if you aren't on anything for contraception. ? If your baby was delivered by section please avoid sexual intercourse until your six week post visit. You should also do no heavy lifting for six weeks. Any lifting that takes the strength of both of your arms/hands is contraindicated. If you need both hands because whatever you arelifting is cumbersome that is fine. For example, a laundry basket with a few towels in it. Also it is good for you to climb stairs and to go for small walks. ? Your blood volume doubles during . After delivery your body works on removing all of this extra fluid. You may have noticed that your legs and ankles felt pretty swollen prior to delivery. It is normal to see this swelling get worse after delivery. It gets worse if you aren't drinking enough water and/or if you are eating foods with too much sodium. Push the water and watch your salts tohelp the swelling resolve as quickly as possible. Putting your feet up and wearing 2 pairs of socksfor compression can help as well. MEDICATIONS: ? Continue all regularly prescribed medications unless your provider told you to stop a particular medication after your delivery. ? Continue taking your vitamins until your six week post visit or longer if you are still . This vitamin provides you with valuable nutrients/minerals such as iron and folic acid. It is recommended that all women of child bearing age take a supplement that contains Folic Acid. ? Ibuprofen is the best medication for your baseline pain control. Taking 600mg by mouth every four hours will help with most of your post pain. Taking it with food is best so it doesn't upset your stomach. Taking it consistently will provide you the greatest pain relief. ? Tylenol combined with a narcotic: You may have been sent home with a narcotic for pain you have that isn't covered by the Ibuprofen. Most likely this medication will either be Tylenol #3 or Percocet.We recommend trying one tablet in an attempt to get your pain at a five or less on the pain scale. If after twenty minutes your pain is still greater than a five, you may take the second tablet. There is typically 325mg of Tylenol in each tablet. Be careful not to consume more that 3000mg of Tylenol daily. Most people will find that they need narcotic containing medications sparingly and within afew days not at all. If you had a delivery you may need this medication for a few extra days. These medications are constipating, can leave you slightly sick to your stomach and don't help with inflammation. Increase fluids and fiber. You may need an over the counter stool softener such asColace or Senna. Taper the narcotic medication first and then the Ibuprofen. ? These are the two main medications that we use for post op/post pain management. See below for the medications that we have recommended you use when you go home. You will have to have the prescriptions filled by your pharmacy. o?? Ibuprofen 600mg by mouth every four hours for baseline pain control. o?? Percocet 5/325mg by mouth, 1 or 2 tablets every 4 to 6 hours as needed for pain. o?? Tylenol #3 by mouth, 1 or 2 tablets every 4 to 6 hours as needed for pain. o?? Continue taking your vitamins at least until your six week post visit. o?? Iron Sulfate 325mg by mouth twice daily - take one half hour before meals with a glass of OJ or a vitamin C tablet until gone. o?? Colace or Senakot once or twice daily to avoid constipation. o?? Norethindrone for control taken daily at the same time starting in 2 weeks. o?? FOLLOW UP APPOINTMENT: Post appointment is on ??@ . If this time does not work for you, please call the office to reschedule. The number is . If you need to contact Maternity, the number is and ask for the Maternity Department. Patient Name:INDIO ODONNELL I have received this information and my questions have been answered. 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 Lives away and mother afraid not be able to get back in time once started labor.?? Objective Vitals & Measurements T:??36.9?C ??(Temporal Artery)?? HR:??95??(Monitored)?? RR:??20?? BP:??131/77?? HT:??165.10??cm?? WT:??94.6??kg?? Pain Score:??5?? Physical Exam Cervix unchanged midposition, not dilated but low according to nurses exam.?? Contractions frequentbut not organized.?? Assessment/Plan 1.??39 weeks gestation of ??[id number] admit and if FH remains okay ad no progress, Morphine/Phenergan therapeutic rest overnight. Ordered: Decision to Admit, 03/04/22 21:06:00 EST, Labor & Delivery, Wyatt Desouza MD, FACOG ?? Irregular uterine contractions??O47.9 Ordered: Decision to Admit, 03/04/22 21:06:00 EST, Labor & Delivery, Wyatt Desouza MD, FACOG ?? Orders: morphine, 10 mg = 1 mL, IM, Injection, Once, First Dose: 03/04/22 22:00:00 EST, Stop Date: 2222:00:00 EST, Physician Stop, Routine Multivitamins, 1 tab, Oral, Tab, Daily, First Dose: 03/05/22 9:00:00 EST, Routine Multivitamins, 1 tab, Oral, Tab, Daily, First Dose: 03/05/22 9:00:00 EST, Routine Phenergan, 25 mg = 1 mL, IM, Vial, Once, First Dose: 03/04/22 22:00:00 EST, Stop Date: 03/04/22 22:00:00 EST, Physician Stop, Routine Diet Order, 03/04/22 9:00:00 EST, Regular Discharge Patient, 03/04/22 17:07:[address] in Observation, Observation, Observation, Wyatt Desouza MD, FACOG, 03/04/22 7:02:00 EST, 03/04/22 7:02:00 EST, 03/04/22 7:02:00 EST, Less than 96 hours Electronically Signed on 03/04/22 09:15 PM Wyatt Desouza MD, FACOG summary Document * Event Display: Summary Document Note * Event Display: OB Note Progress note * Wyatt Desouza MD, FACOG: PERFORM Event Display: Progress Note - Physician Authored Date: [id number] INDIO ODONNELL :1995 Age:27 years Sex:Female Visit Date:2022 Primary Care Physician: BENNY NIX Anticipated Discharge Date 03/08/2022 Subjective Numbness left lateral thigh. Using Objective Vitals & Measurements T:??36.4?C ??(Temporal Artery)?? TMIN:??36.1?C ??(Axillary)?? TMAX:??37.2?C ??(TemporalArtery)?? HR:??90??(Monitored)?? RR:??18?? BP:??120/65?? Pain Score:??3?? O2 Therapy:??Room air?? Physical Exam Ibuprofen/Tylenol for pain.?? IV out.?? Uterus firm.?? Dressing dry. Hct 30.6% Lab Results Hct 30.6% Assessment/Plan 1.?? exam??Z39.2 POD #2 Okay.?? Ambulate.?? Breast pumping and perhaps nipple shield. Home tomorrow? 2.??Breech presentation??O32.1XX0 Delivered by section 3.??39 weeks gestation of ??Z3A.39 Orders: docusate-senna 50 mg-8.6 mg oral tablet, 1 tab, Oral, Tab, BID for 30 days, First Dose: 03/06/22 9:00:00 EST, Stop Date: 04/05/22 8:59:00 EST, Physician Stop, Routine Multivitamins, 1 tab, Oral, Tab, Daily for 30 days, First Dose: 03/06/22 9:00:00 EST, StopDate: 04/05/22 8:59:00 EST, Physician Stop, Routine triamcinolone 0.025% topical cream, 1 blossom, Topical, Cream, every 6 hr for 30 days, PRN itching, First Dose: 03/06/22 13:55:00 EST, Stop Date: 04/05/22 13:54:00 EST, Physician Stop, Routine Bladder Scan, 03/06/22 9:07:00 EST, PRN, for urinary discomfort, 03/06/22 9:07:00 EST Checks, 03/06/22 9:07:00 EST, Constant order, Per protocol until discharge Wound Care, 03/06/22 9:07:00 EST, Daily Electronically Signed on 03/07/22 07:24 AM Wyatt Desouza MD, FACOG * Wyatt Desouza MD, FACOG: PERFORM Event Display: Progress Note - Physician Authored Date: [id number] INDIO ODONNELL :1995 Age:27 years Sex:Female Visit Date:2022 Primary Care Physician: BENNY NIX Anticipated Discharge Date 03/08/22 Subjective Problems with latch.?? Some incisional burning. Objective Vitals & Measurements T:??36.1?C ??(Axillary)?? TMIN:??36.1?C ??(Axillary)?? TMAX:??36.7?C ??(Axillary)?? HR:??76??(Monitored)?? RR:??20?? BP:??117/58?? SpO2:??99%?? Pain Score:??5?? Physical Exam Dressing dry. Ambulated.?? Voided. 10.3/30.6 H/H. Brest feeding. Lab Results Hgb 10.6 Assessment/Plan 1.?? exam??Z39.2 Doing okay.?? Ambulate and work on breast feeding. Only using ibuprofen and Tylenol. ?? 2.??Breech presentation??O32.1XX0 Delivered Ordered: Obtain Surgical Consent, 03/05/22 12:20:00 EST, section, Breech presentation ?? 3.??39 weeks gestation of ??Z3A.39 Delivered ?? Orders: acetaminophen, 1,000 mg = 100 mL, IV Piggyback, Injection, every 6 hr, PRN pain, Administer over: 0.3 hr, First Dose: 03/05/22 12:18:00 EST, Routine, 333.33 mL/hr acetaminophen, 650 mg = 2 tab, Oral, Tab, every 4 hr, PRN pain, mild, First Dose: 03/05/22 12:18:00EST, Routine docusate-senna 50 mg-8.6 mg oral tablet, 1 tab, Oral, Tab, BID for 30 days, First Dose: 03/06/22 9:00:00 EST, Stop Date: 04/05/22 8:59:00 EST, Physician Stop, Routine ibuprofen, 600 mg = 1 tab, Oral, Tab, every 4 hr, PRN pain, mild, First Dose: 03/05/22 12:18:00 EST, Routine Lactated Ringers Injection 1,000 mL, Total Volume (mL): 1,000, 1,000 mL, Soln- IV, IV, 150 mL/hr, Start Date: 03/05/22 12:14:00 EST, 94.6 kg, Populate Charting Weight From Order, 2.08, m2 morphine, 4 mg = 1 mL, IV Push, Injection, every 30 min, PRN pain, severe, First Dose: 03/05/22 12:18:00 EST, Routine morphine, 2 mg = 1 mL, IV Push, Injection, every 30 min, PRN pain, moderate, First Dose: 03/05/22 12:18:00 EST, Routine Multivitamins, 1 tab, Oral, Tab, Daily for 30 days, First Dose: 03/06/22 9:00:00 EST, StopDate: 04/05/22 8:59:00 EST, Physician Stop, Routine naloxone, 0.1 mg = 0.25 mL, IV Push, Injection, every 5 min, PRN other (see comment), First Dose: 03/05/22 12:18:00 EST, Routine oxyCODONE, 10 mg = 2 tab, Oral, Tab, every 4 hr, PRN pain, severe, First Dose: 03/05/22 12:18:00 EST, Routine oxyCODONE, 5 mg = 1 tab, Oral, Tab, every 4 hr, PRN pain, moderate, First Dose: 03/05/22 12:18:00 EST, Routine Activities of Daily Living Adult, 03/05/22 12:18:00 EST, Constant order, Out of bed within 12 hoursof delivery Ambulate, 03/05/22 12:18:00 EST, QID Bladder Scan, 03/06/22 9:07:00 EST, PRN, for urinary discomfort, 03/06/22 9:07:00 EST Diet Order, 03/05/22 12:18:00 EST, Regular Notify Provider, 03/05/22 12:18:00 EST, Constant order, If temperature greater than 38 C, if pulse greater than 100, or if blood pressure is dropping Out of Bed, 03/05/22 12:18:00 EST, 3 days, Stop date 03/08/22 12:17:00 EST, Constant order, within 12 hours of delivery Checks, 03/06/22 9:07:00 EST, Constant order, Per protocol until discharge Shower Privileges, 03/05/22 12:18:00 EST, Constant order Straight Catheter Insertion, PRN, for retention after kemp removal Urinary Catheter Discontinue, 03/06/22 0:18:00 EST Wound Assessment, 03/05/22 12:18:00 EST, Constant order, Remove temporary dressing or remove 7-day dressing if it becomes wet underneath Wound Care, 03/06/22 9:07:00 EST, Daily Electronically Signed on 03/06/22 12:10 PM Wyatt Desouza MD, FACOG Physician Outpatient Note * Wyatt Desouza MD, FACOG: PERFORM Event Display: Office Clinic Note Physician Authored Date: [id number] INDIO ODONNELL :1995 Age:27 years Sex:Female Visit Date:2022 Primary Care Physician: BENNY NIX YELENA/EGA Gestational Age (EGA) and YELENA? * Note: EGA calculated as of 03/05/2022 ?? YELENA:??03/06/2022?EGA*:??39 weeks 6 days ?Type:??Authoritative?Method Date:??08/11/2021 ?Method:??Ultrasound??(08/11/2021) ?Confirmation:??Confirmed ?Description:??-- ?Comments:??-- ?Entered by:??Roseanna Hathaway on 12/23/2021? Other YELENA Calculations for this : ?Method:??Last Menstrual Period ?Method Date:??05/23/2021 ?YELENA:??02/27/2022 ?EGA (At Entry):??30 weeks 5 days ?Type:??Non-Authoritative ?Comments:??-- ?Entered by:??Wyatt Desouza MD, FACOG on 12/24/2021 ?Method:??Ultrasound ?Method Date:??11/02/2021 ?YELENA:??03/09/2022 ?EGA (At Entry):??21 weeks 6 days ?Type:??Non-Authoritative ?Comments:??-- ?Entered by:??Roseanna Hathaway on 12/23/2021 Chief Complaint SROM last night around 2029 Physical Exam Vitals & Measurements T:??36.6?C ??(Temporal Artery)?? HR:??90??(Apical)?? RR:??24?? BP:??131/77?? HT:??165.100??cm?? WT:??94.600??kg?? BMI:??34.710?? Pain Score:??8?? Risk Factors No risk factors documented Assessment/Plan 1.??39 weeks gestation of ??Z3A.39 Ordered: oxytocin IV additive 30 units + Premix Diluent 500 mL, Total Volume (mL): 500, 500 mL, Soln, IV, Titrate Per Protocol, Order Duration: 30 days, Start Date: 03/05/22 8:09:00 EST, Stop Date: 04/04/22 8:08:00 EST, 94.6 kg, Populate Charting Weight From Order, 2.08, m2 ?? Irregular uterine contractions??O47.9 ?? Orders: Lactated Ringers Injection 1,000 mL, Total Volume (mL): 1,000, 1,000 mL, Soln- IV, IV, 100 mL/hr, Order Duration: 30 days, Start Date: 03/05/22 8:06:00 EST, Stop Date: 04/04/22 8:05:00 EST, 94.6 kg, Populate Charting Weight From Order, 2.08, m2 oxytocin IV additive 30 units + Premix Diluent 500 mL, Total Volume (mL): 500, 500 mL, Soln, IV, Titrate Per Protocol, Order Duration: 30 days, Start Date: 03/05/22 8:05:00 EST, Stop Date: 04/04/22 8:04:00 EST, 94.6 kg, Populate Charting Weight From Order, 2.08, m2 ABO/Rh Echo, Blood, Routine, 03/05/22 8:08:00 EST, Once, Lab Collect ABSC Echo, Blood, Routine, 03/05/22 8:08:00 EST, Once, Lab Collect CBC w/ Diff, Blood, Routine, 03/05/22 8:08:00 EST, Once, Lab Collect Glucose Level, Blood, Routine, 03/05/22 8:08:00 EST, Once, Lab Collect Hgb A1c, Blood, Routine, 03/05/22 8:09:00 EST, Once, Lab Collect PSO Admit to Inpatient, Obstetrics, Inpatient, Wyatt Desouza MD, FACOG, 03/05/22 8:00:00 EST, 03/05/22 8:00:00 EST, 03/05/22 8:00:00 EST, Less than 96 hours Cards Exam and Notes ?? Exams and Notes ?? Date:??03/05/22 EGA:??39w6d Weight (lbs kg):??*208... Fundal Height (cm):??-- ? Blood Pressure (mmHg):??-- ? Cervix Exam (Dil cm/Eff %/Sta -):0/--/--?? Labor S/S:?? Urine Glucose:?? Urine Protein:?? Next Visit:?? Baby A?FHR:??130bpm ? Movement:??Present per patient ?Presentation:??-- ? Date:??03/04/22 EGA:??39w6d Weight (lbs kg):??*208... Fundal Height (cm):??-- ? Blood Pressure (mmHg):??131/77 ? Cervix Exam (Dil cm/Eff %/Sta -):0/50%/-3?? Labor S/S:?? Urine Glucose:?? Urine Protein:?? Next Visit:?? Baby A?FHR:??135 ? Movement:??Present per patient ?Presentation:??-- ? Date:??03/02/22 EGA:??39w3d Weight (lbs kg):??*208... Fundal Height [...] of pelvic endometriosis (12/13/2018)???Umbilical hernia (2010) Medications Lactated Ringers Injection 1,000 mL, 1000 mL, IV oxytocin IV additive 30 units + Premix Diluent 500 mL oxytocin IV additive 30 units + Premix Diluent 500 mL Multivitamins, 1 tab, Oral, Daily Allergies Aspir [...] Performed: 09/08/21 Rubella,Transcribed: Immune Electronically Signed on 03/05/22 08:13 AM Wyatt Desouza MD, FACOG * Wyatt Desouza MD, FACOG: PERFORM Event Display: Office Clinic Note Physician Authored Date: [id number] INDIO ODONNELL :1995 Age:27 years Sex:Female Visit Date:2022 Primary Care Physician: BENNY NIX YELENA/EGA Gestational Age (EGA) and YELENA? * Note: EGA calculated as of 03/05/2022 ?? YELENA:??03/06/2022?EGA*:??39 weeks 6 days ?Type:??Authoritative?Method Date:??08/11/2021 ?Method:??Ultrasound??(08/11/2021) ?Confirmation:??Confirmed ?Description:??-- ?Comments:??-- ?Entered by:??Roseanna Hathaway on 12/23/2021? Other YELENA Calculations for this : ?Method:??Last Menstrual Period ?Method Date:??05/23/2021 ?YELENA:??02/27/2022 ?EGA (At Entry):??30 weeks 5 days ?Type:??Non-Authoritative ?Comments:??-- ?Entered by:??Wyatt Desouza MD, FACOG on 12/24/2021 ?Method:??Ultrasound ?Method Date:??11/02/2021 ?YELENA:??03/09/2022 ?EGA (At Entry):??21 weeks 6 days ?Type:??Non-Authoritative ?Comments:??-- ?Entered by:??Roseanna Hathaway on 12/23/2021 Chief Complaint SROM last night around 2030 History of Present Illness As above. Physical Exam Vitals & Measurements T:??36.6?C ??(Temporal Artery)?? HR:??90??(Apical)?? RR:??24?? BP:??131/77?? HT:??165.100??cm?? WT:??94.600??kg?? BMI:??34.710?? Pain Score:??8?? Cervix still high and 0 cm Risk Factors No risk factors documented Assessment/Plan 1.??39 weeks gestation of ??Z3A.39 ROM x 12 hours. Need to start Pitocin- patient agrees. Ordered: oxytocin IV additive 30 units + Premix Diluent 500 mL, Total Volume (mL): 500, 500 mL, Soln, IV, Titrate Per Protocol, Order Duration: 30 days, Start Date: 03/05/22 8:09:00 EST, Stop Date: 04/04/22 8:08:00 EST, 94.6 kg, Populate Charting Weight From Order, 2.08, m2 ?? Irregular uterine contractions??O47.9 ?? Orders: Lactated Ringers Injection 1,000 mL, Total Volume (mL): 1,000, 1,000 mL, Soln- IV, IV, 100 mL/hr, Order Duration: 30 days, Start Date: 03/05/22 8:06:00 EST, Stop Date: 04/04/22 8:05:00 EST, 94.6 kg, Populate Charting Weight From Order, 2.08, m2 oxytocin IV additive 30 units + Premix Diluent 500 mL, Total Volume (mL): 500, 500 mL, Soln, IV, Titrate Per Protocol, Order Duration: 30 days, Start Date: 03/05/22 8:05:00 EST, Stop Date: 04/04/22 8:04:00 EST, 94.6 kg, Populate Charting Weight From Order, 2.08, m2 ABO/Rh Echo, Blood, Routine, 03/05/22 8:08:00 EST, Once, Lab Collect ABSC Echo, Blood, Routine, 03/05/22 8:08:00 EST, Once, Lab Collect CBC w/ Diff, Blood, Routine, 03/05/22 8:08:00 EST, Once, Lab Collect Glucose Level, Blood, Routine, 03/05/22 8:08:00 EST, Once, Lab Collect Hgb A1c, Blood, Routine, 03/05/22 8:09:00 EST, Once, Lab Collect PSO Admit to Inpatient, Obstetrics, Inpatient, Wyatt Desouza MD, FACOG, 03/05/22 8:00:00 EST, 03/05/22 8:00:00 EST, 03/05/22 8:00:00 EST, Less than 96 hours Cards Exam and Notes ?? Exams and Notes ?? Date:??03/05/22 EGA:??39w6d Weight (lbs kg):??*208... Fundal Height (cm):??-- ? Blood Pressure (mmHg):??-- ? Cervix Exam (Dil cm/Eff %/Sta -):0/--/--?? Labor S/S:?? Urine Glucose:?? Urine Protein:?? Next Visit:?? Baby A?FHR:??130bpm ? Movement:??Present per patient ?Presentation:??-- ? Date:??03/04/22 EGA:??39w6d Weight (lbs kg):??*208... Fundal Height (cm):??-- ? Blood Pressure (mmHg):??131/77 ? Cervix Exam (Dil cm/Eff %/Sta -):0/50%/-3?? Labor S/S:?? Urine Glucose:?? Urine Protein:?? Next Visit:?? Baby A?FHR:??135 ? Movement:??Present per patient ?Presentation:??-- ? Date:??03/02/22 EGA:??39w3d Weight (lbs kg):??*208... Fundal Height [...] of pelvic endometriosis (12/13/2018)???Umbilical hernia (2010) Medications Lactated Ringers Injection 1,000 mL, 1000 mL, IV oxytocin IV additive 30 units + Premix Diluent 500 mL oxytocin IV additive 30 units + Premix Diluent 500 mL Multivitamins, 1 tab, Oral, Daily Allergies Aspir [...] Hypertension: Mother. Hysterectomy: Mother. Family Member(s): ?? GPASTEFT, at age: Unknown. Cause of : Family Member(s): ?? SOLEDADT, at age: Unknown. Cause of : suicide in his 50's Family Member(s): ?? VERÓNICA, at age: Unknown. Cause of : MVA [...] Performed: 09/08/21 Rubella,Transcribed: Immune Electronically Signed on 03/05/22 08:13 AM Wyatt Desouza MD, FACOG History and physical note * Wyatt Desouza MD, FACOG: MODIFY, PERFORM Event Display: History and Physical Authored Date: INDIO ODONNELL :1995 Age:27 years Sex:Female Visit Date:2022 Primary Care Physician: BENNY NIX Anticipated Discharge Date 03/08/2022 Subjective Pain increasing Review of Systems See Previous notes/AP record.?? H/O endometriosis Objective Vitals & Measurements T:??36.6?C ??(Temporal Artery)?? TMIN:??36.6?C ??(Temporal Artery)?? TMAX:??36.9?C ??(Temporal Artery)?? HR:??90??(Apical)?? RR:??24?? BP:??131/77?? HT:??165.100??cm?? WT:??94.600??kg?? BMI:??34.710?? Pain Score:??8?? Physical Exam VS okay.?? Chest clear.?? Heart without murmur.?? Adomen gravid- EFW 8#. Bloody show.?? Cx 3 cm.?? FH moderate variability. Assessment/Plan 1.??39 weeks gestation of ??Z3A.39 Induction initiated but now appears to be breech and patient with large baby at 3 cm agrees to section rather than vaginal delivery. Labs already done. IV in place.?? Cath in OR. Peds and OR/anesthesia called.? Breech presentation??O32.1XX0 Section Ordered: Obtain Surgical Consent, 03/05/22 12:20:00 EST, section, Breech presentation ?? Irregular uterine contractions??O47.9 Stop Pitocin. ?? Orders: acetaminophen, 1,000 mg = 100 mL, IV Piggyback, Injection, every 6 hr, PRN pain, Administer over: 0.3 hr, First Dose: 03/05/22 12:18:00 EST, Routine, 400 mL/hr acetaminophen, 650 mg = 2 tab, Oral, Tab, every 4 hr, PRN pain, mild, First Dose: 03/05/22 12:18:00EST, Routine ceFAZolin, 2 g = 50 mL, IV Piggyback, Injection, Once, Antibiotic Indication Prophylaxis- surgical,Administer over: 0.5 hr, First Dose: 03/05/22 13:00:00 EST, Stop Date: 03/05/22 13:00:00 EST, Physician Stop, Routine, 100 mL/hr ibuprofen, 600 mg = 1 tab, Oral, Tab, every 4 hr, PRN pain, mild, First Dose: 03/05/22 12:18:00 EST, Routine ketorolac, 30 mg = 1 mL, IV Push, Vial, every 6 hr, PRN pain, mild, First Dose: 03/05/22 12:18:00 EST, Routine Lactated Ringers Injection 1,000 mL, Total Volume (mL): 1,000, 1,000 mL, Soln- IV, IV, 150 mL/hr, Start Date: 03/05/22 12:14:00 EST, 94.6 kg, Populate Charting Weight From Order, 2.08, m2 Lactated Ringers Injection 1,000 mL, Total Volume (mL): 1,000, 1,000 mL, Soln- IV, IV, 150 mL/hr, Order Duration: 30 days, Start Date: 03/05/22 9:22:00 EST, Stop Date: 04/04/22 9:21:00 EST, 94.6 kg, Populate Charting Weight From Order, 2.08, m2 metoclopramide, 10 mg = 2 mL, IV Push, Vial, Once, First Dose: 03/05/22 13:00:00 EST, Stop Date: 03/05/22 13:00:00 EST, Physician Stop, Routine morphine, 4 mg = 1 mL, IV Push, Injection, every 30 min, PRN pain, severe, First Dose: 03/05/22 12:18:00 EST, Routine morphine, 2 mg = 1 mL, IV Push, Injection, every 30 min, PRN pain, moderate, First Dose: 03/05/22 12:18:00 EST, Routine naloxone, 0.1 mg = 0.25 mL, IV Push, Injection, every 5 min, PRN other (see comment), First Dose: 03/05/22 12:18:00 EST, Routine oxyCODONE, 10 mg = 2 tab, Oral, Tab, every 4 hr, PRN pain, severe, First Dose: 03/05/22 12:18:00 EST, Routine oxyCODONE, 5 mg = 1 tab, Oral, Tab, every 4 hr, PRN pain, moderate, First Dose: 03/05/22 12:18:00 EST, Routine oxyCODONE-acetaminophen 5 mg-325 mg oral tablet, 2 tab, Oral, Tab, every 4 hr, PRN pain, moderate, First Dose: 03/05/22 12:18:00 EST, Routine oxyCODONE-acetaminophen 5 mg-325 mg oral tablet, 1 tab, Oral, Tab, every 4 hr, PRN pain, mild, First Dose: 03/05/22 12:18:00 EST, Routine oxytocin 30 units + Lactated Ringers Injection 500 mL, Total Volume (mL): 503, 500 mL, Vial, Injection, titrate per protocol, Start Date: 03/05/22 9:17:00 EST, 94.6 kg, Populate Charting Weight From Order, 2.08, m2 sodium citrate-citric acid, 30 mL, Oral, Soln, Once, First Dose: 03/05/22 13:00:00 EST, Stop Date: 03/05/22 13:00:00 EST, Physician Stop, Routine ABO/Rh Echo, Blood, Routine, 03/05/22 12:14:00 EST, Once, Nurse collect ABSC Echo, Blood, Routine, 03/05/22 12:14:00 EST, Once, Nurse collect Activities of Daily Living Adult, 03/05/22 12:18:00 EST, Constant order, Out of bed within 12 hoursof delivery Activity, 03/05/22 9:16:00 EST, Stop date 03/05/22 9:16:00 EST, Up ad pau Ambulate, 03/05/22 12:18:00 EST, QID Antibody ID, Blood, Expedite, Collected, 03/05/22 8:10:00 EST, Once, Lab Collect, [id number] Bathroom Privileges, 03/05/22 9:16:00 EST, Constant Order CBC w/ Diff, Blood, Routine, 03/06/22 12:14:00 EST, Once, Nurse collect Consult to Anesthesiology, Routine, Epidural Diet Order, 03/05/22 12:18:00 EST, Regular Heart Monitoring, 03/05/22 9:16:00 EST, PRN, Continuous monitoring during a) epidural anesthesia;b) oxytocin administration, c) 2 hours after use of Cytotec Hemoglobin and Hematocrit, Blood, Timed Study, 03/13/51 12:18:00 EST, Once, Lab Collect Hgb A1c, Blood, Routine, 03/05/22 9:20:00 EST, Once, Lab Collect Hourly Rounding, 03/05/22 9:16:00 EST, PRN, Maternal and Monitoring per policy Immunization Assessment., 03/05/22 12:14:00 EST, Once, Stop date 03/05/22 12:14:00 EST, Screen for Pneumococcal Vaccine, 03/05/22 12:14:00 EST Isolation Precautions, 03/05/22 9:16:00 EST, [place] Precautions Mis Nursing Task, 03/05/22 9:16:00 EST, Stop date 03/05/22 9:16:00 EST, Initiate appropriate standards of care Misc Nursing Task, 03/05/22 12:18:00 EST, 4 times, Stop date 03/05/22 12:18:00 EST, Assess fundus and lochia per standard of care every hour [facility] [place], 03/05/22 12:18:00 EST, Stop date 03/05/22 12:18:00 EST, Assess fundus and lochiaper standard of care Nitrous Oxide-OB, 03/05/22 9:16:00 EST, Stop date 03/05/22 9:16:00 EST, per OB standard of care Notify Provider, 03/05/22 9:16:00 EST, Constant order, For severe headaches, visual changes, RUQ pain. Notify Provider, 03/05/22 12:18:00 EST, Constant order, If temperature greater than 38 C, if pulse greater than 100, or if blood pressure is dropping Notify Provider, 03/05/22 9:16:00 EST, Constant order, If temperature greater than 38 C, if pulse greater than 100, or if blood pressure is dropping Notify Provider, 03/05/22 9:16:00 EST, Of patient arrival Notify Provider of Vital Signs, 03/05/22 9:16:00 EST, If temperature greater than 38 C, if pulse greater than 100, or if blood pressure is dropping., Constant Indicator Out of Bed, 03/05/22 12:18:00 EST, 3 days, Stop date 03/08/22 12:17:00 EST, Constant order, within 12 hours of delivery PSO Admit to Inpatient, Obstetrics, Inpatient, 03/05/22 9:10:00 EST, 03/05/22 9:10:00 EST, :10:00 EST, Less than 96 hours Resuscitation Status, 03/05/22 9:16:00 EST, Full Code Shower Privileges, 03/05/22 12:18:00 EST, Constant order Shower Privileges, 03/05/22 9:16:00 EST, PRN Straight Catheter Insertion, PRN, for retention after kemp removal Syphilis Abs Qual, Blood, Expedite, 03/05/22 9:16:00 EST, Once, Lab Collect Temperature, 03/05/22 9:16:00 EST, Constant order, q4 hours until ROM, then q1 hours Urinary Catheter Discontinue, 03/06/22 0:18:00 EST Urinary Catheter Insertion, 03/05/22 12:14:00 EST, Indication: Surgical Procedure, Indwelling Vaginal Exam, 03/05/22 9:16:00 EST, Perform vaginal exam prior to pain medication administration, epidural placement, & PRN - If gestation < 34weeks, documented Placenta Previa, or vaginal bleeding consult provider, Stop date 03/05/22 9:16:00 EST Vital Signs, 03/05/22 12:18:00 EST, Once, Stop date 03/05/22 12:18:00 EST Vital Signs, 03/05/22 12:14:00 EST, Once, Stop date 03/05/22 12:14:00 EST Vital Signs, 03/05/22 9:16:00 EST, Once, Stop date 03/05/22 9:16:00 EST Wound Assessment, 03/05/22 12:18:00 EST, Constant order, Remove temporary dressing or remove 7-day dressing if it becomes wet underneath Electronically Signed on 03/05/22 12:28 PM Wyatt Desouza MD, [facility] [place] Discharge summary * Event Display: Discharge Summary Patient Care team information Personnel Name: DINAHBENNY Address: Address: [facility] [address] [place], [place] [address]
--- OUTSIDE RECORDS SUMMARY | 2023-01-12 17:34 | XMS_ITS | Continuity of Care Document ---
Author Name Unknown Organization [facility] Address [address] [place] [address] Care Team Providers Care Helper/Driver Name Role Phone BENNY NIX Primary Care Physician Unavailab le Encounter LTTL_[place] FIN NBR [id number] Date(s): 03/04/22 - 03/04/[address] [address] [place] Encounter Diagnosis Abnormal glucose tolerance test (GTT) during , antepartum(Discharge Diagnosis) - 03/04/22 (Discharge Diagnosis) - 03/04/22 Depression with anxiety(Discharge Diagnosis) - 03/04/22 Pityriasis(Discharge Diagnosis) - 03/04/22 Discharge Disposition: Home or Self Care Attending Physician: Wyatt Desouza MD, FACOG Admitting Physician: Wyatt Desouza MD, FACOG Allergies, Adverse Reactions, Alerts Substance Reaction Severity Status Aspir 81 stomach pain, nausea, vomiting Severe Active Assessment and Plan Future Scheduled Tests Laboratory* Group B Strep ([facility]) 02/16/22 Functional Status 03/04/22 Family Member Travel History No recent t [...] for hemorrhoids Results Laboratory List Name Date Respiratory Panel 2.1 ([facility]) Covid On ly 03/04/22 Most recent to oldest [Reference Range]: 1 SARS-CoV-2 (COVID-19) RP-[facility] [Not Dete cted] Not Detected (03/04/22 10:55 AM) 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 Unknown *NA* (03/04/22 10:55 AM) Hospitalized due to COVID-19? Unknown *NA* (03/04/22 10:55 AM) In ICU? No *NA* (03/04/22 10:55 AM) Group care resident? Unknown *NA* (03/04/22 10:55 AM) status? *NA* (03/04/22 10:55 AM) Vital Signs Most recent to oldest [Reference Range]: 1 2 3 Temperature Temporal Artery [36-38 Deg C] 37 Deg C (03/04/22 12:03 PM) 37.2 Deg C (03/04/22 7:17 AM) Temperature Temporal Artery (DegF) [97.3-100 Deg F] 98.96 Deg F (03/04/22 7:17 AM) Apical Heart Rate [60-100 bpm] 78 bpm (03/04/22 5:02 PM) Heart Rate Monitored [60-100 bpm] 78 bpm (03/04/22 5:02 PM) 100 bpm (03/04/22 12:03 PM) 127 bpm *HI* (03/04/22 7:17 AM) Respiratory Rate [12-24 br/min] 18 br/min (03/04/22 12:03 PM) 18 br/min (03/04/22 7:17 AM) Blood Pressure [90-140/60-90 mmHg] 118/76mmHg (03/04/22 5:02 PM) 130/60mmHg (03/04/22 12:03 PM) 110/60mmHg (03/04/22 7:17 AM) Blood Pressure Location Right arm (03/04/22 5:02 PM) Right arm (03/04/22 12:03 PM) Right arm (03/04/22 7:17 AM) Blood Pressure Method Automatic (03/04/22 5:02 PM) Automatic (03/04/22 12:03 PM) Automatic (03/04/22 7:17 AM) Weight 94.600 kg (03/04/22 7:29 AM) Weight Dosing 94.600 kg (03/04/22 7:29 AM) Height 165.1 cm (03/04/22 7:29 AM) 165.100 cm (03/04/22 7:29 AM) Height/Length Dosing 165.100 cm (03/04/22 7:29 AM) BSA Estimated 0 m2 (03/04/22 7:29 AM) Body Mass Index 34.710 kg/m2 (03/04/22 7:29 AM) Social History Social History Type Response Smoking Status Smoking tobacco use: Never tobacco user; Smoking tobacco use: Marijuana;Never entered on: 02/21/22 Sex Hospital Discharge Instructions Follow Up Care 2022 06:52:16 With:BENNY NIX Address: [facility] [place] [address]- When:1 month Progress note * Wyatt Desouza MD, FACOG: PERFORM Event Display: Progress Note - Physician Authored Date: [id number] INDIO ODONNELL :1995 Age:27 years Sex:Female Visit Date:2022 Primary Care Physician: BENNY NIX Anticipated Discharge Date 03/04 1730 Subjective Wants to know how far dilated Objective Vitals & Measurements T:??37?C ??(Temporal Artery)?? TMIN:??37?C ??(Temporal Artery)?? TMAX:??37.2?C ??(Temporal Artery)?? HR:??78??(Apical)?? HR:??78??(Monitored)?? RR:??18?? BP:??118/76?? HT:??165.1??cm?? HT: ??165.100??cm?? WT:??94.600??kg?? BMI:??34.710?? Pain Score:??3?? Physical Exam Cx 0-1 x 50% x -3, mid position.?? FH with moderate variability. Assessment/Plan 1.?Z33.1 Attempted cervical ripening. Repeated misoprostol with 50 mcg 4 hurs ago and no regular pattern butsome change in her cervix. FH moderate variability. Discharge and return in AM for repeat attempt. Ordered: Discharge Patient, 03/04/22 17:07:00 EST ?? 2.??Depression with anxiety??F41.8 Okay Ordered: Discharge Patient, 03/04/22 17:07:00 EST ?? 3.??Abnormal glucose tolerance test (GTT) during , antepartum??O99.810 Check glucose when draw labs Ordered: Discharge Patient, 03/04/22 17:07:00 EST ?? 4.??Pityriasis??L21.0 Ordered: Discharge Patient, 03/04/22 17:07:00 EST ?? Orders: miSOPROStol, 25 mcg = 0.25 tab, VAG, Tab, Once, First Dose: 03/04/22 7:30:00 EST, Stop Date: 03/04/22 7:30:00 EST, Physician Stop, Routine Multivitamins, 1 tab, Oral, Tab, Daily, First Dose: 03/05/22 9:00:00 EST, Routine Diet Order, 03/04/22 9:00:00 EST, Regular PSO Place in Observation, Observation, Observation, Wyatt Desouza MD, FACOG, 03/04/22 7:02:00 EST, 03/04/22 7:02:00 EST, 03/04/22 7:02:00 EST, Less than 96 hours Electronically Signed on 03/04/22 06:09 PM Wyatt Desouza MD, FACOG * Wyatt Desouza MD, FACOG: PERFORM Event Display: Progress Note - Physician Authored Date: [id number] INDIO ODONNELL :1995 Age:27 years Sex:Female Visit Date:2022 Primary Care Physician: BENNY NIX Anticipated Discharge Date TBD Subjective EDC 02/27 by dates and 03/06 by US.?? Abnormal GTT and term size. Review of Systems Anxiety/depression.?? H/O endometriosis. A negative. Objective Physical Exam Chest clear.?? Heart regular. Abdomen with term size uterus and FHR 140's. Cervix closed.?? Skin with pityriasis and now rash on abdominal wall, pruritic Lab Results A neg Assessment/Plan 1.?Z33.1 Term with 40 cm uterus and new skin rash. Start with misoprostol ripening and reevaluate 2.??Depression with anxiety??F41.8 Chronic 3.??Abnormal glucose tolerance test (GTT) during , antepartum??O99.810 Not diabetic 4.??Pityriasis??L21.0 Chronic Orders: PSO Place in Observation, Observation, Observation, Wyatt Desouza MD, FACOG, 03/04/22 7:02:00 EST, 03/04/22 7:02:00 EST, 03/04/22 7:02:00 EST, Less than 96 hours Electronically Signed on 03/04/22 07:39 AM Wyatt Desouza MD, FACOG Patient Care team information Personnel Name: BENNY NIX Address: Address: [facility] [address] [place], [place] [address]
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
--- NOTE | 2023-01-12 18:07 | W.ED.GENAD ---
Discharge Plan Disposition Patient Disposition: Home Discharge Details Clinical Impression: Peritonsillar cellulitis Primary Care Provider: Lucy Waters ED Provider: Lisa Barden Home Meds and New Rx's Prescriptions: New clindamycin HCl 150 mg capsule 450 mg PO TID Qty: 63 0RF prednisone 20 mg tablet 40 mg PO ONCE Qty: 6 0RF Discharge Instructions Additional Instructions: Take antibiotic for 7 days Take the prednisone for 3 days Take Zofran as needed for nausea and vomiting and return should you develop difficulty swallowing, fever, or with any new or progressing symptoms Referrals: Lucy Waters [Primary Care Provider] - Discharge Data Discharge Date/Time-TO BE ENTERED AT DEPARTURE: 01/12/23 18:33 Medical Decision Making This 27-year-old female presents with sore throat, she has swelling and redness to her right soft palate but no evidence of abscess formation at this time, oropharynx patent, uvula midline, maintaining secretions, no trismus Secondary to exam I did place patient on clindamycin for cellulitis of her oropharynx and will place patient on steroids Strict return precautions reviewed and patient expressed understanding discharged home in stable condition with stable vitals HPI General Date/Time Provider Initiated Documentation: 01/12/23 17:35. HPI Narrative: This 27-year-old female presents with sore throat for the past 24 hours. Daughter sick with similar symptoms, no known history of strep, afebrile. Reports intermittent nausea and vomiting and earache. Related Data Home Medications Medication Instructions Recorded Confirmed clindamycin HCl 150 mg capsule 450 mg (3 x 150 mg) PO TID #63 caps 01/12/23 prednisone 20 mg tablet 40 mg (2 x 20 mg) PO ONCE #6 tabs 01/12/23 Previous Rx's Medication Instructions Recorded clindamycin HCl 150 mg capsule 450 mg (3 x 150 mg) PO TID #63 caps 01/12/23 prednisone 20 mg tablet 40 mg (2 x 20 mg) PO ONCE #6 tabs 01/12/23 Allergies Allergy/AdvReac Type Severity Reaction Status Date / Time aspirin AdvReac Intermediate Nausea Unverified 01/12/23 17:30 General Stated Complaint: Sorethroat SANTHOSH: 3 PFSH All Active Problems (Updated 01/12/23 @ 18:11 by MATT Reese) Peritonsillar cellulitis (Acute) Exposure to COVID-19 virus (Acute) Dental infection (Acute) Swelling of left eyelid (Acute) Conjunctivitis (Acute) Contraceptive management (Acute) 03/2014 Nexplanon 07/2016 Nexplanon removed. OCPs started. 09/2016 Noncompliant with OCPs. Mirena IUD inserted. 05/2017 Mirena removed, Ortho Evra patch initiated Abnormal weight loss (Acute 12/16/11) 04/17 nutrition consult and lab eval. Anxiety (Acute 01/14/13) BV (bacterial vaginosis) (Acute 03/20/17) Breakthrough bleeding on Nexplanon (Acute 03/16/15) Chlamydia (Acute 04/15/14) 05/2014 neg LEANNE. 06/04/15 New infection. Rx with Azithromycin 03/2016 ? new infection vs partner never treated. Rx with Azithromycin for both pt and her partner. 04/28/16 LEANNE - no GC/CT. Pt has been counseled regarding condoms. Constipation (Acute 01/03/12) Dental caries (Acute 12/16/11) Depression (Acute 05/02/14) Eczema (Acute 06/29/12) Excessive and frequent menstruation (Acute 01/03/12) Headache (Acute 12/16/11) IUD (intrauterine device) in place (Acute 09/08/16) Idiopathic scoliosis (Acute 12/16/11) Learning difficulty (Acute 12/16/11) Learning difficulty (Acute 12/16/11) thumb wound (Acute) Medical History BV (bacterial vaginosis) 11/2016. Rx with Metronidazole 03/20/17. Rx with Metronidazole. Chlamydia infection 04/17/14. Treated with neg LEANNE. 06/04/15 New infection. Rx with Azithromycin 03/29/2016 Rx with Azithromycin. LEANNE neg 05/02/16. Dysmenorrhea in adolescent improved with hormonal contraception. Frequent headaches ? menstrual related. Surgical History Repair of umbilical hernia (~2010) Family History Mother No problems noted. Other Graves disease Social History Smoking/Tobacco Use Status: Never Smoking risk assessment performed?: Yes Alcohol Intake: never Drug use: Daily Substance use type: marijuana Housing: house Number of Children: 0 current occupation: [employer] [place] [employer] Sexually active: Yes Seatbelt use: always Do you feel safe at home: Yes Do you feel safe in your relationship?: Yes Female Reproductive History Menstrual control method: patch Course Vital Signs Vital signs: Vital Signs Temperature 36.6 C 01/12/23 17:25 Pulse 110 H 01/12/23 17:25 Respiratory Rate 20 01/12/23 17:25 Blood Pressure 118/77 01/12/23 17:25 Pulse Oximetry 99 01/12/23 17:25 Temperature 36.6 C 01/12/23 17:25 Temperature Source Skin 01/12/23 17:25 Pulse 110 H 01/12/23 17:25 Respiratory Rate 20 01/12/23 17:25 Blood Pressure 118/77 01/12/23 17:25 Pulse Oximetry 97 01/12/23 17:28 Oxygen Delivery Method Room Air 01/12/23 17:28 Oxygen Flow Rate 0 01/12/23 17:25 Pain Level 9 01/12/23 17:28 Lab/Test Results Lab/Test Results: 01/12/23 17:41 Tonsil - Not Specified Group A Streptococcus Culture - Pending POC Strep Test-YARA(Rapid) Start: 01/12/23 17:31 Freq: .Rapid Strep Test Status: Active Protocol: Document 01/12/23 17:41 ISAIAH (Rec: 01/12/23 17:41 ISAIAH [id number]) Strep test-YARA(Rapid)-POC POC-Strep test-YARA (Rapid) Negative POC-Strep test-YARA (Rapid) Negative
[2023-01-12] MEDS: Dexamethasone 10 MG/ML VIAL PO (18:32)
[2023-01-12] MEDS: Clindamycin 150 MG CAP 450 MG PO (18:32)
[2023-01-12] MEDS: Ondansetron O.D.T. 4 MG TABEF, 3 TABS/BTL PO (18:32)
== END 2023-01-12 18:33 | disposition home or self-care (01) ==
PROVIDERS: Emergency Provider Physician Assistant; PCP Internal Medicine
DX: J36 Peritonsillar abscess (principal); H92.03 Otalgia, bilateral
CPT/HCPCS: 87426; 87880; 99283; 87081; J1100

== ENCOUNTER 2023-01-29 23:32 | Emergency (ER) | payer BC, SELFPAY ==
[2023-01-29 23:37] VITALS: PULSE 97; RESP 18; TEMP 36.4; O2SAT 98
--- NOTE | 2023-01-29 23:47 | W.ED.GENAD ---
Discharge Plan Disposition Patient Disposition: Home Condition: Good Discharge Details Clinical Impression: Acute sore throat Primary Care Provider: Lucy Waters ED Provider: Shahrzad Martinez Home Meds and New Rx's Prescriptions: New fluticasone propionate [Flonase Allergy Relief] 50 mcg/actuation spray,suspension 1 spray intranasal DAILY Qty: 16 0RF Rx Instructions: administer into each nostril loratadine [Claritin] 10 mg tablet 10 mg PO DAILY Qty: 30 0RF Discharge Instructions Additional Instructions: Patient to drink lots of water Start Claritin and Flonase daily Use humidifier at night in your bedroom Warm salt water gargles will help with throat pain Make sure to take Motrin and Tylenol as needed for pain Medical Decision Making Urgent evaluation of sore throat. Initial differential includes viral illness, strep pharyngitis, less likely WREATH INSPECTOR or RPA. Patient has a fairly benign examination. Very low suspicion for bacterial illness. I do not feel that she needs any antibiotics at this time. Zxafg-ad-betc strep testing was obtained. This was negative. Recommend Flonase and Claritin, prescription sent to pharmacy.. Supportive care guidance provided. Recommend follow-up with PCP as needed Medical Records Medical records reviewed: Yes I reviewed the patient's medical records. Lab Data Lab results reviewed: Yes I reviewed the patient's lab results. HPI General Date/Time Provider Initiated Documentation: 01/29/23 23:34. Limitations to Documentation: no limitations. Information obtained by: patient. HPI Narrative: 27-year-old female without significant past medical history presents for evaluation of ear pain and sore throat. She reports symptoms have been ongoing for the last 3 weeks. She was recently treated with a course of antibiotics and steroids. She states that her symptoms improved during that time but returned once the medications were finished. She has not been having any fever. She is eating and drinking normally. She is not having a cough. She is not taking any zdws-adw-vglqywa medications for symptom relief or doing anything such as warm salt water alcohols or lozenges. Related Data Home Medications Medication Instructions Recorded Confirmed fluticasone propionate 50 1 spray intranasal DAILY #16 grams 01/29/23 mcg/actuation nasal spray,suspension (Flonase Allergy Relief) loratadine 10 mg tablet (Claritin) 10 mg PO DAILY #30 tabs 01/29/23 Previous Rx's Medication Instructions Recorded fluticasone propionate 50 1 spray intranasal DAILY #16 grams 01/29/23 mcg/actuation nasal spray,suspension (Flonase Allergy Relief) loratadine 10 mg tablet (Claritin) 10 mg PO DAILY #30 tabs 01/29/23 Allergies Allergy/AdvReac Type Severity Reaction Status Date / Time aspirin AdvReac Intermediate Nausea Unverified 01/29/23 23:41 General Stated Complaint: Sorethroat SANTHOSH: 4 PFSH All Active Problems (Updated 01/29/23 @ 23:50 by Shahrzad Martinez MD) Acute sore throat (Acute) Peritonsillar cellulitis (Acute) Exposure to COVID-19 virus (Acute) Dental infection (Acute) Swelling of left eyelid (Acute) Conjunctivitis (Acute) Contraceptive management (Acute) 03/2014 Nexplanon 07/2016 Nexplanon removed. OCPs started. 09/2016 Noncompliant with OCPs. Mirena IUD inserted. 05/2017 Mirena removed, Ortho Evra patch initiated Abnormal weight loss (Acute 12/16/11) 04/17 nutrition consult and lab eval. Anxiety (Acute 01/14/13) BV (bacterial vaginosis) (Acute 03/20/17) Breakthrough bleeding on Nexplanon (Acute 03/16/15) Chlamydia (Acute 04/15/14) 05/2014 neg LEANNE. 06/04/15 New infection. Rx with Azithromycin 03/2016 ? new infection vs partner never treated. Rx with Azithromycin for both pt and her partner. 04/28/16 LEANNE - no GC/CT. Pt has been counseled regarding condoms. Constipation (Acute 01/03/12) Dental caries (Acute 12/16/11) Depression (Acute 05/02/14) Eczema (Acute 06/29/12) Excessive and frequent menstruation (Acute 01/03/12) Headache (Acute 12/16/11) IUD (intrauterine device) in place (Acute 09/08/16) Idiopathic scoliosis (Acute 12/16/11) Learning difficulty (Acute 12/16/11) Learning difficulty (Acute 12/16/11) thumb wound (Acute) Medical History Dysmenorrhea in adolescent improved with hormonal contraception. Frequent headaches ? menstrual related. Chlamydia infection 04/17/14. Treated with neg LEANNE. 06/04/15 New infection. Rx with Azithromycin 03/29/2016 Rx with Azithromycin. LEANNE neg 05/02/16. BV (bacterial vaginosis) 11/2016. Rx with Metronidazole 03/20/17. Rx with Metronidazole. Surgical History Repair of umbilical hernia (~2010) Family History Mother No problems noted. Other Graves disease Social History Smoking/Tobacco Use Status: Never Smoking risk assessment performed?: Yes Alcohol Intake: never Drug use: Daily Substance use type: marijuana Housing: house Number of Children: 0 current occupation: [employer] [place] [employer] Sexually active: Yes Seatbelt use: always Do you feel safe at home: Yes Do you feel safe in your relationship?: Yes Female Reproductive History Menstrual control method: patch Exam Narrative Exam Narrative: Review of Systems: All systems reviewed & are unremarkable except as noted in HPI and below Well-developed, no acute distress NACT PERRL, normal conjunctiva Bilateral TM without erythema or bulging Tonsils not significantly enlarged, mild erythema, no exudates No significant lymphadenopathy appreciated RRR Unlabored respiratory effort Nondistended abdomen Extremities w/o deformity, no cyanosis, no edema No rashes or lesions. no focal neurologic deficits Appropriate mood and affect Course Vital Signs Vital signs: Vital Signs Temperature 36.4 C L 01/29/23 23:37 Pulse 97 H 01/29/23 23:37 Respiratory Rate 18 01/29/23 23:37 Pulse Oximetry 98 01/29/23 23:37 Temperature 36.4 C L 01/29/23 23:37 Temperature Source Temporal Artery Scan 01/29/23 23:37 Pulse 97 H 01/29/23 23:37 Respiratory Rate 18 01/29/23 23:37 Pulse Oximetry 98 01/29/23 23:37 Oxygen Delivery Method Room Air 01/29/23 23:37 Oxygen Flow Rate 0 01/29/23 23:37 Pain Level 6 01/29/23 23:37
== END 2023-01-30 00:01 | disposition home or self-care (01) ==
PROVIDERS: Emergency Provider Emergency Medicine; PCP Internal Medicine
DX: J02.9 Acute pharyngitis, unspecified (principal)
CPT/HCPCS: 81025; 87880; 99283; 87081

== ENCOUNTER 2023-04-23 08:14 | Emergency (ER) | payer BC, SELFPAY ==
--- NOTE | 2023-04-23 08:15 | RT.EKG_ITS ---
APPROVED REPORT Exam: Resting ECG Reason for Exam: chest pressure Patient Location: E HR:89 bpm ECG Measurements Heart Rate 89 AXIS SD 139 P 71 QRSd 86 QRS 89 QT 350 T 3 QTc 426 Conclusion Sinus rhythm...normal P axis, V-rate 60- 99
[2023-04-23 08:22] VITALS: BP 125/90; PULSE 91; RESP 18; TEMP 37; O2SAT 99
[2023-04-23 08:27] VITALS: BP 125/90; PULSE 91; RESP 18; TEMP 37; O2SAT 99
[2023-04-23 08:32] VITALS: RESP 18
--- NOTE | 2023-04-23 08:34 | ED.GENADUL_ITS ---
HPI General Mode of arrival: ambulatory . Date/Time Provider Initiated Documentation: 04/23/23 08:15 . Limitations to Documentation: no limitations . Information obtained by: patient . History of Present Illness 28 year old F presents to the emergency department with the chief complaint of flu like symptoms, described as moderate, Patient started experiencing this week(s) (1) and it has been constant. No relieving factors improve symptom(s), No exacerbating factors reported . Patient notes cough, nausea/vomiting and other (body aches, dizziness, migraine); denies chest pain and fever/chills. Related Data Home Medications Medication Instructions Recorded Confirmed fluticasone propionate 50 1 spray intranasal DAILY #16 grams 01/29/23 04/23/23 mcg/actuation nasal spray,suspension (Flonase Allergy Relief) loratadine 10 mg tablet (Claritin) 10 mg PO DAILY #30 tabs 01/29/23 04/23/23 ondansetron 4 mg disintegrating 4 mg PO Q8H PRN nausea and 04/23/23 tablet vomiting #30 tabs Previous Rx's Medication Instructions Recorded fluticasone propionate 50 1 spray intranasal DAILY #16 grams 01/29/23 mcg/actuation nasal spray,suspension (Flonase Allergy Relief) loratadine 10 mg tablet (Claritin) 10 mg PO DAILY #30 tabs 01/29/23 ondansetron 4 mg disintegrating 4 mg PO Q8H PRN nausea and 04/23/23 tablet vomiting #30 tabs Allergies Allergy/AdvReac Type Severity Reaction Status Date / Time aspirin AdvReac Intermediate Nausea Unverified 04/23/23 08:25 General Stated Complaint: GenMedical SANTHOSH: 3 Review of Systems All systems reviewed & are unremarkable except as noted in HPI and below Constitutional Constitutional: Denies chills, Denies fever(s) and Reports weakness Cardiovascular Cardiovascular: Denies chest pain and Denies dyspnea Respiratory Respiratory: Denies cough and Denies dyspnea Gastrointestinal Gastrointestinal: Denies abdominal pain Musculoskeletal Musculoskeletal: Denies joint swelling Integumentary/Breasts Skin/Breast: Denies rash Neurologic Neurologic: Reports weakness Exam Const General: no acute distress Orientation: alert HENMT Head: normal to inspection Ears: external ears normal and TM's normal bilaterally General nose exam: external nose normal Mouth: moist mucous membranes Throat: uvula midline Eyes General: appearance normal, both eyes and all related structures Neck Neck: normal visual inspection Resp Effort & Inspection: normal respiratory effort and able to speak in complete sentences Auscultation: clear to auscultation bilaterally Cardio Rate: regular rate Heart Sounds: no murmurs Skin General skin exam: no rashes or lesions noted Neuro General: patient alert and patient oriented x3 Extrem General: normal to inspection Psych Mental Status: mental status grossly normal Course Vital Signs Vital signs: Vital Signs Temperature 37.0 C 04/23/23 08:22 Pulse 91 H 04/23/23 08:22 Respiratory Rate 18 04/23/23 08:22 Blood Pressure 125/90 04/23/23 08:22 Pulse Oximetry 99 04/23/23 08:22 Temperature 37.0 C 04/23/23 08:27 Temperature Source Temporal Artery Scan 04/23/23 08:27 Pulse 91 H 04/23/23 08:27 Respiratory Rate 18 04/23/23 08:32 Respiratory Effort Normal, Non-Labored 04/23/23 08:32 Respiratory Depth Normal 04/23/23 08:32 Respiratory Pattern Normal 04/23/23 08:32 Blood Pressure 125/90 04/23/23 08:27 Blood Pressure Position Sitting 04/23/23 08:27 Pulse Oximetry 99 04/23/23 08:27 Oxygen Delivery Method Room Air 04/23/23 08:27 Oxygen Flow Rate 0 04/23/23 08:27 Medical Decision Making 28-year-old female who has a history of migraines, comes in with 1 week of multiple symptoms, stating she has had bodyaches, runny nose, sore throat, started to have nausea vomiting and pain similar to prior migraines the last few days. She denies any fevers, no IV drug use, denies any chest pain. She is conscious alert and oriented x 4 on arrival with normal gait, mild erythema posterior pharynx with midline uvula, no submandibular swelling, no pain over the hyoid, no restricted neck movements. She has clear lungs, no murmurs, no leg swelling or calf tenderness. She states the pain in her head is in the front part of her head similar to prior migraines and has slowly been worsening is not the worst of her life. Symptoms seem consistent with a upper respiratory infection and likely dehydration causing migraine, will treat her symptoms with IV fluids and droperidol, obtain a Fluvid, CBC, CMP and reassess Patient requesting discharge does not want a wait for her fluid test, blood work without significant abnormalities, she feels much better after fluids and droperidol. Still no deficits on neuroexam, no meningismus, do not feel any imaging indicated. She is stable for discharge, advised to follow-up with primary care if not better this week and return precautions given Differential Diagnosis Differential Diagnosis: Flu, COVID, sinusitis, migraine Medical Records Medical records reviewed: Yes I reviewed the patient's medical records. Lab Data Lab results reviewed: Yes I reviewed the patient's lab results. ECG Data Attestation: I personally reviewed and interpreted this ECG (s) as follows: Prior ECG tracings: not available for review Interpretation: Sinus rhythm, rate of 89, [place] 139, no STEMI Quality:SDOH Health Related Social Needs: No Data to Display PFSH All Active Problems (Updated 04/23/23 @ 09:40 by Chris Kendall MD) Nausea & vomiting (Acute) Body aches (Acute) Migraine (Chronic) Exposure to COVID-19 virus (Acute) Dental infection (Acute) Swelling of left eyelid (Acute) Conjunctivitis (Acute) Contraceptive management (Acute) 03/2014 Nexplanon 07/2016 Nexplanon removed. OCPs started. 09/2016 Noncompliant with OCPs. Mirena IUD inserted. 05/2017 Mirena removed, Ortho Evra patch initiated Abnormal weight loss (Acute 12/16/11) 04/17 nutrition consult and lab eval. Anxiety (Acute 01/14/13) BV (bacterial vaginosis) (Acute 03/20/17) Breakthrough bleeding on Nexplanon (Acute 03/16/15) Chlamydia (Acute 04/15/14) 05/2014 neg LEANNE. 06/04/15 New infection. Rx with Azithromycin 03/2016 ? new infection vs partner never treated. Rx with Azithromycin for both pt and her partner. 04/28/16 LEANNE - no GC/CT. Pt has been counseled regarding condoms. Constipation (Acute 01/03/12) Dental caries (Acute 12/16/11) Depression (Acute 05/02/14) Eczema (Acute 06/29/12) Excessive and frequent menstruation (Acute 01/03/12) Headache (Acute 12/16/11) IUD (intrauterine device) in place (Acute 09/08/16) Idiopathic scoliosis (Acute 12/16/11) Learning difficulty (Acute 12/16/11) Learning difficulty (Acute 12/16/11) thumb wound (Acute) Medical History Dysmenorrhea in adolescent improved with hormonal contraception. Frequent headaches ? menstrual related. Chlamydia infection 04/17/14. Treated with neg LEANNE. 06/04/15 New infection. Rx with Azithromycin 03/29/2016 Rx with Azithromycin. LEANNE neg 05/02/16. BV (bacterial vaginosis) 11/2016. Rx with Metronidazole 03/20/17. Rx with Metronidazole. Surgical History Repair of umbilical hernia (~2010) Family History Mother No problems noted. Other Graves disease Social History Smoking/Tobacco Use Status: Never Smoking risk assessment performed?: Yes Alcohol Intake: never Drug use: Daily Substance use type: marijuana Housing: house Number of Children: 0 current occupation: [employer] [place] [employer] Sexually active: Yes Seatbelt use: always Do you feel safe at home: Yes Do you feel safe in your relationship?: Yes Female Reproductive History Menstrual control method: patch Discharge Plan Disposition Patient Disposition: Home Condition: Stable Discharge Details Clinical Impression: Migraine, Body aches, Nausea & vomiting Primary Care Provider: Lucy Waters ED Provider: Chris Kendall [place] Meds and New Rx's Prescriptions: New ondansetron 4 mg tablet,disintegrating 4 mg PO Q8H PRN (Reason: nausea and vomiting) Qty: 30 0RF Continued fluticasone propionate [Flonase Allergy Relief] 50 mcg/actuation sp ray,suspension 1 spray intranasal DAILY Qty: 16 0RF Rx Instructions: administer into each nostril loratadine [Claritin] 10 mg tablet 10 mg PO DAILY Qty: 30 0RF Discharge Instructions Instructions: Acute Nausea and Vomiting (ED), General Headache (ED) Additional Instructions: Follow-up with your primary care provider this week if not feeling better If you feel more ill, have persistent vomiting despite the prescribed medication, or difficulty breathing return to the emergency department for reevaluation
[2023-04-23 08:58] LABS: Abs Immature Grans 0.01 10^3/uL (0.0-0.06); Absolute Basophil Count 0.04 10^3/uL (0.0-0.2); Absolute Eosinophil Count 0.37 10^3/uL (0.0-0.7); Absolute Monocyte Count 0.71 10^3/uL (0.1-0.8); Absolute Neutrophil Count 5.52 10^3/uL (1.2-6.7); Basophils % 0.5; Eosinophils % 4.9; HCT 40.6 % (36.0-46.0); HGB 13.6 g/dL (11.2-15.7); Immature Grans % 0.1; Lymphocytes % 11.9; MCH 29.4 pg (27.0-33.0); MCHC 33.5 % (32.0-36.0); MCV 88 fL (80-95); MPV 10.6 fL (8.0-11.0); Monocytes % 9.4; Neutrophils % 73.2; Platelet Count 216 10^3/uL (130-400); RBC 4.63 10^6/uL (3.93-5.22); RDW 12.2 % (11.7-14.6); RDW-SD 39.4 fL; WBC 7.55 10^3/uL (4.4-10.8)
[2023-04-23 09:00] LABS: Bilirubin Negative (Negative); Blood Negative (Negative); Clarity Sl Cloudy (Clear); Glucose Negative (Negative); Ketones >=160 mg/dL (Negative); Leukocyte Esterase Small (Negative); Nitrite Negative (Negative)
[2023-04-23 09:06] LABS: Bacteria Many HPF (Negative); C & S Indicated? No/Sq. Contamination; Casts Negative LPF (Negative); Crystals Negative HPF (Negative); Epithelial Cells Many HPF (Negative); Mucus Trace (Negative); RBC 0-2 HPF (0-2)
[2023-04-23] MEDS: Ketorolac 15 MG/ML VIAL IVP (09:08)
[2023-04-23] MEDS: Droperidol 5 MG/2 ML VIAL 2.5 MG IVP (09:08)
[2023-04-23] MEDS: Normal Saline 1,000 ML 1000 ML IV (09:09)
[2023-04-23 09:16] LABS: HCG Qual (Serum) Negative
[2023-04-23 09:22] LABS: ALT 20 U/L (14-59); AST 16 U/L (15-37); Albumin 3.8 g/dL (3.4-5.0); Alkaline Phosphatase 81 U/L (46-116); Anion Gap 11.6 mmol/L (3-11); BUN 8 mg/dL (7-18); Bilirubin, Total 0.4 mg/dL (0.2-1.0); CO2 26.4 mmol/L (21.0-32.0); CREATININE 0.7 mg/dL (0.55-1.02); Calcium 8.7 mg/dL (8.5-10.1); Chloride 100 mmol/L (98-107); Estimated GFR 121.49 (mL/min/1.73m2); Glucose 99 mg/dL (74-106); Lipase 18 U/L (16-77); Magnesium 1.9 mg/dL (1.8-2.4); Potassium 3.4 mmol/L (3.5-5.1); Sodium 138 mmol/L (136-145)
[2023-04-23 09:48] LABS: Influenza A PCR Negative (Negative); Influenza B PCR Negative (Negative); RSV PCR Negative (Negative)
[2023-04-23 09:56] LABS: COVID-19 PCR Positive (Negative); Source Nasopharynx
--- NOTE | 2023-04-23 09:57 | NUR.NOTE ---
Nursing Note: called patient to give her her covid results
--- NOTE | 2023-04-25 09:47 | NUR.NOTE ---
Accessed Pt chart to obtain the antibiotic prescribed to the pt for this visit. There was not one ordered. I gave the specimen document to Dr Siddiqui to follow up with Pt as the Strep test was positive.
--- NOTE | 2023-04-25 11:01 | W.ED.FU ---
Date of service: 04/25/23 Time of Service: 11:01 Follow Up Plan: Throat culture growing strep A. I called and spoke with the patient, she notes feeling better but continues to have scratchy sore throat with postnasal drip and ear fullness. Discussed results of test and patient treatment options. Patient electing antibiotic treatment. Penicillin VK 500 twice daily x 10 days called to her pharmacy at [facility]. Patient was encouraged to follow-up with her doctor and return for any worsening or new concerning symptoms.
== END 2023-04-23 09:43 | disposition home or self-care (01) ==
PROVIDERS: Emergency Provider Emergency Medicine; PCP Internal Medicine
DX: G43.909 Migraine, unspecified, not intractable, without status migrainosus (principal); M79.10 Myalgia, unspecified site; R11.2 Nausea with vomiting, unspecified; Z11.52 Encounter for screening for COVID-19
CPT/HCPCS: 36415; 80053; 83690; 87637; 87880; 93005; 96361; 96374; 96375; 99284; 81003; 81015; 83735; 84443; 84703; 85025; 87081; 93010; J1790; J1885

== ENCOUNTER 2023-08-05 20:42 | Emergency (ER) | payer BC, SELFPAY ==
[2023-08-05 20:49] VITALS: BP 127/73; PULSE 114; RESP 20; TEMP 37.6; O2SAT 98
[2023-08-05] MEDS: Amoxicillin 500 MG CAP 1000 MG PO (21:46)
--- NOTE | 2023-08-06 20:38 | W.ED.GENAD ---
Discharge Plan Disposition Patient Disposition: Home Condition: Stable Discharge Details Clinical Impression: Otitis media Primary Care Provider: Lucy Waters ED Provider: Lisa Braden Home Meds and New Rx's Prescriptions: New amoxicillin 500 mg capsule 1,000 mg PO TID 7 Days Qty: 42 0RF No Action fluoxetine 20 mg capsule 20 mg PO DAILY Discharge Instructions Instructions: Ear Infection (ED) Additional Instructions: Take antibiotics as prescribed Yogurt daily while on antibiotics Ibuprofen and Tylenol for pain, Sudafed as needed for discomfort Discharge Data Discharge Date/Time-TO BE ENTERED AT DEPARTURE: 08/05/23 22:11 HPI General Date/Time Provider Initiated Documentation: 08/05/23 20:52. HPI Narrative: This 28-year-old female presents with upper respiratory symptoms for the past 3 days with right ear pain. 3 negative COVID test at home. Denies any shortness of breath. Denies fever or chills. Has not taken any meds prior to arrival per patient. Denies any chance of . Predominantly presents secondary to ear pain. Related Data Home Medications Medication Instructions Recorded Confirmed amoxicillin 500 mg capsule 1,000 mg (2 x 500 mg) PO TID 7 08/05/23 days #42 caps fluoxetine 20 mg capsule 20 mg PO DAILY 08/05/23 08/05/23 Previous Rx's Medication Instructions Recorded amoxicillin 500 mg capsule 1,000 mg (2 x 500 mg) PO TID 7 08/05/23 days #42 caps Allergies Allergy/AdvReac Type Severity Reaction Status Date / Time aspirin AdvReac Intermediate Nausea Unverified 08/05/23 20:56 General Stated Complaint: RespSymp SANTHOSH: 4 Exam Narrative Exam Narrative: This 28-year-old female presenting with right ear pain, injected TM, dull, bulging, boggy nasal mucosa, lungs clear to auscultation bilaterally, no respiratory distress, oropharynx patent, uvula midline Course Vital Signs Vital signs: Vital Signs Temperature 37.6 C H 08/05/23 20:49 Pulse 114 H 08/05/23 20:49 Respiratory Rate 20 08/05/23 20:49 Blood Pressure 127/73 08/05/23 20:49 Pulse Oximetry 98 08/05/23 20:49 Temperature 37.6 C H 08/05/23 20:49 Temperature Source Skin 08/05/23 20:49 Pulse 114 H 08/05/23 20:49 Respiratory Rate 20 08/05/23 20:49 Respiratory Effort Normal 08/05/23 20:55 Blood Pressure 127/73 08/05/23 20:49 Blood Pressure Position Sitting 08/05/23 20:49 Pulse Oximetry 98 08/05/23 20:49 Oxygen Delivery Method Room Air 08/05/23 20:49 Oxygen Flow Rate 0 08/05/23 20:49 Pain Level 8 08/05/23 20:49 Comment pain in bilat ears 08/05/23 20:49 Medical Decision Making 28-year-old female, no acute distress, otitis media on right, will initiate antibiotics discussed viral versus bacterial, patient prefers to have prescription. Supportive care with ibuprofen and Tylenol encouraged and pseudoephedrine for congestion and with Flonase for the next 2 weeks for symptom control. Return precautions reviewed patient's was understanding was discharged home pulse of 98 stable blood pressure Quality:SDOH Health Related Social Needs: No Data to Display PFSH All Active Problems (Updated 08/05/23 @ 21:34 by MATT Reese) Otitis media (Acute) Exposure to COVID-19 virus (Acute) Dental infection (Acute) Swelling of left eyelid (Acute) Conjunctivitis (Acute) Contraceptive management (Acute) 03/2014 Nexplanon 07/2016 Nexplanon removed. OCPs started. 09/2016 Noncompliant with OCPs. Mirena IUD inserted. 05/2017 Mirena removed, Ortho Evra patch initiated Abnormal weight loss (Acute 12/16/11) 04/17 nutrition consult and lab eval. Anxiety (Acute 01/14/13) BV (bacterial vaginosis) (Acute 03/20/17) Breakthrough bleeding on Nexplanon (Acute 03/16/15) Chlamydia (Acute 04/15/14) 05/2014 neg LEANNE. 06/04/15 New infection. Rx with Azithromycin 03/2016 ? new infection vs partner never treated. Rx with Azithromycin for both pt and her partner. 04/28/16 LEANNE - no GC/CT. Pt has been counseled regarding condoms. Constipation (Acute 01/03/12) Dental caries (Acute 12/16/11) Depression (Acute 05/02/14) Eczema (Acute 06/29/12) Excessive and frequent menstruation (Acute 01/03/12) Headache (Acute 12/16/11) IUD (intrauterine device) in place (Acute 09/08/16) Idiopathic scoliosis (Acute 12/16/11) Learning difficulty (Acute 12/16/11) Learning difficulty (Acute 12/16/11) thumb wound (Acute) Medical History Dysmenorrhea in adolescent improved with hormonal contraception. Frequent headaches ? menstrual related. Chlamydia infection 04/17/14. Treated with neg LEANNE. 06/04/15 New infection. Rx with Azithromycin 03/29/2016 Rx with Azithromycin. LEANNE neg 05/02/16. BV (bacterial vaginosis) 11/2016. Rx with Metronidazole 03/20/17. Rx with Metronidazole. Surgical History Repair of umbilical hernia (~2010) Family History Mother No problems noted. Other Graves disease Social History Smoking/Tobacco Use Status: Never Smoking risk assessment performed?: Yes Alcohol Intake: never Drug use: Daily Substance use type: marijuana Housing: house Number of Children: 0 current occupation: [employer] [place] [employer] Sexually active: Yes Seatbelt use: always Do you feel safe at home: Yes Do you feel safe in your relationship?: Yes Female Reproductive History Menstrual control method: patch
== END 2023-08-05 22:11 | disposition home or self-care (01) ==
LOC: ER 21:51
PROVIDERS: Emergency Provider Physician Assistant; PCP Internal Medicine
DX: H66.91 Otitis media, unspecified, right ear (principal)
CPT/HCPCS: 99283

== ENCOUNTER 2024-02-06 18:24 | Emergency (ER) | payer BC, SELFPAY ==
[2024-02-06 18:26] VITALS: BP 121/80; PULSE 103; RESP 15; TEMP 36.6; O2SAT 98
--- NOTE | 2024-02-06 18:30 | DI.RAD_ITS ---
Exam(s) XR CHEST 2V PA LATERAL EXAM: XR CHEST 2V PA LATERAL CLINICAL HISTORY: Swallowed tooth TECHNIQUE: 2D digital imaging was performed. Two views. COMPARISON: CR CHEST 2 VIEWS PA,LAT from 04/30/2014 FINDINGS: HEART: Normal size. Aorta: Not dilated. PULMONARY VASCULATURE: Normal. MEDIASTINUM: Unremarkable. LUNGS: Clear. PLEURAL SPACE: No pleural effusion or pneumothorax. BONE:Mild dextroscoliosis. SOFT TISSUES: Unremarkable. No radiopaque foreign body identified in the field of view. IMPRESSION: No acute abnormality. DATA REPOSITORY: RADIATION DOSE DELIVERED:
--- NOTE | 2024-02-06 18:30 | DI.RAD_ITS ---
Exam(s) XR SOFT TISSUE NECK EXAM: XR SOFT TISSUE NECK CLINICAL HISTORY: Swallowed tooth. TECHNIQUE: 2D digital imaging was performed. COMPARISON: No exams were available for comparison FINDINGS: BONES: No acute fracture is present. Visualized vertebral body and disc heights are maintained. The alignment is normal. SOFT TISSUE:Airway is patent without radiopaque foreign body. Epiglottis is not enlarged. Prevertebra l soft tissues appear unremarkable. IMPRESSION: Unremarkable radiographs of soft tissue neck. DATA REPOSITORY: RADIATION DOSE DELIVERED:
[2024-02-06 18:31] VITALS: BP 121/80; PULSE 103; RESP 15; TEMP 36.6; O2SAT 98
--- NOTE | 2024-02-06 18:42 | ED.GENADUL_ITS ---
Discharge Plan Disposition Patient Disposition: Home Condition: Stable Discharge Details Clinical Impression: Foreign body sensation in throat Primary Care Provider: Lucy Waters ED Provider: Mayra Copeland Home Meds and New Rx's Prescriptions: No Action fluoxetine 20 mg capsule 20 mg PO DAILY Discharge Instructions Instructions: Sore throat in adults Additional Instructions: At this time no visualized foreign body on the x-rays. You may have scraped or scratched her throat when this occurred. If the x-rays come back abnormal I will give you a call. Follow up with primary care provider in 3-5 days. Return to ED sooner if any worsening trouble swallowing, shortness of breath or concerns. Referrals: Lucy Waters [Primary Care Provider] - 5 days HPI General Mode of arrival: ambulatory . Date/Time Provider Initiated Documentation: 02/06/24 18:33 . Limitations to Documentation: no limitations . Information obtained by: patient, RN notes reviewed and old records reviewed . HPI Narrative: 28-year-old female approximately an hour ago states that she may have swallowed a left upper molar that she reports was about 2 come out. She now states that she has foreign body sensation to her anterior throat. She reports that she ate a wrap afterwards and vomited she did not see that she was at that time. She was able to drink some water and shasha peter afterwards. She is speaking in full sentences, lungs are clear to auscultation bilaterally. She does have a history of poor dental hygiene. No other associated symptoms or complaints at this time. Related Data Home Medications ?Medication ?Instructions ?Recorded ?Confirmed fluoxetine 20 mg capsule 20 mg PO DAILY 08/05/23 02/06/24 Allergies Allergy/AdvReac Type Severity Reaction Status Date / Time aspirin AdvReac Intermediate Nausea Unverified 02/06/24 18:32 General Stated Complaint: DentalOral SANTHOSH: 3 Review of Systems ENT Ears, Nose, Mouth, and Throat: Reports as per HPI and Reports neck pain (Foreign body sensation) Musculoskeletal Musculoskeletal: Reports neck pain (Foreign body sensation) Course Vital Signs Vital signs: Vital Signs Temperature 36.6 C 02/06/24 18:26 Pulse 103 H 02/06/24 18:26 Respiratory Rate 15 02/06/24 18:26 Blood Pressure 121/80 02/06/24 18:26 Pulse Oximetry 98 02/06/24 18:26 Temperature 36.6 C 02/06/24 18:31 Pulse 103 H 02/06/24 18:31 Respiratory Rate 15 02/06/24 18:31 Respiratory Effort Normal 02/06/24 18:31 Blood Pressure 121/80 02/06/24 18:31 Blood Pressure Position Sitting 02/06/24 18:31 Pulse Oximetry 98 02/06/24 18:31 Oxygen Delivery Method Room Air 02/06/24 18:31 Oxygen Flow Rate 0 02/06/24 18:26 Medical Decision Making X-ray chest and soft tissue neck ordered. Patient declining UPT test states that she is not sexually active. I did okay for her to have the x-rays without the UPT. No obvious foreign body noted on x-ray imaging. Will give dexamethasone 4 mg p.o. and a GI cocktail. I did discuss this with the patient she verbalized understanding. This text was generated using Corensication system, please disregard any oddities of phrase or misspellings. Imaging Data Radiologic Study: Imaging: X-Ray Radiologist's impression: COMPARISON: CR XR CHEST 2V PA LATERAL 02/06/2024 7:30 PM FINDINGS: Airway: Nor mal. No abnormal narrowing. Soft tissues: No calcific density identified in the soft tissues of the hypopharynx.. Bones/joints: Unremarkable. IMPRESSION: No calcific density identified in the soft tissues of the hypopharynx.. Consider CT soft tissue neck for better visualization if clinically indicated Thank you for allowing us to participate in the care of your patient. Dictated and Authenticated by: Jaspreet Soto MD Radiologic Study #2: Imaging: X-Ray Radiologist's impression: COMPARISON: CT RENAL COLIC WO CONTRAST 07/19/2017 7:33 AM FINDINGS: Lungs: Unremarkable. No consolidation. Pleural spaces: Unremarkable. No pleural effusion. No pneumothorax. Heart/Mediastinum: Unremarkable. No cardiomegaly. Bones/joints: Unremarkable. Soft tissues: No metallic foreign body identified.. IMPRESSION: No metallic foreign body identified.. No focal consolidation Recommend CT soft tissue neck if clinically indicated Thank you for allowing us to participate in the care of your patient. Dictated and Authenticated by: Jaspreet Soto MD Quality:SDOH Health Related Social Needs: No Data to Display PFSH All Active Problems (Updated 02/06/24 @ 20:17 by Mayra Copeland NP) Foreign body sensation in throat (Acute) Exposure to COVID-19 virus (Acute) Dental infection (Acute) Swelling of left eyelid (Acute) Conjunctivitis (Acute) Contraceptive management (Acute) 03/2014 Nexplanon 07/2016 Nexplanon removed. OCPs started. 09/2016 Noncompliant with OCPs. Mirena IUD inserted. 05/2017 Mirena removed, Ortho Evra patch initiated Abnormal weight loss (Acute 12/16/11) 04/17 nutrition consult and lab eval. Anxiety (Acute 01/14/13) BV (bacterial vaginosis) (Acute 03/20/17) Breakthrough bleeding on Nexplanon (Acute 03/16/15) Chlamydia (Acute 04/15/14) 05/2014 neg LEANNE. 06/04/15 New infection. Rx with Azithromycin 03/2016 ? new infection vs partner never treated. Rx with Azithromycin for both pt and her partner. 04/28/16 LEANNE - no GC/CT. Pt has been counseled regarding condoms. Constipation (Acute 01/03/12) Dental caries (Acute 12/16/11) Depression (Acute 05/02/14) Eczema (Acute 06/29/12) Excessive and frequent menstruation (Acute 01/03/12) Headache (Acute 12/16/11) IUD (intrauterine device) in place (Acute 09/08/16) Idiopathic scoliosis (Acute 12/16/11) Learning difficulty (Acute 12/16/11) Learning difficulty (Acute 12/16/11) thumb wound (Acute) Medical History Dysmenorrhea in adolescent improved with hormonal contraception. Frequent headaches ? menstrual related. Chlamydia infection 04/17/14. Treated with neg LEANNE. 06/04/15 New infection. Rx with Azithromycin 03/29/2016 Rx with Azithromycin. LEANNE neg 05/02/16. BV (bacterial vaginosis) 11/2016. Rx with Metronidazole 03/20/17. Rx with Metronidazole. Surgical History Repair of umbilical hernia (~2010) Family History Mother No problems noted. Other Graves disease Social History Smoking/Tobacco Use Status: Never Smoking risk assessment performed?: Yes Alcohol Intake: never Drug use: Daily Substance use type: marijuana Housing: house Number of Children: 0 current occupation: [employer] [place] [employer] Sexually active: Yes Seatbelt use: always Do you feel safe at home: Yes Do you feel safe in your relationship?: Yes Female Reproductive History Menstrual control method: patch
[2024-02-06] MEDS: Dexamethasone 4 MG/ML VIAL PO (19:52)
[2024-02-06 20:18] VITALS: BP 127/88; PULSE 74; RESP 16; TEMP 36.7; O2SAT 99
--- NOTE | 2024-02-06 20:39 | DI.VRAD_ITS ---
PROCEDURE INFORMATION: Exam: XR Soft Tissue Neck Exam date and time: 02/06/2024 7:32 PM Age: 28 years old Clinical indication: Patient HX: Swallowed tooth, feels it is stuck in throat TECHNIQUE: Imaging protocol: Radiologic exam of the soft tissues of the neck. COMPARISON: CR XR CHEST 2V PA LATERAL 02/06/2024 7:30 PM FINDINGS: Airway: Normal. No abnormal narrowing. Soft tissues: No calcific density identified in the soft tissues of the hypopharynx.. Bones/joints: Unremarkable. IMPRESSION: No calcific density identified in the soft tissues of the hypopharynx.. Consider CT soft tissue neck for better visualization if clinically indicated Dictated and Authenticated by: Jaspreet oSto MD. Ordering:HANDY Nunez MD
--- NOTE | 2024-02-06 20:40 | DI.VRAD_ITS ---
PROCEDURE INFORMATION: Exam: XR Chest Exam date and time: 02/06/2024 7:30 PM Age: 28 years old Clinical indication: Other: Swallowed tooth, feels it is stuck in throat TECHNIQUE: Imaging protocol: Radiologic exam of the chest. Views: 2 views. COMPARISON: CT RENAL COLIC WO CONTRAST 07/19/2017 7:33 AM FINDINGS: Lungs: Unremarkable. No consolidation. Pleural spaces: Unremarkable. No pleural effusion. No pneumothorax. Heart/Mediastinum: Unremarkable. No cardiomegaly. Bones/joints: Unremarkable. Soft tissues: No metallic foreign body identified.. IMPRESSION: No metallic foreign body identified.. No focal consolidation Recommend CT soft tissue neck if clinically indicated Dictated and Authenticated by: Jaspreet Soto MD. Ordering:HANDY Nunez MD
== END 2024-02-06 20:18 | disposition home or self-care (01) ==
PROVIDERS: Emergency Provider Registered Nurse Emergency; PCP Internal Medicine
DX: R09.A2 Foreign body sensation, throat (principal)
CPT/HCPCS: 99283; 70360; 71046; J1100

== ENCOUNTER 2024-06-23 19:05 | Emergency (ER) | payer SELFPAY ==
[2024-06-23 19:12] VITALS: BP 119/84; PULSE 89; RESP 16; TEMP 36.7; O2SAT 100
[2024-06-23 19:16] VITALS: BP 119/84; PULSE 89; RESP 16; TEMP 36.7; O2SAT 100
[2024-06-23 19:36] LABS: Bilirubin Negative (Negative); Blood Moderate (Negative); Clarity Clear (Clear); Glucose Negative (Negative); Ketones Negative (Negative); Leukocyte Esterase Negative (Negative); Nitrite Positive (Negative); Specific Gravity >= 1.030 (1.005-1.025); Urobilinogen 0.2 mg/dL (Up to 0.2)
[2024-06-23 19:53] LABS: Bacteria Few HPF (Negative); C & S Indicated? No; Casts Negative LPF (Negative); Crystals Negative HPF (Negative); Epithelial Cells Few HPF (Negative); Mucus Negative (Negative); Other Cells Rare Transitional (Negative)
--- NOTE | 2024-06-23 19:57 | ED.GENADUL_ITS ---
Discharge Plan Disposition Patient Disposition: Home Condition: Good Discharge Details Clinical Impression: Acute cystitis Primary Care Provider: Lucy Waters ED Provider: Amanda Torres Home Meds and New Rx's Prescriptions: New nitrofurantoin monohyd/m-cryst [Macrobid] 100 mg capsule 100 mg PO BID Qty: 8 0RF Rx Instructions: must administer with a meal/food Continued fluoxetine 20 mg capsule 20 mg PO DAILY Discharge Instructions Instructions: Urinary Tract Infection, Adult ED Additional Instructions: Antibiotic twice a day for the next 5 days. Call your primary care doctor to schedule an appointment to followup on your visit here. Return to the emergency department for new or worsening symptoms including fever, back pain, or if your symptoms are not improving after 48 hours. Referrals: Lucy Waters [Primary Care Provider] - [facility] General Mode of arrival: ambulatory . Date/Time Provider Initiated Documentation: 06/23/24 19:20 . Limitations to Documentation: no limitations . Information obtained by: patient . HPI Narrative: 29yo F with hx of depression presenting with concern for UTI. Has had dysuria, frequency, hematuria, and mild suprapubic pain starting on Monday and worsening since then. Feels similar to prior UTIs. Most recent prior UTI ~ 1 year ago. No fevers, chills, vomiting, or flank pain. Otherwise in her usual state of health. Related Data Home Medications ?Medication ?Instructions ?Recorded ?Confirmed fluoxetine 20 mg capsule 20 mg PO DAILY 08/05/23 02/06/24 nitrofurantoin 100 mg PO BID #8 caps 06/23/24 monohydrate/macrocrystals 100 mg capsule (Macrobid) Previous Rx's ?Medication ?Instructions ?Recorded nitrofurantoin 100 mg PO BID #8 caps 06/23/24 monohydrate/macrocrystals 100 mg capsule (Macrobid) Allergies Allergy/AdvReac Type Severity Reaction Status Date / Time aspirin AdvReac Intermediate Nausea Unverified 02/06/24 18:32 General Stated Complaint: Urinary SANTHOSH: 4 Review of Systems Narrative: see HPI Exam Narrative Exam Narrative: General: Alert, well appearing, well nourished, in no acute distress. Head: Normocephalic, atraumatic Neck: Trachea midline, ?Neck supple. Cardiac: ?No cyanosis. Well perfused. Resp: No respiratory distress. Speaking in full sentences. Abd: ?Soft, non-distended, nontender : ?Mild suprapubic tenderness. No CVA tenderness. Extremities: ?No deformities.? No peripheral edema. Neurologic: GCS 15. ? Moves all extremities freely against gravity Course Vital Signs Vital signs: Vital Signs Temperature 36.7 C 06/23/24 19:12 Pulse 89 06/23/24 19:12 Respiratory Rate 16 06/23/24 19:12 Blood Pressure 119/84 06/23/24 19:12 Pulse Oximetry 100 06/23/24 19:12 Temperature 36.7 C 06/23/24 19:16 Pulse 89 06/23/24 19:16 Respiratory Rate 16 06/23/24 19:16 Blood Pressure 119/84 06/23/24 19:16 Pulse Oximetry 100 06/23/24 19:16 Oxygen Delivery Method Room Air 06/23/24 19:16 Oxygen Flow Rate 0 06/23/24 19:16 Pain Level 6 06/23/24 19:16 Lab/Test Results Lab/Test Results: Laboratory Tests Range/Units 06/23/24 19:28 Urine Color (Yellow) Yellow Urine Clarity (Clear) Clear Urine pH (5-8) 6.0 Ur Specific Nimitz (1.005-1.025) >= 1.030 H Urine Protein (Neg-Trace) mg/dL Negative Urine Ketones (Negative) mg/dL Negative Urine Blood (Negative) Moderate H Urine Nitrite (Negative) Positive H Urine Bilirubin (Negative) Negative Urine Urobilinogen (Up to 0.2) mg/dL 0.2 Ur Leukocyte Esterase (Negative) Negative Urine RBC (0-2) HPF 5-10 H Urine WBC (0-5) HPF 3-5 Ur Epithelial Cells (Negative) HPF Few Urine Crystals (Negative) HPF Negative Urine Bacteria (Negative) HPF Few Urine Casts (Negative) LPF Negative Urine Mucus (Negative) Negative Urine Other (Negative) Rare Transitional Ur Culture Indicated? No Urine Glucose (Negative) mg/dL Negative POC- Test(urine) Negative Medical Decision Making 29yo F with hx of depression presenting with UTI symptoms for 3 days. Vital signs reassuring on arrival, mild suprapubic tenderness on exam with no CVA tenderness. Systemically well. Not septic. Not suggestive of pyelonephritis o r nephrolithiasis or ovarian pathology. Would not get bloodwork CT/US imaging. UA sent and suggestive of infection; will treat with 5 day course of macrobid. Discharged home; discharge instructions and return precautions were reviewed with patient who verbalized understanding. All questions were answered and she is in full agreement with the plan. Lab Data Lab results reviewed: Yes I reviewed the patient's lab results. Labs: Laboratory Tests Range/Units 06/23/24 19:28 Urine Color (Yellow) Yellow Urine Clarity (Clear) Clear Urine pH (5-8) 6.0 Ur Specific Nimitz (1.005-1.025) >= 1.030 H Urine Protein (Neg-Trace) mg/dL Negative Urine Ketones (Negative) mg/dL Negative Urine Blood (Negative) Moderate H Urine Nitrite (Negative) Positive H Urine Bilirubin (Negative) Negative Urine Urobilinogen (Up to 0.2) mg/dL 0.2 Ur Leukocyte Esterase (Negative) Negative Urine RBC (0-2) HPF 5-10 H Urine WBC (0-5) HPF 3-5 Ur Epithelial Cells (Negative) HPF Few Urine Crystals (Negative) HPF Negative Urine Bacteria (Negative) HPF Few Urine Casts (Negative) LPF Negative Urine Mucus (Negative) Negative Urine Other (Negative) Rare Transitional Ur Culture Indicated? No Urine Glucose (Negative) mg/dL Negative Quality:SDOH Health Related Social Needs: No Data to Display PFSH All Active Problems (Updated 06/23/24 @ 19:53 by Amanda Torres MD) Acute cystitis (Acute) Exposure to COVID-19 virus (Acute) Dental infection (Acute) Swelling of left eyelid (Acute) Conjunctivitis (Acute) Contraceptive management (Acute) 03/2014 Nexplanon 07/2016 Nexplanon removed. OCPs started. 09/2016 Noncompliant with OCPs. Mirena IUD inserted. 05/2017 Mirena removed, Ortho Evra patch initiated Abnormal weight loss (Acute 12/16/11) 04/17 nutrition consult and lab eval. Anxiety (Acute 01/14/13) BV (bacterial vaginosis) (Acute 03/20/17) Breakthrough bleeding on Nexplanon (Acute 03/16/15) Chlamydia (Acute 04/15/14) 05/2014 neg LEANNE. 06/04/15 New infection. Rx with Azithromycin 03/2016 ? new infection vs partner never treated. Rx with Azithromycin for both pt and her partner. 04/28/16 LEANNE - no GC/CT. Pt has been counseled regarding condoms. Constipation (Acute 01/03/12) Dental caries (Acute 12/16/11) Depression (Acute 05/02/14) Eczema (Acute 06/29/12) Excessive and frequent menstruation (Acute 01/03/12) Headache (Acute 12/16/11) IUD (intrauterine device) in place (Acute 09/08/16) Idiopathic scoliosis (Acute 12/16/11) Learning difficulty (Acute 12/16/11) Learning difficulty (Acute 12/16/11) thumb wound (Acute) Medical History Dysmenorrhea in adolescent improved with hormonal contraception. Frequent headaches ? menstrual related. Chlamydia infection 04/17/14. Treated with neg LEANNE. 06/04/15 New infection. Rx with Azithromycin 03/29/2016 Rx with Azithromycin. LEANNE neg 05/02/16. BV (bacterial vaginosis) 11/2016. Rx with Metronidazole 03/20/17. Rx with Metronidazole. Surgical History Repair of umbilical hernia (~2010) Family History Mother No problems noted. Other Graves disease Social History Smoking/Tobacco Use Status: Never Smoking risk assessment performed?: Yes Alcohol Intake: never Drug use: Daily Substance use type: marijuana Housing: house Number of Children: 0 current occupation: [employer] [place] [employer] Sexually active: Yes Seatbelt use: always Do you feel safe at home: Yes Do you feel safe in your relationship?: Yes Female Reproductive History Menstrual control method: patch
[2024-06-23] MEDS: MacroBID 100 MG CAP PO (20:26)
[2024-06-23] MEDS: MacroBID 100 MG CAP, 2 CAPS/BTL PO (20:49)
== END 2024-06-23 20:50 | disposition home or self-care (01) ==
PROVIDERS: Emergency Provider Student in an Organized Health Care Education/Training Program; PCP Internal Medicine
DX: R10.9 Unspecified abdominal pain (principal); R11.0 Nausea; R30.9 Painful micturition, unspecified; N30.91 Cystitis, unspecified with hematuria
CPT/HCPCS: 81025; 87077; 99283; 81003; 81015; 87086; 87186; 99284

== ENCOUNTER 2024-07-07 04:29 | Emergency (ER) | payer SELFPAY ==
--- NOTE | 2024-07-07 04:30 | DI.CT_ITS ---
Exam(s) CT RENAL COLIC WO CT ABDOMEN PELVIS W EXAM: CT ABDOMEN PELVIS W CLINICAL HISTORY: UTI; mild hydroureter noncon CT; R low back pain. TECHNIQUE: Imaging Protocol: Axial computed tomography images with coronal and sagittal reformatted images were created and reviewed CONTRAST MATERIAL: Intravenous: Omnipaque 350 Contrast volume:75 ml Oral: no COMPARISON: CT RENAL COLIC WO CONTRAST from 07/19/[address] RENAL COLIC WO from 07/07/2024 FINDINGS: ABDOMEN and PELVIS: Lung Bases: No acute findings. Liver: Normal density. No suspicious mass. Gallbladder and biliary tract: No radiodense calculus. No wall thickening or pericholecystic fluid. No biliary dilation. Pancreas: Normal density. No abnormal calcifications or inflammatory process. No evidence of mass. Spleen: Normal. Kidneys: Normal size, contour and axis. Normal bilateral renal perfusion, without defects. 3.5 mill imeter stone upper pole right kidney. slight dilatation of the upper and mid right ureter with some wall thickening and mild surrounding inflammatory changes. No visible ureteral calculus. No suspic ious masses seen. Adrenal glands: No masses seen. Vasculature: Abdominal aorta non-dilated. Soft tissues: Unremarkable. Bladder: No gross wall thickening. No calculi.No focal mass. Bowel: No obstruction. No bowel wall thickening. Appendix normal. Peritoneal cavity: No ascites. No focal collection. No mesenteric inflammatory response. No free air . Bones: Unremarkable for age. Reproductive organs: Unremarkable. Lymph nodes: No pathologically enlarged lymph nodes. IMPRESSION:: Mild right ureteral dilatation, wall thickening and surrounding inflammation could stacey alejo pyelitis versus recently passed stone. Right upper pole renal calculus. RADIATION DOSE DELIVERED: Total DLP DATA REPOSITORY: All CT scans at this facility are submitted to the National Radiology Data Registry (NRDR) Dose Index Registry (DIR) with the [employer] (ACR). RADIATION OPTIMIZATION: All CT scans at this facility use at least one of these dose optimization te chniques: automated exposure control; mA and/or kV adjustment per patient size (includes targeted exa ms where dose is matched to clinical indication); or iterative reconstruction.
[2024-07-07 04:35] VITALS: BP 157/106; PULSE 83; RESP 16; TEMP 36.4; O2SAT 98
--- NOTE | 2024-07-07 04:35 | W.ED.GENAD ---
Discharge Plan Disposition Patient Disposition: Home Condition: Good Discharge Details Clinical Impression: Pyelonephritis Primary Care Provider: Lucy Waters ED Provider: Ben Lancaster Meds and New Rx's Prescriptions: New cefpodoxime 200 mg tablet 200 mg PO BID Qty: 20 0RF Rx Instructions: must administer with a meal/food No Action fluoxetine 20 mg capsule 20 mg PO DAILY Discharge Instructions Instructions: Urinary Tract Infection, Adult ED Additional Instructions: You have a urinary tract infection/pyelonephritis which will require repeat antibiotic course. You will need to take your first dose tomorrow morning. Drink plenty of fluids to stay hydrated. Alternate acetaminophen with ibuprofen for any pain or fever. Follow-up with primary care next week. Return to ED for severe worsening pain, persistent vomiting, continued spiking fevers, other concerns. Referrals: Lucy Waters [Primary Care Provider] - [facility] General Mode of arrival: ambulatory. Date/Time Provider Initiated Documentation: 07/07/24 04:34. Limitations to Documentation: no limitations. Information obtained by: patient and RN notes reviewed. HPI Narrative: Patient presents to ED with right lower back pain and urinary symptoms. Patient was seen here in the ED on the and diagnosed with UTI. She was placed on Macrobid which she completed. She states she did feel better for a few days. Over the last couple of days she has developed some right low back pain that she did not think much of. However, tonight she developed suprapubic pain, urgency, dysuria and worsening right low back pain. She is nauseated. She has vomited once. She denies fever. She did take Azo prior to coming in. Related Data Home Medications ?Medication ?Instructions ?Recorded ?Confirmed fluoxetine 20 mg capsule 20 mg PO DAILY 08/05/23 07/07/24 cefpodoxime 200 mg tablet 200 mg PO BID #20 tabs 07/07/24 Previous Rx's ?Medication ?Instructions ?Recorded cefpodoxime 200 mg tablet 200 mg PO BID #20 tabs 07/07/24 Allergies Allergy/AdvReac Type Severity Reaction Status Date / Time aspirin AdvReac Intermediate Nausea Verified 07/07/24 04:41 General SANTHOSH: 4 Exam Narrative Exam Narrative: Const: WDWN female in NAD. VS per triage. HEENT: NC/AT. Normal facial exam. Neck: Supple. Trachea midline. Lungs: Normal respiratory effort. Lungs are clear. Cor: RRR without murmur. Good radial pulses. GI: Soft/ND/NT. Back: No CVAT. Neuro: A+O x 3. Normal speech, mentation, gait. Cranial nerves II - XII grossly intact. No gross motor or sensory deficit. Ext: No C/C/E. Medical Decision Making Patient presenting to ED with right lower back pain and urinary symptoms. Diagnosed with UTI on June 23 and placed on Macrobid which she completed. Symptoms resolved. Right low back pain on and off for a couple of days and recurrent urinary symptoms early this morning. Previous urine culture from the grew 2 different E. coli which were pansensitive. Given the right low back pain with no CVAT consider ureteral stone. IV established. Fluids and ceftriaxone ordered. Labs, urinalysis, stone study will be obtained. 06:00 - Patient's urine does appear infected once again. Her white count is elevated to 17.4. Her kidney function is normal. She is not . Noncontrast CT scan preliminary read shows mild right hydroureter with periureteral stranding but no definite obstructing calculus. Because of the hydroureter and the possibility of a non-radiopaque stone or lesion I have discussed with patient obtaining repeat CT scan with contrast as it is imperative to determine that the ureter is clear and findings are only present due to infection without obstruction. Patient is agreeable to repeat scan. She does state that the last scan she had with contrast caused her to have some chest discomfort and pressure. She did not break out into hives or have any airway problems and has had contrast prior to that number of times. Doubt this is allergic in nature but will premedicate with diphenhydramine prior to contrast CT. 07:00 - Contrast CT with inflammation of the ureter but no evidence of obstruction and no stone. She has a nonobstructing stone in the right kidney which is of no consequence at this time. She will be started on cefpodoxime for the next 10 days. She is encouraged to stay hydrated and alternate acetaminophen with ibuprofen as needed. Follow-up with her primary care towards the end of finishing off her antibiotic. Return precautions provided. Medical Records Medical records reviewed: Yes I reviewed the patient's medical records. Lab Data Lab results reviewed: Yes I reviewed the patient's lab results. Lab results narrative: see MDM PFS All Active Problems (Updated 07/07/24 @ 07:11 by Ben Lancaster MD) Pyelonephritis (Acute) Contraceptive management (Acute) 03/2014 Nexplanon 07/2016 Nexplanon removed. OCPs started. 09/2016 Noncompliant with OCPs. Mirena IUD inserted. 05/2017 Mirena removed, Ortho Evra patch initiated Abnormal weight loss (Acute 12/16/11) 04/17 nutrition consult and lab eval. Anxiety (Acute 01/14/13) BV (bacterial vaginosis) (Acute 03/20/17) Breakthrough bleeding on Nexplanon (Acute 03/16/15) Chlamydia (Acute 04/15/14) 05/2014 neg LEANNE. 06/04/15 New infection. Rx with Azithromycin 03/2016 ? new infection vs partner never treated. Rx with Azithromycin for both pt and her partner. 04/28/16 LEANNE - no GC/CT. Pt has been counseled regarding condoms. Constipation (Acute 01/03/12) Dental caries (Acute 12/16/11) Depression (Acute 05/02/14) Eczema (Acute 06/29/12) Excessive and frequent menstruation (Acute 01/03/12) Headache (Acute 12/16/11) IUD (intrauterine device) in place (Acute 09/08/16) Idiopathic scoliosis (Acute 12/16/11) Learning difficulty (Acute 12/16/11) Medical History Dysmenorrhea in adolescent improved with hormonal contraception. Frequent headaches ? menstrual related. Chlamydia infection 04/17/14. Treated with neg LEANNE. 06/04/15 New infection. Rx with Azithromycin 03/29/2016 Rx with Azithromycin. LEANNE neg 05/02/16. BV (bacterial vaginosis) 11/2016. Rx with Metronidazole 03/20/17. Rx with Metronidazole. Surgical History H/O laparoscopy History of section Repair of umbilical hernia (~2010) Family History Mother No problems noted. Other Graves disease Social History Smoking/Tobacco Use Status: Never Smoking risk assessment performed?: Yes Alcohol Intake: never Drug use: Daily Substance use type: marijuana Housing: house Number of Children: 0 current occupation: [employer] Sexually active: Yes Seatbelt use: always Do you feel safe at home: Yes Do you feel safe in your relationship?: Yes Female Reproductive History Menstrual control method: patch
[2024-07-07 04:42] VITALS: BP 157/106; PULSE 83; RESP 16; TEMP 36.1; O2SAT 98
[2024-07-07 04:54] LABS: Clarity Clear (Clear); Leukocyte Esterase Color Interference (Negative); Nitrite Color Interference (Negative); Specific Gravity 1.025 (1.005-1.025)
[2024-07-07 04:55] LABS: Bilirubin Color Interference (Negative); Blood Color Interference (Negative); Glucose Color Interference mg/dL (Negative); Ketones Color Interference mg/dL (Negative); Urobilinogen Color Interference mg/dL (Up to 0.2)
[2024-07-07 04:56] LABS: Bacteria Few HPF (Negative); C & S Indicated? Yes; Casts Negative LPF (Negative); Crystals Negative HPF (Negative); Epithelial Cells Rare HPF (Negative); Mucus Negative (Negative)
[2024-07-07] MEDS: Ondansetron 4 MG/2 ML VIAL IVP (04:56)
[2024-07-07] MEDS: Normal Saline 1,000 ML 1000 ML IV (04:56)
[2024-07-07] MEDS: Ketorolac 15 MG/ML VIAL IVP (04:57)
[2024-07-07 04:58] LABS: Abs Immature Grans 0.08 10^3/uL (0.0-0.06); Absolute Eosinophil Count 0.21 10^3/uL (0.0-0.7); Basophils % 0.5 %; Eosinophils % 1.2 %; HGB 14.3 g/dL (11.2-15.7); Immature Grans % 0.5 %; MCH 29.9 pg (27.0-33.0); MCHC 33.3 % (32.0-36.0); MCV 90 fL (80-95); MPV 10.6 fL (8.0-11.0); Monocytes % 5.3 %; Neutrophils % 81.5 %; Platelet Count 325 10^3/uL (130-400); RBC 4.79 10^6/uL (3.93-5.22); RDW 12.5 % (11.7-14.6); RDW-SD 41.4 fL; WBC 17.41 10^3/uL (4.4-10.8)
[2024-07-07 05:00] LABS: Absolute Basophil Count 0.09 10^3/uL (0.0-0.2); Absolute Lymphocyte Count 1.92 10^3/uL (1.2-3.4); Absolute Monocyte Count 0.92 10^3/uL (0.1-0.8); Absolute Neutrophil Count 14.19 10^3/uL (1.2-6.7)
[2024-07-07 05:17] LABS: Anion Gap 9.8 mmol/L (3-11); BUN 12 mg/dL (7-18); CO2 25.2 mmol/L (21.0-32.0); CREATININE 0.8 mg/dL (0.55-1.02); Calcium 9.4 mg/dL (8.5-10.1); Chloride 101 mmol/L (98-107); Estimated GFR 102.86 (mL/min/1.73m2); Glucose 126 mg/dL (74-106); Potassium 3.8 mmol/L (3.5-5.1); Sodium 136 mmol/L (136-145)
--- NOTE | 2024-07-07 05:32 | DI.VRAD_ITS ---
PROCEDURE INFORMATION: Exam: CT Abdomen And Pelvis Without Contrast Exam date and time: 07/07/2024 5:14 AM Age: 29 years old Clinical indication: Abdominal pain; Flank; Right; Additional info: Right flank pain TECHNIQUE: Imaging protocol: Computed tomography of the abdomen and pelvis without contrast. COMPARISON: CT RENAL COLIC WO CONTRAST 07/19/2017 7:33 AM FINDINGS: Limitations: Mild motion artifact. No contrast was administered, limiting evaluation for some pathologies. Liver: No focal hepatic lesion identified, within the limitations of a noncontrast examination. Gallbladder and biliary ducts: Sludge and possible calculi in the gallbladder. Pancreas: No CT evidence for acute pancreatitis. Spleen: No splenomegaly. Adrenal glands: No mass. Kidneys and ureters: Right renal calculus. Minimal right hydroureter with periureteral stranding. No definite ureteral calculi identified at this time. Faint density in the right hemipelvis appears to be secondary to artifact. No bladder calculi seen. Stomach and bowel: Apparent gastric thickening commensurate with underdistention. No intestinal obstruction is evident. Areas of apparent mural thickening in the colon commensurate with underdistention. Appendix: No evidence of appendicitis. Intraperitoneal space: Trace pelvic fluid, nonspecific in this 29-year-old female patient. Vasculature: No abdominal aortic aneurysm. Lymph nodes: Nonspecific mesenteric lymph nodes. Urinary bladder: No bladder calculi seen. The urinary bladder appears mildly thickened but is incompletely distended. Mild stranding in the fat adjacent to the urinary bladder. Reproductive: Small low-density foci in the ovaries attributed to physiologic change/follicles. Bones/joints: No pertinent acute abnormality seen. Soft tissues: No pertinent acute abnormality seen. IMPRESSION: 1. Mild right hydroureter with periureteral stranding. No definite obstructing calculus identified at this time. Consider recent stone passage, obstruction by a non radiopaque lesion. Please note that pyelitis/pyelonephritis cannot be excluded on noncontrast examination. 2. Thickening of the urinary bladder may be secondary to incomplete distension. Underlying cystitis not excluded. Please correlate clinically. 3. Additional findings as above. Dictated and Authenticated by: Katy Hector MD. Orderin Tonny Contreras MD
[2024-07-07] MEDS: cefTRIAXone 1 GM/50 ML BAG IVPB (05:53)
[2024-07-07] MEDS: diphenhydrAMINE 50 MG/ML VIAL IVP (05:56)
[2024-07-07] MEDS: Normal Saline - Diluent 50 ML VIAL IJ (06:47)
[2024-07-07] MEDS: Omnipaque 350 MG/ML 100 ML BTL IJ (06:48)
--- NOTE | 2024-07-07 07:05 | DI.VRAD_ITS ---
PROCEDURE INFORMATION: Exam: CT Abdomen And Pelvis With Contrast Exam date and time: 07/07/2024 6:37 AM Age: 29 years old Clinical indication: Other: UTI; Mild hydroureter noncon CT; R low back pain TECHNIQUE: Imaging protocol: Computed tomography of the abdomen and pelvis with contrast. Contrast material: OMNI 350; Contrast volume: 75 ml; Contrast route: INTRAVENOUS (IV); COMPARISON: CT RENAL COLIC WO 07/07/2024 5:14 AM FINDINGS: Liver: No focal hepatic lesion identified. Gallbladder and biliary ducts: No radiodense gallbladder calculi seen. Pancreas: No CT evidence for acute pancreatitis. Spleen: No splenomegaly. Adrenal glands: No mass. Kidneys and ureters: Nonobstructing right renal calculus. Mild right ureteral thickening with periureteral stranding. Stomach and bowel: No intestinal obstruction is evident. Areas of apparent mural thickening in the colon commensurate with underdistention. Appendix: No evidence of appendicitis. Intraperitoneal space: Trace pelvic fluid, nonspecific in this 29-year-old female patient. Vasculature: No abdominal aortic aneurysm. Lymph nodes: Nonspecific mesenteric and retroperitoneal lymph nodes. Urinary bladder: No acute findings. Reproductive: Small low-density foci in the ovaries attributed to physiologic change/follicles. Bones/joints: No pertinent acute abnormality seen. Soft tissues: No pertinent acute abnormality seen. IMPRESSION: Right ureteral thickening and stranding suggesting pyelitis. Please correlate clinically. Dictated and Authenticated by: Katy Hector MD. Orderin Tonny Contreras MD
[2024-07-07 07:35] VITALS: BP 125/68; PULSE 81; RESP 16; O2SAT 100
--- NOTE | 2024-07-07 13:04 | ED.PROG_ITS ---
Date of service: 07/07/24 Time of Service: 13:04 Medical Decision Making This patient was seen in the emergency department earlier today. She went to her pharmacy and reportedly the cefpodoxime was $60. The pharmacist noted that cefdinir, which is an oral third-generation antibiotic, was under $20. Given that these are both third-generation oral antibiotics we will switch prescriptions. Quality:SDOH Health Related Social Needs: No Data to Display Discharge Plan Disposition Patient Disposition: Home Condition: Good Discharge Details Clinical Impression: Pyelonephritis Primary Care Provider: Lucy Waters ED Provider: Ben Lancaster [place] Meds and New Rx's Prescriptions: New cefdinir 300 mg capsule 300 mg PO Q12H Qty: 20 0RF No Action fluoxetine 20 mg capsule 20 mg PO DAILY Discharge Instructions Instructions: Urinary Tract Infection, Adult ED Additional Instructions: You have a urinary tract infection/pyelonephritis which will require repeat antibiotic course. You will need to take your first dose tomorrow morning. Drink plenty of fluids to stay hydrated. Alternate acetaminophen with ibuprofen for any pain or fever. Follow-up with primary care next week. Return to ED for severe worsening pain, persistent vomiting, continued spiking fevers, other concerns. Referrals: Lucy Waters [Primary Care Provider] -
--- NOTE | 2024-07-10 08:17 | NUR.NOTE ---
Accessed Pt chart to document the antibiotics given to the Pt on the Specimen Report Form. The form was then given to Dr Kendall
== END 2024-07-07 07:47 | disposition home or self-care (01) ==
PROVIDERS: Emergency Provider Emergency Medicine; PCP Internal Medicine
DX: N12 Tubulo-interstitial nephritis, not specified as acute or chronic (principal); R10.30 Lower abdominal pain, unspecified; M54.50 Low back pain, unspecified; R11.0 Nausea
CPT/HCPCS: 99284; 99285; 96374; 96375; 81025; 00123; 80048; 87077; 96361; 74176; 74177; 81003; 81015; 85025; 87086; 87186; J0696; J1200; J1885; J2405; J3490

== ENCOUNTER 2025-01-30 07:16 | Emergency (ER) | payer SELFPAY ==
[2025-01-30 07:18] VITALS: BP 133/112; PULSE 91; RESP 18; TEMP 36.3; O2SAT 98
[2025-01-30 07:43] LABS: Glucose Negative (Negative)
[2025-01-30 07:51] VITALS: BP 116/88; PULSE 87; RESP 20; O2SAT 98
[2025-01-30 07:56] LABS: C & S Indicated? No; RBC >50 HPF (0-2)
--- NOTE | 2025-01-30 08:25 | ED.GENADUL_ITS ---
Discharge Plan Disposition Patient Disposition: Home Condition: Stable Discharge Details Clinical Impression: Vaginal bleeding Primary Care Provider: Lucy Waters ED Provider: Goldie Valverde Home Meds and New Rx's Prescriptions: No Action fluoxetine 20 mg capsule 20 mg PO DAILY Discharge Instructions Instructions: Heavy Periods (DC) Additional Instructions: You were seen in the emergency department today for evaluation of vaginal bleeding. In our department a full physical examination performed, and had laboratory studies that were reassuring, with no sign of anemia, severe dehydration, or other abnormalities. You do not have any sign of a urinary tract infection and your test today was negative. For your cramping and heavy vaginal bleeding I do recommend that you trial ibuprofen, 600 mg 3 times per day while on your period. This can help with cramping but can also reduce the heaviness of the bleeding. I have placed a referral for you to establish with a primary care provider, and you can always return to the emergency department if you have sudden or severe change or worsening of your abdominal pain, have vaginal bleeding that saturates a pad within an hour, for more than 2 hours in a row, or any other severe or concerning symptoms. Please follow-up with your primary care provider in the next few days to discuss this visit and any symptoms that change, worsen, or persist. Thank you for allowing us to be part of your care. Stand Alone Forms: Portal Information Discharge Data Discharge Date/Time-TO BE ENTERED AT DEPARTURE: 01/30/25 09:33 HPI General Mode of arrival: ambulatory . Date/Time Provider Initiated Documentation: 01/30/25 07:18 . Limitations to Documentation: no limitations . Information obtained by: patient and old records reviewed . HPI Narrative: This is a 29-year-old female patient, , with a history of endometriosis, depression and anxiety, presenting for evaluation of vaginal bleeding. The patient reports that she and her partner are trying to get , she had spotting at home starting on Monday, and her vaginal bleeding has gradually increased. On Monday she had to start wearing tampons to manage the bleeding and today has noted some large clots. She reports some abdominal cramping, more on the right which is typical for her given her endometriosis. She took a home test yesterday which was negative. She is not currently using any form of hormonal control. Reports that she feels slightly woozy but not dizzy, has been maintaining her hydration. The patient otherwise has been in her normal state of health, denies vaginal discharge, dysuria, fever or chills. 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 CV: Appears well perfused, heart with regular rate and rhythm, strong distal pul ses Abdomen: Non-distended, soft, minimal tenderness to palpation in the suprapubic region and bilateral lower quadrants without rigidity, rebound, or guarding. : Pelvic examination supervised by [place] Haro, showing normal external female genitalia with some dark red blood at the vaginal introitus. The cervix is closed, no cervical motion tenderness, with a small amount of pooled dark red blood in the posterior fornix, which was removed using ring forceps and gauze. No significant discomfort with bimanual examination, no large clots requiring evacuation from the vaginal vault MSK: Moves 4 extremities without apparent limitation in ROM Skin: Visualized skin without rashes, cyanosis. Neuro: Normal Gait, no obvious focal deficits or facial asymmetry. Speaks in full, clear sentences. Psych: Appropriate for situation. Course Vital Signs Vital signs: Vital Signs Temperature 36.3 C L 01/30/25 07:18 Pulse 91 H 01/30/25 07:18 Respiratory Rate 18 01/30/25 07:18 Blood Pressure 133/112 H 01/30/25 07:18 Pulse Oximetry 98 01/30/25 07:18 Temperature 36.3 C L 01/30/25 07:18 Pulse 87 01/30/25 07:51 Respiratory Rate 20 01/30/25 07:51 Blood Pressure 116/88 01/30/25 07:51 Blood Pressure Mean 97 01/30/25 07:51 Pulse Oximetry 98 01/30/25 07:51 Oxygen Delivery Method Room Air 01/30/25 07:51 Oxygen Flow Rate 0 01/30/25 07:51 Pain Level 2 01/30/25 07:32 Lab/Test Results Lab/Test Results: Laboratory Tests Range/Units 01/30/25 07:20 Urine Color (Yellow) Yellow Urine Clarity (Clear) Clear Urine pH (5-8) 8.0 Ur Specific Wilson (1.005-1.025) 1.020 Urine Protein (Neg-Trace) mg/dL Negative Urine Ketones (Negative) mg/dL Negative Urine Blood (Negative) Large H Urine Nitrite (Negative) Negative Urine Bilirubin (Negative) Negative Urine Urobilinogen (Up to 0.2) mg/dL 0.2 Ur Leukocyte Esterase (Negative) Negative Urine RBC (0-2) HPF >50 H Urine WBC (0-5) HPF 3-5 Ur Epithelial Cells (Negative) HPF Negative Urine Crystals (Negative) HPF Negative Urine Bacteria (Negative) HPF Negative Urine Casts (Negative) LPF Negative Urine Mucus (Negative) Negative Ur Culture Indicated? No Urine Glucose (Negative) mg/dL Negative POC- Test(urine) Negative Medical Decision Making This is a 29-year-old female patient presenting for evaluation of vaginal bleeding. My differential includes but is not limited to abnormal uterine bleeding, normal menstrual period, certainly considered related complaints including implantation bleeding, miscarriage, though the patient had a negative urine test here in the emergency department. Considered anemia, metabolic and electrolyte derangement, dehydration and kidney injury. No dysuria to suggest urinary tract infection, no vaginal discharge to suggest PID/TOA. The patient's exam is reassuring against severe intra-abdominal pathology such as appendicitis, ovarian torsion, diverticulitis, bowel obstruction. We will obtain labs to include CBC, CMP, magnesium, beta Qual, and lipase. -I independently interpreted the laboratory studies, which show no significant leukocytosis, anemia, or thrombocytopenia. The chemistry panel is without evidence of electrolyte abnormality, kidney dysfunction, or liver injury. Lipas e is not significantly elevated, urinalysis with large blood but no infectious findings, consistent with her vaginal bleeding. Confirmatory test is negative. On reassessment the patient's abdominal examination remains benign, she is hemodynamically appropriate and I am most concerned for abnormal uterine bleeding. I recommended that she trial ibuprofen, 600 mg 3 times daily for cramping and heavy vaginal bleeding, and provided her with a referral to establish with a primary care provider. At this time, the patient has had a full medical evaluation and is safe for discharge to home. They are hemodynamically stable, ambulatory, and tolerating PO. They are understanding of the follow-up plan and return precautions. They left our facility without incident. Goldie Valverde MD [facility] All Active Problems (Updated 01/30/25 @ 09:24 by Goldie Valverde MD) Vaginal bleeding (Acute) Contraceptive management (Acute) 03/2014 Nexplanon 07/2016 Nexplanon removed. OCPs started. 09/2016 Noncompliant with OCPs. Mirena IUD inserted. 05/2017 Mirena removed, Ortho Evra patch initiated Abnormal weight loss (Acute 12/16/11) 04/17 nutrition consult and lab eval. Anxiety (Acute 01/14/13) BV (bacterial vaginosis) (Acute 03/20/17) Breakthrough bleeding on Nexplanon (Acute 03/16/15) Chlamydia (Acute 04/15/14) 05/2014 neg LEANNE. 06/04/15 New infection. Rx with Azithromycin 03/2016 ? new infection vs partner never treated. Rx with Azithromycin for both pt and her partner. 04/28/16 LEANNE - no GC/CT. Pt has been counseled regarding condoms. Constipation (Acute 01/03/12) Dental caries (Acute 12/16/11) Depression (Acute 05/02/14) Eczema (Acute 06/29/12) Excessive and frequent menstruation (Acute 01/03/12) Headache (Acute 12/16/11) IUD (intrauterine device) in place (Acute 09/08/16) Idiopathic scoliosis (Acute 12/16/11) Learning difficulty (Acute 12/16/11) Medical History Dysmenorrhea in adolescent improved with hormonal contraception. Frequent headaches ? menstrual related. Chlamydia infection 04/17/14. Treated with neg LEANNE. 06/04/15 New infection. Rx with Azithromycin 03/29/2016 Rx with Azithromycin. LEANNE neg 05/02/16. BV (bacterial vaginosis) 11/2016. Rx with Metronidazole 03/20/17. Rx with Metronidazole. Surgical History H/O laparoscopy History of section Repair of umbilical hernia (~2010) Family History Mother No problems noted. Other Graves disease Social History Smoking/Tobacco Use Status: Never Smoking risk assessment performed?: Yes Alcohol Intake: never Drug use: Daily Substance use type: marijuana Housing: house Number of Children: 0 current occupation: [employer] [place] [employer] Sexually active: Yes Seatbelt use: always Do you feel safe at home: Yes Do you feel safe in your relationship?: Yes Female Reproductive History Menstrual control method: patch
[2025-01-30 08:26] LABS: Abs Immature Grans 0.03 10^3/uL (0.0-0.06); HCT 38.5 % (36.0-46.0); HGB 12.7 g/dL (11.2-15.7); Immature Grans % 0.4 %; MCH 29.3 pg (27.0-33.0); MCHC 33.0 % (32.0-36.0); MCV 89 fL (80-95); MPV 10.5 fL (8.0-11.0); Platelet Count 282 10^3/uL (130-400); RBC 4.34 10^6/uL (3.93-5.22); RDW 12.3 % (11.7-14.6); RDW-SD 40.2 fL; WBC 6.77 10^3/uL (4.4-10.8)
[2025-01-30 08:40] LABS: Lipase 56 U/L (<53)
[2025-01-30 08:41] LABS: Magnesium 2.0 mg/dL (1.6-2.6)
[2025-01-30 08:42] LABS: ALT 14 U/L (10-49); AST 15 U/L (<34); Albumin 4.4 g/dL (3.2-5.0); Alkaline Phosphatase 81 U/L (46-116); Anion Gap 5.5 mmol/L (3-11); BUN 11 mg/dL (9-23); Bilirubin, Total 0.30 mg/dL (0.2-1.2); CO2 29.5 mmol/L (20.0-31.0); Calcium 8.7 mg/dL (8.3-10.6); Chloride 105 mmol/L (98-107); Glucose 104 mg/dL (74-106); Potassium 4.1 mmol/L (3.5-5.1); Sodium 140 mmol/L (136-145); Total Protein 7.4 g/dL (5.7-8.2)
[2025-01-30 09:04] LABS: HCG Qual (Serum) Negative
== END 2025-01-30 09:33 | disposition home or self-care (01) ==
PROVIDERS: Emergency Medicine; Emergency Provider Emergency Medicine; PCP Internal Medicine
DX: N93.9 Abnormal uterine and vaginal bleeding, unspecified (principal); R10.84 Generalized abdominal pain
CPT/HCPCS: 36415; 80053; 81025; 83690; 99282; 81003; 81015; 83735; 84703; 85025; 99283